=== PATIENT | female | born 1980 | race Hispanic/Latino ===

== ENCOUNTER 2019-01-23 08:36 | Emergency (ER) | payer OTHER ==
[2019-01-23 09:04] LABS: Absolute Lymphocytes (CBC) 1.2 K/uL (0.7-4.9); Basophils % 0.7 % (0-1.3); Hematocrit 31.3 % (36.0-45.0); Lymphocytes % 21.8 % (15.3-44.8); MPV 7.1 fL (7.6-11.3); RBC Red Blood Cell Count 4.02 M/uL (3.86-4.86)
[2019-01-23] MEDS ORDERED: NA CHLORIDE 0.9% 1,000 ML ONE (09:12)
[2019-01-23 09:24] LABS: Urine Blood 2+ (NEG); Urine Glucose NEGATIVE (NEG); Urine Protein TRACE (NEG); Urine pH 5.5 (5.0-7.0)
[2019-01-23 09:29] LABS: Albumin 3.5 g/dL (3.4-5.0); Bilirubin Direct 0.1 mg/dL (0-0.2); Bilirubin Total 0.3 mg/dL (0.2-1.0); Potassium 3.3 mmol/L (3.5-5.1); Protein, Total 8.1 g/dL (6.4-8.2)
[2019-01-23 09:40] LABS: Urine Bacteria >50 /HPF (<20); Urine RBC >50 /HPF (NONE SEEN)
[2019-01-23 09:41] LABS: Urine Culture Reflex Order NOT NEEDED; Urine Mucus LIGHT /HPF (NONE SEEN)
--- NOTE | 2019-01-23 10:05 | RAD REPORT ---
EXAM DESCRIPTION: CT - Stone Protocol - 01/23/2019 9:15 am CLINICAL HISTORY: Abdominal pain, back pain, dysuria COMPARISON: CT January 2013 TECHNIQUE: Axial 5 mm thick images were obtained without oral or IV contrast. The [id number] span s the entirety of the system partially obscuring uppermost abdomen and lung bases. All CT scans are performed using dose optimization technique as appropriate and may include automated exposure control or mA/KV adjustment according to patient size. FINDINGS: No hydronephrosis is present and no obstructing ureteral calculi. No suspicious renal mass es. Isodense masses and pyelonephritis are not excluded on a stone protocol CT scan. No urinary bladd er suspicious finding. No significant adrenal finding. Multiple phleboliths are present in the pelvis . Contracted state of the bladder limits assessment. Uterus and ovaries show no suspicious findings. Imaged portions of the liver, spleen and pancreas show no suspicious findings on non-contrast imaging . Gallbladder is absent. No biliary tree dilatation. No suspicious bowel findings. Appendix is not clearly defined. No indirect evidence for appendicitis. No hernia, mass or bulky lymphadenopathy noted. No free air, free fluid or inflammatory stranding. No significant bony abnormality. IMPRESSION: Negative CT stone protocol study. Isodense masses, pyelonephritis and cystitis cannot be fully excluded on a noncontrast CT study.
[2019-01-23] MEDS ORDERED: POTASSIUM CL SA 10 MEQ TAB PO ONE (10:17)
[2019-01-23] MEDS ORDERED: SMZ./TMP. 800/160 MG TABLET ONE (10:17)
--- NOTE | 2019-01-23 10:22 | ER ---
Nurse's Notes [facility] Name: Jory Wood Age: 38 yrs Sex: Female : 1980 Arrival Date: 01/23/2019 Time: 08:38 Bed 17 Private MD: Diagnosis: Urinary tract infection, site not specified Presentation: 01/23 08:46 Presenting complaint: Mid back pain that radiates to upper abdomen since 0400 today. hb Also reports foul smelling urine and urinary frequency x 2 days. Transition of care: patient was not received from another setting of care. Onset of symptoms was January 22, 2019. Risk Assessment: Do you want to hurt yourself or someone else? Patient reports no desire to harm self or others. Initial Sepsis Screen: Does the patient meet any 2 criteria? No. Patient's initial sepsis screen is negative. Does the patient have a suspected source of infection? No. Patient's initial sepsis screen is negative. Care prior to arrival: None. 08:46 Method Of Arrival: Ambulatory 08:46 Acuity: ARUN 3 hb Triage Assessment: 08:49 General: Appears in no apparent distress. uncomfortable, Behavior is calm, cooperative. hb Pain: Pain currently is 8 out of 10 on a pain scale. EENT: No signs and/or symptoms were reported regarding the EENT system. Neuro: Level of Consciousness is awake, alert, obeys commands, Oriented to person, place, time, situation. Cardiovascular: Capillary refill < 3 seconds Patient's skin is warm and dry. Respiratory: Airway is patent Respiratory effort is even, unlabored, Respiratory pattern is regular, symmetrical, Breath sounds are clear bilaterally. GI: Abdomen is non-distended, Bowel sounds present X 4 quads. Abd is soft X 4 quads Abdomen is tender to palpation right upper and right lower quadrant Reports upper abdominal pain. : Reports urinary frequency, foul smelling urine. Derm: Skin is pink, warm \T\ dry. Musculoskeletal: Range of motion: Reports mid back pain that radiates to upper abdomen. 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 - Social history:: Smoking status: Patient/guardian denies using tobacco. - Ebola Screening: : No symptoms or risks identified at this time. Screenin:51 Abuse screen: Denies threats or abuse. Denies injuries from another. Nutritional hb screening: No deficits noted. Tuberculosis screening: No symptoms or risk factors identified. Fall Risk None identified. Assessment: 08:51 General: see triage assessment. hb 09:40 Reassessment: Patient appears in no apparent distress at this time. Patient and/or hb family updated on plan of care and expected duration. Pain level reassessed. Patient is alert, oriented x 3, equal unlabored respirations, skin warm/dry/pink. Vital Signs: 08:48 BP 124 / 94; Pulse 76; Resp 16; Temp 97.1; Pulse Ox 100% ; Weight 83.01 kg; Height 5 hb ft. (152.40 cm); Pain 8/10; 10:00 BP 122 / 88; Pulse 74; Resp 14; Pulse Ox 100% on R/A; hb 08:48 Body Mass Index 35.74 (83.01 kg, 152.40 cm) hb ED Course: 08:38 Patient arrived in ED. as 08:41 Dan[facility]C [facility] kb 08:41 Shane Donaldson MD is Attending Physician. kb 08:46 Jamia Corbett, ANA is Primary Nurse. hb 08:47 Triage completed. hb 08:48 Arm band placed on. hb 08:51 Patient has correct armband on for positive identification. Bed in low position. Call light in reach. Side rails up X 1. 08:57 Initial lab(s) drawn, by me, sent to lab. Inserted saline lock: 22 gauge in right jb1 antecubital area, using aseptic technique. Blood collected. 09:17 CT Stone Protocol In Process Unspecified. EDMS 10:31 No provider procedures requiring assistance completed. IV discontinued, intact, hb bleeding controlled, No redness/swelling at site. Pressure dressing applied. Administered Medications: 09:00 Drug: NS 0.9% 1000 ml Route: IV; Rate: 1000 ml; Site: right antecubital; hb 10:00 Follow up: Response: No adverse reaction; IV Status: Completed infusion; IV Intake: hb 1000ml 10:20 Drug: Potassium Chloride 20 mEq Route: PO; hb 10:33 Follow up: Response: Medication administered at discharge. hb 10:20 Drug: Bactrim (160 mg-800 mg (DS) 1 tablet Route: PO; hb 10:33 Follow up: Response: Medication administered at discharge. hb Intake: 10:00 IV: 1000ml; Total: 1000ml. hb Outcome: 10:21 Discharge ordered by . bouchra 10:31 Discharged to home ambulatory. hb 10:31 Condition: stable 10:31 Discharge instructions given to patient, Instructed on discharge instructions, follow up and referral plans. medication usage, Demonstrated understanding of instructions, follow-up care, medications, Prescriptions given X 1. 10:32 Patient left the ED. hb 10:34 Patient left the ED. hb Addendum: 01/26/2019 07:22 Addendum: Culture Results: Positive urine culture. Bacteria is resistant to, has s s intermediate sensitivity, or is not tested against prescribed antibiotics. Report given to KENDRICK for further evaluation and then to flask pusher for follow up with patient. 18:40 Addendum: Culture Results: Phone call Attempt #1 pt still having urinary s/s, called in i w Macrobid 100 mg BID to YO SULLIVAN. Signatures: Dispatcher [employer] José Luis Garcia [email or web address] Danay Vargas, SOAP TENDER-Kar DAVEY-Pamella Jenkins Irene, RN ANA Cha Pathak RN RN ss Baxter, Heather, RN RN
--- NOTE | 2019-01-23 10:22 | EDPHYS ---
Physician Documentation [facility] Name: Jory Wood Age: 38 yrs Sex: Female : 1980 Arrival Date: 01/23/2019 Time: 08:38 Bed 17 Private MD: ED Physician Shane Donaldson HPI: 01/23 08:58 This 38 yrs old Female presents to ER via Ambulatory with complaints of Back kb Pain, Abdominal Pain. 09:02 The patient presents with abdominal pain in the right upper quadrant, right lower kb quadrant. Onset: The symptoms/episode began/occurred this morning, at 04:00. The symptoms do not radiate. Associated signs and symptoms: Pertinent positives: flank pain, foul smelling urine, urgency. The symptoms are described as constant. Modifying factors: The symptoms are alleviated by nothing, the symptoms are aggravated by nothing. Severity of pain: At its worst the pain was moderate in the emergency department the pain is unchanged. The patient has not experienced similar symptoms in the past. The patient has not recently seen a physician. Pt reports right back and abd pain that started at 0400 this morning. States she noticed urinary urgency yesterday. Today had foul smelling urine. 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 - Social history:: Smoking status: Patient/guardian denies using tobacco. - Ebola Screening: : No symptoms or risks identified at this time. ROS: 08:59 Constitutional: Negative for fever, chills, and weight loss, ENT: Negative for injury, kb pain, and discharge, Neck: Negative for injury, pain, and swelling, Cardiovascular: Negative for chest pain, palpitations, and edema, Respiratory: Negative for shortness of breath, cough, wheezing, and pleuritic chest pain, Back: Negative for injury and pain, MS/Extremity: Negative for injury and deformity, Skin: Negative for injury, rash, and discoloration, Neuro: Negative for headache, weakness, numbness, tingling, and seizure. 08:59 Abdomen/GI: Positive for abdominal pain. 08:59 : Positive for flank pain, foul smelling urine, urgency. Exam: 09:00 Constitutional: This is a well developed, well nourished patient who is awake, alert, kb and in no acute distress. Head/Face: Normocephalic, atraumatic. Neck: Trachea midline, no thyromegaly or masses palpated, and no cervical lymphadenopathy. Supple, full range of motion without nuchal rigidity, or vertebral point tenderness. No Meningismus. Chest/axilla: Normal chest wall appearance and motion. Nontender with no deformity. No lesions are appreciated. Cardiovascular: Regular rate and rhythm with a normal S1 and S2. No gallops, murmurs, or rubs. Normal PMI, no JVD. No pulse deficits. Respiratory: Lungs have equal breath sounds bilaterally, clear to auscultation and percussion. No rales, rhonchi or wheezes noted. No increased work of breathing, no retractions or nasal flaring. Skin: Warm, dry with normal turgor. Normal color with no rashes, no lesions, and no evidence of cellulitis. MS/ Extremity: Pulses equal, no cyanosis. Neurovascular intact. Full, normal range of motion. Neuro: Awake and alert, GCS 15, oriented to person, place, time, and situation. Cranial nerves II-XII grossly intact. Motor strength 5/5 in all extremities. Sensory grossly intact. Cerebellar exam normal. Normal gait. 09:00 Abdomen/GI: Inspection: abdomen appears normal, Bowel sounds: normal, in all quadrants, Palpation: soft, in all quadrants, mild abdominal tenderness, in the right upper quadrant and right lower quadrant. 09:00 Back: CVA tenderness, that is mild, is noted on the right. Vital Signs: 08:48 BP 124 / 94; Pulse 76; Resp 16; Temp 97.1; Pulse Ox 100% ; Weight 83.01 kg; Height 5 hb ft. (152.40 cm); Pain 8/10; 10:00 BP 122 / 88; Pulse 74; Resp 14; Pulse Ox 100% on R/A; hb 08:48 Body Mass Index 35.74 (83.01 kg, 152.40 cm) hb MDM: 08:41 Patient medically screened. kb 08:58 Data reviewed: vital signs, nurses notes. Data interpreted: Pulse oximetry: on room air kb is 100 %. Interpretation: normal. 10:12 Counseling: I had a detailed discussion with the patient and/or guardian regarding: the kb historical points, exam findings, and any diagnostic results supporting the discharge/admit diagnosis, lab results, radiology results, the need for outpatient follow up, a family practitioner, to return to the emergency department if symptoms worsen or persist or if there are any questions or concerns that arise at home. 01/23 08:45 Order name: Basic Metabolic Panel; Complete Time: 09:29 kb 01/23 08:45 Order name: CBC with Diff; Complete Time: 09:09 kb 01/23 08:45 Order name: Hepatic Function; Complete Time: : kb 01/23 08:45 Order name: Lipase; Complete Time: : kb 01/23 09:00 Order name: Urine Microscopic Only; Complete Time: 09:51 eb 01/23 09:00 Order name: Urine Culture eb 01/23 08:45 Order name: IV Saline Lock; Complete Time: 08:57 kb 01/23 08:45 Order name: Labs collected and sent; Complete Time: 08:57 kb 01/23 09:00 Order name: CT Stone Protocol; Complete Time: 10:11 eb 01/23 09:02 Order name: Urine Dipstick--Ancillary (enter results); Complete Time: 09:29 eb 01/23 09:02 Order name: Urine --Ancillary (enter results); Complete Time: 09:29 eb 01/23 08:45 Order name: Urine Dipstick-Ancillary (obtain specimen); Complete Time: 08:52 kb Administered Medications: 09:00 Drug: NS 0.9% 1000 ml Route: IV; Rate: 1000 ml; Site: right antecubital; hb 10:00 Follow up: Response: No adverse reaction; IV Status: Completed infusion; IV Intake: hb 1000ml 10:20 Drug: Potassium Chloride 20 mEq Route: PO; hb 10:33 Follow up: Response: Medication administered at discharge. hb 10:20 Drug: Bactrim (160 mg-800 mg (DS) 1 tablet Route: PO; hb 10:33 Follow up: Response: Medication administered at discharge. hb Disposition: 12:45 Co-signature as Attending Physician, Shane Donaldson MD I agree with the assessment and kdr plan of care. Disposition: 01/23/19 10:21 Discharged to Home. Impression: Urinary tract infection, site not specified. - Condition is Stable. - Discharge Instructions: Urinary Tract Infection, Adult, [id number]. - Prescriptions for Bactrim DS 800- 160 mg Oral Tablet - take 1 tablet by ORAL route every 12 hours for 7 days; 14 tablet. - Medication Reconciliation Form, Thank You Letter, Antibiotic Education, Prescription Opioid Use, Work release form form. - Follow up: Emergency Department; When: As needed; Reason: Worsening of condition. Follow up: Private Physician; When: 2 - 3 days; Reason: Recheck today's complaints, Continuance of care, Re-evaluation by your physician. Signatures: Dispatcher [employer] EDMS Danay Vargas, CUSTOMER SUCCESS REPRESENTATIVE-C CUSTOMER SUCCESS REPRESENTATIVE-Shane Epps MD MD kdr Jamia Corbett RN RN hb Corrections: (The following items were deleted from the chart) 10:32 10:21 01/23/2019 10:21 Discharged to Home. Impression: Urinary tract infection, site hb not specified. Condition is Stable. Forms are Medication Reconciliation Form, Thank You Letter, Antibiotic Education, Prescription Opioid Use. Follow up: Emergency Department; When: As needed; Reason: Worsening of condition. Follow up: Private Physician; When: 2 - 3 days; Reason: Recheck today's complaints, Continuance of care, Re-evaluation by your physician. kb 10:34 10:32 01/23/2019 10:21 Discharged to Home. Impression: Urinary tract infection, site hb not specified. Condition is Stable. Discharge Instructions: Urinary Tract Infection, Adult, [id number]. Prescriptions for Bactrim DS 800-160 mg Oral Tablet - take 1 tablet by ORAL route every 12 hours for 7 days; 14 tablet. and Forms are Medication Reconciliation Form, Thank You Letter, Antibiotic Education, Prescription Opioid Use, Work release form. Follow up: Emergency Department; When: As needed; Reason: Worsening of condition. Follow up: Private Physician; When: 2 - 3 days; Reason: Recheck today's complaints, Continuance of care, Re-evaluation by your physician. hb
[2019-01-23 10:45] VITALS: BP 124/94; TEMP 97.1; O2SAT 100
== END 2019-01-23 10:34 | disposition home or self-care (01) ==
LOC: ER 08:36
DX: N39.0 Urinary tract infection, site not specified (principal); Z88.5 Allergy status to narcotic agent
CPT/HCPCS: 87088; 85025; 87086; 80048; 36415; 81025; 80076; 87077; 87186; 83690; 76377; 74176; 96360; 99284; J7030; 81003; 81015

== ENCOUNTER 2019-10-23 15:06 | Emergency (ER) | payer SELFPAY, OTHER ==
--- NOTE | 2019-10-23 17:54 | RAD REPORT ---
EXAM DESCRIPTION: Marylou Single View10/23/2019 5:11 pm CLINICAL HISTORY: cough COMPARISON: 2012 FINDINGS: The lungs appear clear of acute infiltrate. The heart is normal size IMPRESSION: No acute abnormalities displayed
--- NOTE | 2019-10-23 18:07 | ER ---
Nurse's Notes [facility] Name: Jory Wood Age: 39 yrs Sex: Female : 1980 Arrival Date: 10/23/2019 Time: 15:14 Bed 14 Private MD: Diagnosis: Shortness of breath;Coronavirus infection, unspecified Presentation: 10/22 15:20 Chief complaint: Patient states: was covid pos. 10/13/19, symptoms have been getting em worse, reports cough when taking deep breath, feels tightness around throat and sinus pressure, denies N/V/D or fever. Coronavirus screen: Patient reports a cough. Patient reports shortness of breath or difficulty breathing. Patient denies measured and/or subjective temperature greater than 100.4F prior to today's visit. Patient denies travel on a cruise ship or to a country the [facility] currently lists as an affected area. Patient denies contact with known and/or suspected case of COVID-19. Ebola Screen: Patient negative for fever greater than or equal to 101.5 degrees Fahrenheit, and additional compatible Ebola Virus Disease symptoms Patient denies exposure to infectious person. Patient denies travel to an Ebola-affected area in the 21 days before illness onset. No symptoms or risks identified at this time. Initial Sepsis Screen: Does the patient meet any 2 criteria? HR > 90 bpm. No. Patient's initial sepsis screen is negative. Does the patient have a suspected source of infection? No. Patient's initial sepsis screen is negative. Risk Assessment: Do you want to hurt yourself or someone else? Patient reports no desire to harm self or others. Onset of symptoms was October 13, 2019. 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 - Social history:: Smoking status: Patient denies any tobacco usage or history of. Screenin:30 Abuse screen: Denies threats or abuse. Nutritional screening: No deficits noted. vc Tuberculosis screening: No symptoms or risk factors identified. Fall Risk None identified. Assessment: 15:45 General: Appears in no apparent distress. Behavior is calm, cooperative, appropriate ah for age. Pain: Denies pain. Neuro: Level of Consciousness is awake, alert, obeys commands, Oriented to person, place, time, situation, Appropriate for age. Cardiovascular: Heart tones S1 S2 present Capillary refill < 3 seconds Patient's skin is warm and dry. Respiratory: Reports shortness of breath on exertion pain with cough Airway is patent Respiratory effort is even, unlabored, Respiratory pattern is regular, symmetrical, the patient has mild shortness of breath. GI:. Derm: Skin is intact, is healthy with good turgor, Skin is dry. Vital Signs: 15:20 BP 117 / 93; Pulse 95; Resp 20; Temp 98.9(O); Pulse Ox 100% on R/A; Weight 73.94 kg; em Height 5 ft. 0 in. (152.40 cm); 16:30 BP 99 / 75; Pulse 74; Resp 18; Pulse Ox 100% ; ah 17:15 BP 108 / 87; Pulse 75; Resp 17; Pulse Ox 100% ; ah 18:00 BP 112 / 83; Pulse 81; Resp 17; Pulse Ox 100% ; ah 15:20 Body Mass Index 31.83 (73.94 kg, 152.40 cm) em ED Course: 15:14 Patient arrived in ED. [facility] 15:22 Triage completed. em 15:22 Arm band placed on. em 15:24 Patient notified of wait time. em 15:32 Shane Donaldson MD is Attending Physician. kdr 16:13 Monserrat Shelton, RN is Primary Nurse. ah 16:15 Patient has correct armband on for positive identification. Placed in gown. Bed in low vc position. Call light in reach. Side rails up X 1. monitoring and evaluation advisor on. Pulse ox on. NIBP on. 17:11 CXR XRAY In Process Unspecified. EDMS 18:34 No provider procedures requiring assistance completed. IV discontinued, intact, vc bleeding controlled, No redness/swelling at site. Pressure dressing applied. Administered Medications: No medications were administered Outcome: 18:06 Discharge ordered by . kdr 18:35 Discharged to home ambulatory. vc 18:35 Condition: good 18:35 Discharge instructions given to patient, Instructed on discharge instructions, follow up and referral plans. Demonstrated understanding of instructions, follow-up care. 18:35 Patient left the ED. vc Signatures: Dispatcher [employer] Shane Stephens MD MD kdr Munoz, Edgar, RN RN Char Márquez RN RN Carlos Schulz [id number] Monserrat Shelton RN RN
--- NOTE | 2019-10-23 18:07 | EDPHYS ---
Physician Documentation [facility] Name: Jory Wood Age: 39 yrs Sex: Female : 1980 Arrival Date: 10/23/2019 Time: 15:14 Bed 14 Private MD: ED Physician Shane Donaldson HPI: 10/22 16:06 This 39 yrs old Female presents to ER via Ambulatory with complaints of kdr COVID+, SYMPTOMS ARE WORSENING. 16:06 The patient or guardian reports cough, that is intermittent, described as mild, with no kdr sputum. Onset: The symptoms/episode began/occurred gradually, 2 week(s) ago. Modifying factors: The symptoms are alleviated by nothing. the symptoms are aggravated by activity. Associated signs and symptoms: The patient has no apparent associated signs or symptoms, Pertinent negatives: chest pain, diarrhea, ear ache, fever, nausea, rhinorrhea, sore throat, vomiting. Severity of symptoms: At their worst the symptoms were mild Just not getting better. The patient has not experienced similar symptoms in the past. The patient has been recently seen by a physician:. The patient was tested positive on the th of this month and has since had several recent repeat swabs, She feels she still has some cough and congestion and that it has not improved. She denies fever or SOB at rest. She does not appear acutely ill or toxic in any fashion. 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 - Social history:: Smoking status: Patient denies any tobacco usage or history of. ROS: 16:06 Constitutional: Negative for fever, chills, and weight loss, Eyes: Negative for injury, kdr pain, redness, and discharge, Neck: Negative for injury, pain, and swelling, Cardiovascular: Negative for chest pain, palpitations, and edema, Abdomen/GI: Negative for abdominal pain, nausea, vomiting, diarrhea, and constipation, Back: Negative for injury and pain, : Negative for injury, bleeding, discharge, and swelling, MS/Extremity: Negative for injury and deformity, Skin: Negative for injury, rash, and discoloration, Neuro: Negative for headache, weakness, numbness, tingling, and seizure activity. Psych: Negative for depression, anxiety, suicide ideation, homicidal ideation, and hallucinations, Allergy/Immunology: Negative for hives, rash, and allergies, Endocrine: Negative for neck swelling, polydipsia, polyuria, polyphagia, and marked weight changes. 16:06 Respiratory: Positive for cough, dyspnea on exertion, shortness of breath, on exertion. Negative for hemoptysis, orthopnea, pleurisy, sputum production, wheezing. Exam: 16:06 Constitutional: This is a well developed, well nourished patient who is awake, alert, kdr and in no acute distress. Head/Face: Normocephalic, atraumatic. Eyes: Pupils equal round and reactive to light, extra-ocular motions intact. Lids and lashes normal. Conjunctiva and sclera are non-icteric and not injected. Cornea within normal limits. Periorbital areas with no swelling, redness, or edema. Neck: Trachea midline, no thyromegaly or masses palpated, and no cervical lymphadenopathy. Supple, full range of motion without nuchal rigidity, or vertebral point tenderness. No Meningismus. Chest/axilla: Normal chest wall appearance and motion. Nontender with no deformity. No lesions are appreciated. Cardiovascular: Regular rate and rhythm with a normal S1 and S2. No gallops, murmurs, or rubs. Normal PMI, no JVD. No pulse deficits. Respiratory: Lungs have equal breath sounds bilaterally, clear to auscultation and percussion. No rales, rhonchi or wheezes noted. No increased work of breathing, no retractions or nasal flaring. Abdomen/GI: Soft, non-tender, with normal bowel sounds. No distension or tympany. No guarding or rebound. No evidence of tenderness throughout. Back: No spinal tenderness. No costovertebral tenderness. Full range of motion. Skin: Warm, dry with normal turgor. Normal color with no rashes, no lesions, and no evidence of cellulitis. MS/ Extremity: Pulses equal, no cyanosis. Neurovascular intact. Full, normal range of motion. Neuro: Awake and alert, GCS 15, oriented to person, place, time, and situation. Cranial nerves II-XII grossly intact. Motor strength 5/5 in all extremities. Sensory grossly intact. Cerebellar exam normal. Normal gait. Psych: Awake, alert, with orientation to person, place and time. Behavior, mood, and affect are within normal limits. Vital Signs: 15:20 BP 117 / 93; Pulse 95; Resp 20; Temp 98.9(O); Pulse Ox 100% on R/A; Weight 73.94 kg; em Height 5 ft. 0 in. (152.40 cm); 16:30 BP 99 / 75; Pulse 74; Resp 18; Pulse Ox 100% ; ah 17:15 BP 108 / 87; Pulse 75; Resp 17; Pulse Ox 100% ; ah 18:00 BP 112 / 83; Pulse 81; Resp 17; Pulse Ox 100% ; ah 15:20 Body Mass Index 31.83 (73.94 kg, 152.40 cm) em MDM: 16:06 Data reviewed: vital signs, nurses notes, lab test result(s), radiologic studies. kdr Counseling: I had a detailed discussion with the patient and/or guardian regarding: the historical points, exam findings, and any diagnostic results supporting the discharge/admit diagnosis, lab results, radiology results, the need for outpatient follow up. 17:55 ED course: Failure of radiology read of CXR current delaying finial disposition. kdr 18:06 Patient medically screened. kdr 18:07 ED course: The patient saturation remained acceptable with exertion. [facility] 10/22 16:05 Order name: CXR XRAY; Complete Time: 18:04 kdr 10/22 16:05 Order name: Pulse Ox Sat: During and post exertion; Complete Time: 16:29 kdr Administered Medications: No medications were administered Disposition: 10/23/19 18:06 Discharged to Home. Impression: Shortness of breath, Coronavirus infection, unspecified. - Condition is Stable. - Discharge Instructions: Shortness of Breath, Upper Respiratory Infection, Adult, COVID-19. - Medication Reconciliation Form, Thank You Letter form. - Follow up: Private Physician; When: 2 - 3 days; Reason: If symptoms return, Further diagnostic work-up, Recheck today's complaints, Continuance of care, Re-evaluation by your physician. - Problem is new. - Symptoms are unchanged. Signatures: Dispatcher [employer] EDOH Shane Donaldson MD MD kdr Amandeep Belle RN RN em Char Navarro RN RN vc Corrections: (The following items were deleted from the chart) 18:35 18:06 10/23/2019 18:06 Discharged to Home. Impression: Shortness of breath; Coronavirus vc infection, unspecified. Condition is Stable. Forms are Medication Reconciliation Form, Thank You Letter, Antibiotic Education, Prescription Opioid Use. Follow up: Private Physician; When: 2 - 3 days; Reason: If symptoms return, Further diagnostic work-up, Recheck today's complaints, Continuance of care, Re-evaluation by your physician. Problem is new. Symptoms are unchanged. kdr
[2019-10-23 18:54] VITALS: BP 117/93; TEMP 98.9; O2SAT 100
== END 2019-10-23 18:35 | disposition home or self-care (01) ==
LOC: ER 15:06
DX: U07.1 COVID-19 (principal); R06.02 Shortness of breath; Z88.5 Allergy status to narcotic agent
CPT/HCPCS: 71045; 99284

== ENCOUNTER 2020-05-25 12:35 | Inpatient (IN) | payer OTHER, SELFPAY ==
[2020-05-25 14:05] LABS: Absolute Lymphocytes (CBC) 1.2 K/uL (0.7-4.9); Basophils % 0.6 % (0-1.3); Hematocrit 17.3 % (36.0-45.0); MPV 6.9 fL (7.6-11.3); RBC Red Blood Cell Count 3.04 M/uL (3.86-4.86)
[2020-05-25 14:19] LABS: Urine Blood 2+ (NEG); Urine Glucose NEGATIVE (NEG); Urine Protein NEGATIVE (NEG); Urine Specific Gravity 1.025 (1.005-1.030)
[2020-05-25 14:28] LABS: ALT/SGPT 24 U/L (12-78); AST/SGOT 15 U/L (15-37); Albumin 3.4 g/dL (3.4-5.0); Alkaline Phosphatase 75 U/L (45-117); BUN Blood Urea Nitrogen 13 mg/dL (7-18); Bicarbonate 27 mmol/L (21-32); Bilirubin Direct 0.1 mg/dL (0-0.2); Bilirubin Total 0.4 mg/dL (0.2-1.0); Glucose Level 83 mg/dL (74-106); Lipase 96 U/L (73-393); Potassium 3.7 mmol/L (3.5-5.1); Protein, Total 7.1 g/dL (6.4-8.2); Sodium Level 139 mmol/L (136-145)
[2020-05-25 14:43] LABS: Urine Bacteria LOADED /HPF (<20)
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
[2020-05-25 14:49] LABS: Platelet Estimate INCR; White Blood Cell Scan OK (OK)
[2020-05-25 14:50] LABS: Hypochromasia 3+
[2020-05-25 14:55] LABS: Blood Morphology Comment NOTED (NOT SEEN)
[2020-05-25] MEDS ORDERED: ONDANSETRON 4 MG/2 ML VIAL IV PRN (15:29)
[2020-05-25] MEDS ORDERED: ACETAMINOPHEN 500 MG TAB PO PRN (15:29)
--- NOTE | 2020-05-25 15:39 | P.HP ---
Certification for Inpatient Patient admitted to: Inpatient With expected LOS: >2 Midnights Practitioner: I am a practitioner with admitting privileges, knowledge of patient current condition, hospital course, and medical plan of care. Services: Services provided to patient in accordance with Admission requirements found in Title 42 Section 412.3 of the Code of Federal Regulations Patient History Date of Service: 05/25/20 Reason for admission: Symptomatic anemia History of Present Illness: 39-year-old woman with a history of hemorrhoid was referred to the emergency department by her PCP due to low hemoglobin of 5.7 noted in her doctor's office. Patient reports easy fatigue, lightheadedness and generalized weakness. She presented to her PCPs office we will noted she is pale and therefore did CBC. CBC reported hemoglobin of 5. Patient reports recent intermittent history bloody stools. She denies melena or hematemesis. She denies any abdominal pain. Patient denies any palpitation. Hemoglobin checked here is 5.0. Other blood work is unremarkable. Patient is admitted for further management of symptomatic anemia. Allergies hydrocodone [Hydrocodone] Adverse Reaction (Intermediate, Verified 07/30/12 16:54) Itching [place] Allergy (Uncoded 11/24/16 15:42) Unknown Hydrocodone-Ac Allergy (Uncoded 11/01/16 21:02) Unknown - Past Medical/Surgical History -: Hemorrhoid -: Cholecystectomy - Family History Father -: Hypertension - Social History Smoking Status: Never smoker Alcohol use: No Place of Residence: Home Review of Systems Other: Except as documented, all other systems reviewed and negative. Physical Examination - Physical Exam General: Alert, In no apparent distress, Oriented x3 HEENT: Atraumatic, PERRLA, Mucous membr. moist/pink, EOMI, Sclerae nonicteric Neck: Supple, JVD not distended, No Thyromegaly Respiratory: Clear to auscultation bilaterally, Normal air movement Cardiovascular: No edema, Regular rate/rhythm, Normal S1 S2, No murmurs Gastrointestinal: Normal bowel sounds, Soft and benign, Non-distended, No tenderness Musculoskeletal: No swelling, No tenderness Integumentary: No rashes, No erythema Neurological: Normal speech, Normal strength at 5/5 x4 extr, Cranial nerves 3-12 intact - Studies Laboratory Data (last 24 hrs) 05/25/20 13:45: WBC 4.90, Hgb 5.0 L*, Hct 17.3 L*, Plt Count 460 H 05/25/20 13:45: Sodium 139, Potassium 3.7, BUN 13, Creatinine 0.53 L, Glucose 83, Total Bilirubin 0.4, AST 15, ALT 24, Alkaline Phosphatase 75, Lipase 96 Assessment and Plan - Problems (Diagnosis) (1) Acute blood loss anemia Current Visit: Yes Status: Acute (2) Symptomatic anemia Current Visit: Yes Status: Acute (3) GI bleed Current Visit: Yes Status: Acute - Plan Admit patient to the medical floor. Transfuse 2 units of PRBC. Monitor hemoglobin and transfuse p.r.n. for hemoglobin less than 7. Consult GI. Check iron profile. Clear liquid diet for now. - Advance Directives Does patient have a Living Will: No Does patient have a Durable POA for Healthcare: No
[2020-05-25] MEDS ORDERED: CEFTRIAXONE/SWI 1gm 1 GM/10 ML SYR ONE (15:46)
[2020-05-25] MEDS: NA CHLORIDE 0.9% 1,000 ML IV SCH (16:00)
[2020-05-25] MEDS ORDERED: NA CHLORIDE 0.9% 250 ML IV SCH (16:00)
[2020-05-25 17:56] LABS: Transferrin 345 mg/dL (200-360)
[2020-05-25 18:02] LABS: Iron < 5.0 ug/dL (50-170)
[2020-05-25] MEDS ORDERED: NA CHLORIDE 0.9% 250 ML ONE (22:02)
[2020-05-26 03:57] VITALS: BMI 31.8
[2020-05-26 08:42] LABS: Absolute Lymphocytes (CBC) 1.1 K/uL (0.7-4.9); Basophils % 0.7 % (0-1.3); Hematocrit 22.3 % (36.0-45.0); Lymphocytes % 23.5 % (15.3-44.8); MPV 6.9 fL (7.6-11.3); RBC Red Blood Cell Count 3.47 M/uL (3.86-4.86)
[2020-05-26 08:55] LABS: BUN Blood Urea Nitrogen 10 mg/dL (7-18); Bicarbonate 27 mmol/L (21-32); Glucose Level 78 mg/dL (74-106); Phosphorus 2.9 mg/dL (2.5-4.9); Potassium 3.6 mmol/L (3.5-5.1); Sodium Level 140 mmol/L (136-145)
[2020-05-26] MEDS: NA CHLORIDE 0.9% 1,000 ML IV SCH ×2 (08:59→18:40)
[2020-05-26 09:42] LABS: Anisocytosis 3+; Blood Morphology Comment NOTED (NOT SEEN); Hypochromasia 1+; Platelet Estimate ADEQ; White Blood Cell Scan OK (OK)
[2020-05-26] MEDS ORDERED: NA CHLORIDE 0.9% 250 ML IV SCH (10:00)
[2020-05-26] MEDS ORDERED: INFLUENZA VACCINE (for 3y+) 0.5 ML DOSE IMVAC ONE (10:00)
[2020-05-26] MEDS ORDERED: NA CHLORIDE 0.9% 250 ML ONE (10:26)
[2020-05-26] MEDS ORDERED: Ringers Lactate 1,000 ML IV ONE (12:13)
[2020-05-26] MEDS ORDERED: LIDOCAINE 1% MPF 30 ML VIAL ONE (13:03)
[2020-05-26] MEDS ORDERED: propofoL 200 MG/20 ML VIAL IV ONE (13:03)
--- NOTE | 2020-05-26 13:31 | ENDO RPT ---
[address], [address] EGD PROCEDURE REPORT EXAM DATE: 05/26/2020 PATIENT NAME: Jory Wood MR#: [id number] BIRTHDATE: 1980 ATTENDING: Can Young Dr STATUS: inpatient - 7 AEROTRIANGULATION SPECIALIST: Desi PANG and Janet Molina CST INDICATIONS: The patient is a 39 yr old Female here for an EGD due to anemia PROCEDURE PERFORMED: EGD with biopsy MEDICATIONS: Per Anesthesia. TOPICAL ANESTHETIC: none CONSENT: The patient understands the risks and benefits of the procedure and understands that these risks include, but are not limited to: sedation, allergic reaction, infection, perforation and/or bleeding. Alternative means of evaluation and treatment include, among others: physical exam, x-rays, and/or surgical intervention. The patient elects to proceed with this endoscopic procedure. DESCRIPTION OF PROCEDURE: During intra-op preparation period all mechanical medical equipment was checked for proper function. Hand hygiene and appropriate measures for infection prevention was taken. Procedure, possible complications, and alternatives including but not limited to the possibility of bleeding, perforation, tear, infection, sepsis, need for surgery, need for blood transfusion, and anesthesia related complications were explained to the patient. After the risks, benefits and alternatives of the procedure were thoroughly explained, Informed consent was verified, confirmed and timeout was successfully executed by the treatment team. The patient was placed in the left lateral position. The patient was anesthetized with topical anesthesia. Through the anesthetized oropharyngeal area, the scope was passed without any difficulty. The EG-[id number] ([id number]) endoscope was introduced through the mouth and advanced to the second portion of the duodenum. Retroflexed views revealed a moderate sized hiatal hernia. The gastroscope was then slowly withdrawn and removed. LA Class A esophagitis was found in the lower esophagus. A Schatzki's ring was found in the lower esophagus (no history of dysphagia). A moderate sized hiatal hernia was found. Multiple (3) erosions with surrounding edema were found in the antrum. Multiple biopsies were obtained and sent to pathology. ADVERSE EVENTS: There were no complications. IMPRESSIONS: 1. LA class A esophagitis in the lower esophagus 2. Schatzki's ring in the lower esophagus (no history of dysphagia) 3. Moderate sized hiatal hernia 4. Multiple (3) erosions with surrounding edema in the antrum, s/p biopsies RECOMMENDATIONS: 1. await biopsy results 2. acid suppression therapy 3. colonoscopy REPEAT EXAM: Can Young Dr eSigned: Can Young Dr 05/26/2020 1:31 PM cc: CPT CODES: ICD9 CODES: PATIENT NAME: [place] Jory AshaTran MR#: [id number]
[2020-05-26 14:32] LABS: Hematocrit 27.3 % (36.0-45.0)
--- NOTE | 2020-05-26 14:56 | P.PN ---
Subjective Date of Service: 05/26/20 Chief Complaint: Symptomatic anemia Subjective: No new changes ( no acute changes Denies any bleeding Denies any chest pain or shortness of breath), Improving Review of Systems 10-point ROS is otherwise unremarkable Physical Examination - Vital Signs Temperature: 98.1 F Blood Pressure: 102/62 Pulse: 86 Respirations: 18 Pulse Ox (%): 100 - Physical Exam General: Alert, In no apparent distress, Oriented x3 HEENT: Atraumatic, Normocephalic Neck: Supple Respiratory: Clear to auscultation bilaterally, Normal air movement Cardiovascular: Regular rate/rhythm, Normal S1 S2 Capillary refill: <2 Seconds Gastrointestinal: Soft and benign, W/out hepatosplenomegaly Musculoskeletal: No clubbing, No swelling Integumentary: No rashes, No breakdown Neurological: Normal speech, Normal strength at 5/5 x4 extr Lymphatics: No axilla or inguinal lymphadenopathy Assessment & Plan - Problems (Diagnosis) (1) Acute blood loss anemia Current Visit: Yes Status: Acute (2) GI bleed Current Visit: Yes Status: Acute (3) Symptomatic anemia Current Visit: Yes Status: Acute Physician Review Additional Text: Acute blood-loss anemia Possible GI bleed History of chronic anemia History of Fibroid uterus History hemorrhoids Plan Monitor closely No acute bleeding noted by the patient CBC monitored Hemoglobin improved from 5 But still low less than 7 Will transfuse 1 unit PRBC Appreciate help from GI Start on PPI GI recommended doing an EGD The patient apparently has a history of fibroid Will get a transvaginal ultrasound will also get a abdominal ultrasound Patient has been on iron pills but noncompliant Awaiting further workup and monitoring possible Dc in a.m. if cleared by GI and hemoglobin is stable Time Spent Managing Pts Care (In Minutes): 39
[2020-05-26] MEDS: PANTOPRAZOLE 40MG TABLET PO SCH (16:10)
[2020-05-27] MEDS: NA CHLORIDE 0.9% 1,000 ML IV SCH ×2 (03:04→17:00)
[2020-05-27 04:39] LABS: BUN Blood Urea Nitrogen 9 mg/dL (7-18); Bicarbonate 26 mmol/L (21-32); Glucose Level 76 mg/dL (74-106); Potassium 3.3 mmol/L (3.5-5.1); Sodium Level 139 mmol/L (136-145)
[2020-05-27] MEDS: KCL 20 MEQ/100 mL IVPB 20 MEQ/100 ML BAG IV SCH ×2 (05:40→11:30)
[2020-05-27] MEDS: PANTOPRAZOLE 40MG TABLET PO SCH ×2 (07:30→17:00)
[2020-05-27] MEDS ORDERED: CEFTRIAXONE 1 GM/NS 50 ML 1 GM/50 ML BAG IV SCH (09:00)
--- NOTE | 2020-05-27 10:48 | RAD REPORT ---
EXAM DESCRIPTION: US - Abdomen Exam Complete - 05/27/2020 10:24 am CLINICAL HISTORY: Anemia COMPARISON: Stone Protocol dated 01/23/2019 FINDINGS: Gallbladder is absent. Common bile duct is 10 mm, normal range for post cholecystectomy pa tient, with no common duct stone identified. The liver and spleen show no suspicious findings. No liver capsule nodularity or focal liver lesion. Doppler evaluation shows no portal vein abnormality. The spleen is 10 cm. The pancreas is grossly normal but partially obscured by bowel gas. No hydronephrosis or suspicious mass in either kidney. Aorta and IVC show no significant finding. No ascites or bulky lymphadenopathy. IMPRESSION: Status post cholecystectomy with no biliary tree abnormality. Spleen is 10 cm with no focal splenic abnormality. There is no bulky lymphadenopathy identifiable. Pancreas is too obscured by bowel gas for full assessment.
--- NOTE | 2020-05-27 11:21 | RAD REPORT ---
EXAM DESCRIPTION: US - Transvaginal Study Probe - 05/27/2020 10:42 am CLINICAL HISTORY: ANEMIA AND PELVIC PAIN COMPARISON: Pelvis Complete dated 05/27/2020 TECHNIQUE: Endovaginal sonography was performed. FINDINGS: Transabdominal and endovaginal sonography studies were performed with findings combined in to this single endovaginal report. Right ovary contains a 2.5 centimeter oval cystic mass. There is a septation in the middle which coul d be a true septation or it could represent tube closely abutting smaller cysts. No right adnexal mas s identified. Two small cysts of the left ovary are present. These are anechoic with the largest 1.5 cm in diameter . Smaller cyst is sub centimeter in size. No solid mass. No left adnexal abnormality. The uterus is 9.9 x 4.7 x 5.9 cm. Nabothian cysts are present. No myometrial mass. Endometrial stripe is 12 mm in thickness. In the fundal portion there is heterogeneous mixed hyperechoic and hypoechoic tissue. This may be hemorrhagic material in the fundus if the patient is not postmenopausal. No inva kaylen of the myometrium. An endometrial mass or polyp cannot be excluded. IMPRESSION: Approximately 2 x 1.2 centimeter area of heterogeneous tissue in the fundal portion of t he endometrial cavity. No extension into the myometrium seen. The endometrial finding may simply be heterogeneous hemorrhagic material that may clear with time. Co mplex polyp or endometrial mass cannot be excluded. Patient could be re-evaluated after 2-3 menstrual cycles to see if the finding persists. Alternativel y, tissue sampling could be performed. Bilateral ovarian cysts are present. The 2.5 centimeter right ovarian cyst may be a single septated c yst or 2 closely abutting smaller cysts.
[2020-05-27] MEDS: CEFTRIAXONE/SWI 1gm 1 GM/10 ML SYR IV SCH (11:30)
--- NOTE | 2020-05-27 13:04 | RAD REPORT ---
EXAM DESCRIPTION: US - Pelvis Complete - 05/27/2020 10:24 am CLINICAL HISTORY: Anemia COMPARISON: Transvaginal Study Probe dated 11/01/2016 TECHNIQUE: Transabdominal pelvic sonography was performed. FINDINGS: Transabdominal sonography was performed along with endovaginal sonography. All findings ar e incorporated into the endovaginal report. IMPRESSION: Please see separate endovaginal ultrasound report.
[2020-05-27] MEDS: METOCLOPRAMIDE 10 MG/2mL INJ IV SCH (17:42)
--- NOTE | 2020-05-27 17:48 | P.PN ---
Subjective Date of Service: 05/27/20 Chief Complaint: Symptomatic anemia Patient currently has no complain. She denies any abdominal pain. Physical Examination - Vital Signs Temperature: 98.2 F Blood Pressure: 104/72 Pulse: 81 Respirations: 16 Pulse Ox (%): 100 - Physical Exam General: Alert, In no apparent distress, Oriented x3 HEENT: Mucous membr. moist/pink, Sclerae nonicteric Respiratory: Clear to auscultation bilaterally, Normal air movement Cardiovascular: No edema, Regular rate/rhythm, Normal S1 S2 Gastrointestinal: Soft and benign, Non-distended, No tenderness Musculoskeletal: No swelling Integumentary: No rashes Neurological: Other (No focal motor deficit.) Assessment And Plan - Current Problems (Diagnosis) (1) Acute blood loss anemia Current Visit: Yes Status: Acute (2) Symptomatic anemia Current Visit: Yes Status: Acute (3) GI bleed Current Visit: Yes Status: Acute - Plan Status post 2 units of PRBC. Posttransfusion hemoglobin is up to 8.6. Pelvic ultrasound results reviewed and reporting bilateral ovarian cyst and area of her treatments tissue in the fundal portion of the endometrium GI input appreciated. Upper GI endoscopy: Report esophagitis, areas of erosions with surrounding edema in the gastric antrum and Schatzki ring. Iron level is very low. Start IV iron therapy. GI plans for colonoscopy tomorrow. Colonoscopy prep tonight. Physician Review Additional Text: Plan Monitor closely No acute bleeding noted by the patient CBC monitored Hemoglobin improved from 5 But still low less than 7 Will transfuse 1 unit PRBC Appreciate help from GI Start on PPI GI recommended doing an EGD The patient apparently has a history of fibroid Will get a transvaginal ultrasound will also get a abdominal ultrasound Patient has been on iron pills but noncompliant Awaiting further workup and monitoring possible Dc in a.m. if cleared by GI and hemoglobin is stable
[2020-05-27] MEDS ORDERED: MAGNESIUM CITRATE 300 ML BOT PO SCH (18:00)
[2020-05-27] MEDS ORDERED: GOLYTELY 4000 ML PO SCH (18:00)
[2020-05-28] MEDS: METOCLOPRAMIDE 10 MG/2mL INJ IV SCH (00:23)
[2020-05-28 04:39] LABS: Absolute Lymphocytes (CBC) 1.3 K/uL (0.7-4.9); Basophils % 0.9 % (0-1.3); Lymphocytes % 26.8 % (15.3-44.8); MPV 8.6 fL (7.6-11.3); RBC Red Blood Cell Count 3.75 M/uL (3.86-4.86)
[2020-05-28 04:53] LABS: BUN Blood Urea Nitrogen 13 mg/dL (7-18); Bicarbonate 24 mmol/L (21-32); Glucose Level 94 mg/dL (74-106); Potassium 3.6 mmol/L (3.5-5.1); Sodium Level 141 mmol/L (136-145)
[2020-05-28] MEDS ORDERED: POTASSIUM CL SA 10 MEQ TAB PO ONE (06:17)
[2020-05-28] MEDS ORDERED: SOD FERRIC GLUC COMPLX/SUCROSE 250 MG in NA CHLORIDE 0.9% 250 ML IV SCH (09:00)
[2020-05-28] MEDS: PANTOPRAZOLE 40MG TABLET PO SCH (09:18)
[2020-05-28] MEDS: CEFTRIAXONE/SWI 1gm 1 GM/10 ML SYR IV SCH (09:18)
[2020-05-28] MEDS: NA CHLORIDE 0.9% 1,000 ML IV SCH (10:40)
[2020-05-28 12:00] VITALS: BP 104/74; TEMP 97.2
[2020-05-28 12:14] VITALS: O2SAT 100
--- NOTE | 2020-05-28 14:23 | P.DS ---
Admission Date: 05/25/20 Discharge Date: 05/28/20 Disposition: ROUTINE DISCHARGE Discharge Condition: FAIR Reason for Admission: Symptomatic anemia - Problems (1) Acute blood loss anemia Status: Acute (2) Symptomatic anemia Status: Acute (3) GI bleed Status: Acute Brief History of Present Illness: 39-year-old woman with a history of hemorrhoid was referred to the emergency department by her PCP due to low hemoglobin of 5.7 noted in her doctor's office. Patient reports easy fatigue, lightheadedness and generalized weakness. She presented to her PCPs office we will noted she is pale and therefore did CBC. CBC reported hemoglobin of 5. Patient reports recent intermittent history bloody stools. She denies melena or hematemesis. She denies any abdominal pain. Patient denies any palpitation. Hemoglobin checked here is 5.0. Other blood work is unremarkable. Patient was admitted for further management of symptomatic anemia. Hospital Course: Patient admitted to the medical floor and started on IV Protonix. She was transfused 3 units PRBC which brought her hemoglobin up to 8. Patient was seen in consultation by gastroenterology Dr. Young who performed EGD. EGD reported erosions with surrounding edema in the gastric antrum which were biopsied. Ewa ent also noted to have esophagitis and Schatzki rings. Patient was planned for colonoscopy but she refused the colonoscopy prep. Her hemoglobin has been stable around 8. Iron profile suggested very low iron level. She was given IV iron infusion. Patient requests to go home. She is discharged per her request with oral iron supplementation. She is informed to follow with dr. Young regarding the biopsy result. I also impressed upon her the need for colonoscopy to be done. Vital Signs/Physical Exam: Temp Pulse Resp BP Pulse Ox 97.2 F 80 16 104/74 100 05/28/20 11:59 05/28/20 11:59 05/28/20 11:59 05/28/20 11:59 05/28/20 11:59 General: Alert, In no apparent distress, Oriented x3 HEENT: Mucous membr. moist/pink, Sclerae nonicteric Respiratory: Clear to auscultation bilaterally, Normal air movement Cardiovascular: No edema, Regular rate/rhythm, Normal S1 S2 Gastrointestinal: Normal bowel sounds, Soft and benign, No tenderness Musculoskeletal: No swelling Integumentary: No rashes Neurological: Normal strength at 5/5 x4 extr, Cranial nerves 3-12 intact Laboratory Data at Discharge: WBC 4.90 K/uL (4.3-10.9) 05/28/20 04:20 Hgb 8.0 g/dL (12.0-15.0) L 05/28/20 04:20 Hct 25.0 % (36.0-45.0) L 05/28/20 04:20 Plt Count 363 K/uL (152-406) 05/28/20 04:20 Sodium 141 mmol/L (136-145) 05/28/20 04:20 Potassium 3.6 mmol/L (3.5-5.1) 05/28/20 12:03 BUN 13 mg/dL (7-18) 05/28/20 04:20 Creatinine 0.51 mg/dL (0.55-1.3) L 05/28/20 04:20 Glucose 94 mg/dL (74-106) 05/28/20 04:20 Phosphorus 2.9 mg/dL (2.5-4.9) 05/26/20 08:29 Magnesium 2.0 mg/dL (1.8-2.4) 05/26/20 08:29 Total Bilirubin 0.4 mg/dL (0.2-1.0) 05/25/20 13:45 AST 15 U/L (15-37) 05/25/20 13:45 ALT 24 U/L (12-78) 05/25/20 13:45 Alkaline Phosphatase 75 U/L (45-117) 05/25/20 13:45 Lipase 96 U/L (73-393) 05/25/20 13:45 Home Medications: Ascorbic Acid 500 mg PO BID #60 tablet 05/28/20 Iron Polysaccharide Complex [Ferric X-150] 150 mg PO DAILY #30 capsule 05/28/20 Pantoprazole [Protonix Tab*] 40 mg PO BIDAC #60 tab 05/28/20 New Medications: Ascorbic Acid 500 mg PO BID #60 tablet Iron Polysaccharide Complex [Ferric X-150] 150 mg PO DAILY #30 capsule Pantoprazole [Protonix Tab*] 40 mg PO BIDAC #60 tab Diet: Regular Activity: Ad rosendo Followup: Carlos Frey MD [Primary Care Provider] - 1-2 Weeks (call to schedule appointment) Can Young MD [ASSOCIATE-ACTIVE - CAN ADMIT] - 1-2 Weeks (call to schedule appointment) Time spent managing pt's care (in minutes): 36
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
== END 2020-05-28 15:00 | disposition home or self-care (01) | DRG 368 ==
LOC: ER 12:35 → ERHOLD 15:22 → 4TH 05-26 02:18
PROVIDERS: ADMIT Internal Medicine; ATTEND Internal Medicine
PROC: 30233N1 Transfusion of Nonautologous Red Blood Cells into Peripheral Vein, Percutaneous Approach (ICD-10-PCS; 2020-05-25)
PROC: 0DB78ZX Excision of Stomach, Pylorus, Via Natural or Artificial Opening Endoscopic, Diagnostic (ICD-10-PCS; principal; 2020-05-26 13:00)
DX: K20.91 Esophagitis, unspecified with bleeding (principal); K25.4 Chronic or unspecified gastric ulcer with hemorrhage; D62 Acute posthemorrhagic anemia; K22.2 Esophageal obstruction; K44.9 Diaphragmatic hernia without obstruction or gangrene; D50.9 Iron deficiency anemia, unspecified; Z88.5 Allergy status to narcotic agent; Z79.899 Other long term (current) drug therapy; Z90.49 Acquired absence of other specified parts of digestive tract; Z20.822 Contact with and (suspected) exposure to COVID-19
CPT/HCPCS: 36415; 36430; 76700; 76830; 76856; 80048; 80076; 81003; 81015; 81025; 83540; 83690; 83735; 84100; 84132; 84466; 85014; 85018; 85025; 86850; 86900; 86901; 88305; 88312; 96365; 96366; 99285; J0696; J2704; J2765; J2916; J3480; J7030; J7050; J7120; P9016; U0003

== ENCOUNTER 2020-05-30 13:41 | Observation (INO) | payer OTHER ==
[2020-05-30] MEDS ORDERED: CODEINE 30MG/APAP 300MG TAB ONE (16:31)
[2020-05-30] MEDS ORDERED: IBUPROFEN 400 MG TAB ONE (16:31)
--- NOTE | 2020-05-30 17:49 | RAD REPORT ---
EXAM DESCRIPTION: USExtremity Venous Uni Ltd05/30/2020 5:30 pm CLINICAL HISTORY: Right arm pain COMPARISON: None FINDINGS: The right internal jugular, right subclavian,, right axillary, right brachial, right bas ilic, right ulnar and right radial veins are generally compressible and demonstrate augmentation. Dop pler demonstrates good flow. Echogenic material consistent with acute thrombus is present within distal right cephalic vein. The v ein is noncompressible. IMPRESSION: Acute thrombus within the distal right cephalic vein
[2020-05-30 18:37] LABS: Absolute Lymphocytes (CBC) 1.7 K/uL (0.7-4.9); Basophils % 0.6 % (0-1.3); Hematocrit 29.2 % (36.0-45.0); Lymphocytes % 23.7 % (15.3-44.8); MPV 8.7 fL (7.6-11.3); RBC Red Blood Cell Count 4.27 M/uL (3.86-4.86)
[2020-05-30] MEDS ORDERED: ONDANSETRON 4 MG/2 ML VIAL IV PRN (19:10)
[2020-05-30] MEDS ORDERED: Oxycodone HCl/Acetaminophen 1 TAB TAB PO PRN (19:10)
[2020-05-30] MEDS ORDERED: HYDRALAZINE HCL 20 MG/ML VIAL IV PRN (19:10)
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
--- NOTE | 2020-05-30 19:25 | P.HP ---
Certification for Inpatient Patient admitted to: Observation With expected LOS: <2 Midnights Patient will require the following post-hospital care: None Practitioner: I am a practitioner with admitting privileges, knowledge of patient current condition, hospital course, and medical plan of care. Services: Services provided to patient in accordance with Admission requirements found in Title 42 Section 412.3 of the Code of Federal Regulations Patient History Date of Service: 05/30/20 Reason for admission: Right arm swelling History of Present Illness: 39-year-old female with past medical history of recent upper GI bled with anemia with hemoglobin down to 5.0 requiring multiple PRBC, EGD showing sever eosphagitis , biopsy obtained 1 week ago and started on PPI b.i.d. presented today because of worsening swelling of the right forearm - IV site during hospitalization last week. She also complain of pain as erythema over the area. On arrival in the ED she had an ultrasound of showing acute thrombosis of the right distal cephalic vein. Her hemoglobin has improved to 9.2. She has been admitted for anticoagulation in setting of recent GI bleed Allergies hydrocodone [Hydrocodone] Adverse Reaction (Intermediate, Verified 07/30/12 16:54) Itching [place] Allergy (Uncoded 11/24/16 15:42) Unknown Hydrocodone-Ac Allergy (Uncoded 11/01/16 21:02) Unknown Home Medications: Ascorbic Acid 500 mg PO BID #60 tablet 05/28/20 Iron Polysaccharide Complex [Ferric X-150] 150 mg PO DAILY #30 capsule 05/28/20 Pantoprazole [Protonix Tab*] 40 mg PO BIDAC #60 tab 05/28/20 - Past Medical/Surgical History Diabetic: No -: Hemorrhoid -: Cholecystectomy - Family History Father -: Hypertension, Stroke Notes: dad from stroke in 2009 Mother Notes: No history provided - Social History Alcohol use: Yes CD- Drugs: No Caffeine use: Yes Review of Systems 10-point ROS is otherwise unremarkable Physical Examination - Physical Exam General: Alert, In no apparent distress, Oriented x3 HEENT: Atraumatic, Normocephalic, PERRLA Neck: Supple, 2+ carotid pulse no bruit, JVD not distended Respiratory: Clear to auscultation bilaterally, Normal air movement Cardiovascular: No edema, Normal pulses, Regular rate/rhythm, Normal S1 S2 Capillary refill: <2 Seconds Gastrointestinal: Normal bowel sounds, Hypoactive, Non-distended Musculoskeletal: No clubbing, No swelling, Swelling (over right forearm area) Neurological: Normal speech, Normal strength at 5/5 x4 extr, Sensation intact - Studies Laboratory Data (last 24 hrs) 05/30/20 18:02: WBC 7.00 D, Hgb 9.1 L, Hct 29.2 L D, Plt Count 383 Assessment and Plan - Problems (Diagnosis) (1) Acute cephalic vein thrombosis Current Visit: Yes Status: Acute (2) GI bleed Current Visit: No Status: Acute - Advance Directives Does patient have a Living Will: No Does patient have a Durable POA for Healthcare: No Physician Review: Patient Assessed, Agree with Above Assessment and Plan Physician Review Additional Text: # Right cephalic DVT-due to recent IV sites use during hospitalization -we start anticoagulation with Eliquis -monitor H and H to rule out worsening of GI bleed since recent symptomatic anemia - will need anticoagulation for at least 3 months # Anemia-improving H and H to 9.1 Follow recent GI biopsies -follow iron level , if still low , will do IV loading # DVT prop - on Eliquis Time Spent Managing Pts Care (In Minutes): 65
[2020-05-30 20:42] LABS: Anisocytosis 3+; Blood Morphology Comment NOTED (NOT SEEN); Hypochromasia 1+; Poikilocytosis 1+
[2020-05-30 20:43] LABS: Ovalocytes SLIGHT; Platelet Estimate ADEQ; Teardrop Cell FEW; White Blood Cell Scan OK (OK)
[2020-05-30] MEDS ORDERED: APIXABAN 5 MG TABLET PO SCH (21:00)
[2020-05-30 21:43] LABS: Ferritin 63.2 ng/mL (8-388)
[2020-05-30 21:45] VITALS: BMI 31.8
[2020-05-30 22:04] VITALS: O2SAT 100
[2020-05-30] MEDS: ASCORBIC ACID 500 MG TABLET PO SCH (22:11)
[2020-05-30 22:15] LABS: Protime INR 1.11
[2020-05-30] MEDS: AMOX/K CLAV 875 MG TAB PO SCH (23:05)
[2020-05-30] MEDS ORDERED: SOD FERRIC GLUC COMPLX/SUCROSE 125 MG in NA CHLORIDE 0.9% 100 ML IV SCH (23:08)
[2020-05-31 05:17] LABS: Absolute Lymphocytes (CBC) 1.4 K/uL (0.7-4.9); Basophils % 0.8 % (0-1.3); Hematocrit 27.4 % (36.0-45.0); Lymphocytes % 20.6 % (15.3-44.8); MPV 8.8 fL (7.6-11.3); RBC Red Blood Cell Count 4.01 M/uL (3.86-4.86)
[2020-05-31 05:47] LABS: ALT/SGPT 14 U/L (12-78); AST/SGOT 9 U/L (15-37); Albumin 3.1 g/dL (3.4-5.0); Alkaline Phosphatase 74 U/L (45-117); BUN Blood Urea Nitrogen 15 mg/dL (7-18); Bicarbonate 27 mmol/L (21-32); Bilirubin Total 0.4 mg/dL (0.2-1.0); Glucose Level 92 mg/dL (74-106); Potassium 3.5 mmol/L (3.5-5.1); Protein, Total 6.6 g/dL (6.4-8.2); Sodium Level 139 mmol/L (136-145)
[2020-05-31] MEDS ORDERED: SOD FERRIC GLUC COMPLX/SUCROSE 125 MG in NA CHLORIDE 0.9% 100 ML IV SCH (08:00)
[2020-05-31] MEDS: AMOX/K CLAV 875 MG TAB PO SCH (08:55)
[2020-05-31] MEDS: ASCORBIC ACID 500 MG TABLET PO SCH (08:55)
[2020-05-31] MEDS: PANTOPRAZOLE 40MG TABLET PO SCH ×2 (08:57→16:13)
[2020-05-31] MEDS ORDERED: IRON POLYSACCHARIDE COMPLEX 150 MG PO SCH (09:00)
[2020-05-31] MEDS ORDERED: APIXABAN 5 MG TABLET PO SCH (09:00)
[2020-05-31 12:36] LABS: Hematocrit 28.5 % (36.0-45.0); MPV 8.6 fL (7.6-11.3); RBC Red Blood Cell Count 4.17 M/uL (3.86-4.86)
--- NOTE | 2020-05-31 13:33 | P.DS ---
Admission Date: 05/30/20 Discharge Date: 05/31/20 Disposition: ROUTINE DISCHARGE Discharge Condition: GOOD Reason for Admission: Right arm swelling Procedures: Venous U/S (05/30): Acute thrombus within the distal right cephalic vein. The right internal jugular, right subclavian,, right axillary, right brachial, right basilic, right ulnar and right radial veins are generally compressible and demonstrate augmentation. Doppler demonstrates good flow. Problem List: Acute cephalic vein thrombosis / phlebitis h/o recent GI bleed Brief History of Present Illness: 39yo F, PMH: recent upper GI bled with anemia with hemoglobin down to 5.0 requiring multiple PRBC, EGD showing sever esophagitis , biopsy obtained 1 week ago and started on PPI b.i.d. presented today because of worsening swelling of the right forearm - IV site during hospitalization last week. She also complain of pain and erythema over the area. On arrival in the ED she had an ultrasound of showing acute thrombosis of the right distal cephalic vein. Her hemoglobin has improved to 9.2. She has been admitted for anticoagulation in setting of recent GI bleed Hospital Course: Patient was admitted for observation after initiation of anticoagulation for her acute cephalic vein thrombosis. After further review of location of venous thrombosis (superficial vein) and due to recently having a G.I. bleed, anticoagulation was discontinued. Review of literature revealed that ongoing recommendation at this time is to NOT treat superficial vein thrombosis as if it were a DVT. On further review of the imaging and discussion with the patient, it was decided to discontinue anticoagulation, Venous thrombosis was found in the superficial, distal cephalic vein. There is no DVT. She is discharged home to continue warm compress, elevation alarm, and prescribed Augmentin for possible cellulitis Patient was advised to follow up with her PCP in the next few days, if pain persists / worsening, would recommend repeat ultrasound and consideration for a low dose anticoagulation at that point. She was found to be anemic, however improved compared to recent hospitalization. Iron levels were checked and noted to be low, she did receive IV iron infusion Vital Signs/Physical Exam: Physical Exam General: Alert, In no apparent distress, Oriented x3 HEENT: Atraumatic, Normocephalic, PERRLA Neck: Supple, 2+ carotid pulse no bruit, JVD not distended Respiratory: Clear to auscultation bilaterally, Normal air movement Cardiovascular: No edema, Normal pulses, Regular rate/rhythm, Normal S1 S2 Capillary refill: <2 Seconds Gastrointestinal: Normal bowel sounds, soft, nontender Musculoskeletal: mild swelling with minimal erythema in/around antecubital fossa, no added warmth on palpation Neurological: Normal speech, Normal strength at 5/5 x4 extr, Sensation intact Temp Pulse Resp BP Pulse Ox 97.5 F 74 18 106/69 100 05/31/20 11:37 05/31/20 11:37 05/31/20 11:37 05/31/20 11:37 05/31/20 11:37 Laboratory Data at Discharge: WBC 6.20 K/uL (4.3-10.9) 05/31/20 12:09 Hgb 8.8 g/dL (12.0-15.0) L 05/31/20 12:09 Hct 28.5 % (36.0-45.0) L 05/31/20 12:09 Plt Count 346 K/uL (152-406) 05/31/20 12:09 PT 12.8 SECONDS (9.5-12.5) H 05/30/20 21:04 INR 1.11 05/30/20 21:04 APTT 21.8 SECONDS (24.3-36.9) L 05/30/20 21:04 Sodium 139 mmol/L (136-145) 05/31/20 04:57 Potassium 3.5 mmol/L (3.5-5.1) 05/31/20 04:57 BUN 15 mg/dL (7-18) 05/31/20 04:57 Creatinine 0.58 mg/dL (0.55-1.3) 05/31/20 04:57 Glucose 92 mg/dL (74-106) 05/31/20 04:57 Total Bilirubin 0.4 mg/dL (0.2-1.0) 05/31/20 04:57 AST 9 U/L (15-37) L 05/31/20 04:57 ALT 14 U/L (12-78) 05/31/20 04:57 Alkaline Phosphatase 74 U/L (45-117) 05/31/20 04:57 Home Medications: RX: Ascorbic Acid 500 mg PO BID #60 tablet 05/28/20 RX: Iron Polysaccharide Complex [Ferric X-150] 150 mg PO DAILY #30 capsule 05/28/20 RX: Pantoprazole [Protonix Tab*] 40 mg PO BIDAC #60 tab 05/28/20 RX: Amox/Clavulanate [Augmentin 875-125 Tab*] 875 mg PO BID 7 Days #14 tab 05/31/20 New Medications: RX: Amox/Clavulanate [Augmentin 875-125 Tab*] 875 mg PO BID 7 Days #14 tab Physician Discharge Instructions: You were found to have a blood clot in your superficial vein - Cephalic vein in your right arm. You do not require blood thinners at this time, especially with your recent history of ulcers/bleeding in your stomach. Please follow up with your PCP. Continue to do warm compress on the area, tylenol for pain. If the pain persists, would consider repeat ultrasound to re- evaluate the blood clot and possibly low dose anticoagulation (blood thinner) with caution due to your recent GI bleed. You are discharged with augmentin - antibiotic for possible infection of the area. Diet: Regular Activity: Ad rosendo Followup: Carlos Frey MD [Primary Care Provider] - 1 Week (PCP- call to schedule an appointment) Time spent managing pt's care (in minutes): 40
[2020-05-31 15:59] VITALS: BP 97/66; TEMP 98.2
== END 2020-05-31 17:00 | disposition home or self-care (01) ==
LOC: ER 13:41 → ERHOLD 19:12 → 4TH 21:10
PROVIDERS: ADMIT Internal Medicine; ATTEND Hospitalist
DX: I82.611 Acute embolism and thrombosis of superficial veins of right upper extremity (principal); D64.9 Anemia, unspecified; Z20.822 Contact with and (suspected) exposure to COVID-19
CPT/HCPCS: 36415; 80053; 82728; 83540; 84466; 85025; 85027; 85610; 85730; 93971; 99285; G0378; J2916; U0003

== ENCOUNTER 2021-04-13 13:26 | Emergency (ER) | payer OTHER ==
[2021-04-13 15:02] LABS: Absolute Lymphocytes (CBC) 1.6 K/uL (0.7-4.9); Lymphocytes % 33.3 % (15.3-44.8); MPV 6.3 fL (7.6-11.3); RBC Red Blood Cell Count 3.38 M/uL (3.86-4.86)
[2021-04-13 15:16] LABS: Hematocrit 19.6 % (36.0-45.0)
[2021-04-13] MEDS ORDERED: NA CHLORIDE 0.9% 1,000 ML ONE ×2 (15:16→18:33)
[2021-04-13 15:19] LABS: BUN Blood Urea Nitrogen 10 mg/dL (7-18); Bicarbonate 28 mmol/L (21-32); Glucose Level 93 mg/dL (74-106); Potassium 3.4 mmol/L (3.5-5.1); Sodium Level 139 mmol/L (136-145)
[2021-04-13] MEDS ORDERED: DIPHENHYDRAMINE 50 MG/ML VIAL ONE (15:27)
[2021-04-13] MEDS ORDERED: ACETAMINOPHEN 325 MG TABLET ONE (15:27)
[2021-04-13 16:24] LABS: Blood Morphology Comment NOTED (NOT SEEN); Hypochromasia 3+; Platelet Estimate INCR
--- NOTE | 2021-04-13 20:31 | EDPHYS ---
Physician Documentation [facility] Name: Jory Wood Age: 40 yrs Sex: Female : 1980 Arrival Date: 04/13/2021 Time: 13:31 Bed 12 Private MD: ED Physician Ye Arroyo HPI: 04/13 15:40 This 40 yrs old Female presents to ER via Ambulatory with complaints of jr8 Abnormal Lab Results - needs blood transfusion. 15:40 This is a 40-year-old female with a history of anemia that presented to the emergency jr8 room after having blood drawn 2 days ago. Patient stated that her hemoglobin was in the fives. Patient stated that she has had increased shortness of breath with exertion, dizziness, fatigue. Has had transfusions in the past secondary to iron deficiency anemia. Was referred to the emergency room after she got her labs back today for another transfusion. Denies any other complaints at this time.. 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 - Social history:: Smoking status: Patient denies any tobacco usage or history of. ROS: 15:40 Eyes: Negative for injury, pain, redness, and discharge, ENT: Negative for injury, jr8 pain, and discharge, Neck: Negative for injury, pain, and swelling, Cardiovascular: Negative for chest pain, palpitations, and edema, Abdomen/GI: Negative for abdominal pain, nausea, vomiting, diarrhea, and constipation, Back: Negative for injury and pain, MS/Extremity: Negative for injury and deformity, Skin: Negative for injury, rash, and discoloration. 15:40 Constitutional: Positive for fatigue. 15:40 Respiratory: Positive for dyspnea on exertion. 15:40 Neuro: Positive for dizziness. Exam: 15:40 Cardiovascular: Regular rate and rhythm with a normal S1 and S2. No gallops, murmurs, jr8 or rubs. Normal PMI, no JVD. No pulse deficits. Respiratory: Lungs have equal breath sounds bilaterally, clear to auscultation and percussion. No rales, rhonchi or wheezes noted. No increased work of breathing, no retractions or nasal flaring. Abdomen/GI: Soft, non-tender, with normal bowel sounds. No distension or tympany. No guarding or rebound. No evidence of tenderness throughout. MS/ Extremity: Pulses equal, no cyanosis. Neurovascular intact. Full, normal range of motion. Neuro: Awake and alert, GCS 15, oriented to person, place, time, and situation. Cranial nerves II-XII grossly intact. Motor strength 5/5 in all extremities. Sensory grossly intact. Cerebellar exam normal. Normal gait. 15:40 ENT: Nares patent. No nasal discharge, no septal abnormalities noted. Tympanic membranes are normal and external auditory canals are clear. Oropharynx with no redness, swelling, or masses, exudates, or evidence of obstruction, uvula midline. Mucous membranes moist. Neck: Trachea midline, no thyromegaly or masses palpated, and no cervical lymphadenopathy. Supple, full range of motion without nuchal rigidity, or vertebral point tenderness. No Meningismus. 15:40 Eyes: Conjunctiva: pale. 15:40 Skin: Appearance: Color: pale. Vital Signs: 13:53 BP 116 / 76; Pulse 84; Resp 17; Temp 97.8; Pulse Ox 100% on R/A; Weight 79.38 kg; jl7 Height 5 ft. 0 in. (152.40 cm); Pain 0/10; 14:56 BP 124 / 81; Pulse 79; Resp 18; Pulse Ox 100% on R/A; ld1 16:23 BP 119 / 72; Pulse 76; Resp 18; Temp 97.6(TE); Pulse Ox 100% on R/A; ld1 17:32 BP 119 / 72; Pulse 72; Resp 14; Temp 98.4(TE); Pulse Ox 100% on R/A; ld1 18:52 BP 109 / 72; Pulse 79; Resp 19; Temp 98.4(TE); Pulse Ox 100% on R/A; Pain 0/10; ld1 20:39 BP 112 / 72; Pulse 79; Resp 19; Temp 98.4; Pulse Ox 100% on R/A; Pain 0/10; ld1 13:53 Body Mass Index 34.18 (79.38 kg, 152.40 cm) jl7 MDM: 14:31 Patient medically screened. jr8 15:40 Data reviewed: vital signs, nurses notes, lab test result(s). Data interpreted: Pulse jr8 oximetry: on room air is 100 %. Interpretation: normal. Counseling: I had a detailed discussion with the patient and/or guardian regarding: the historical points, exam findings, and any diagnostic results supporting the discharge/admit diagnosis, lab results. 17:32 Counseling: I had a detailed discussion with the patient and/or guardian regarding: the jr8 need for outpatient follow up, a family practitioner, to return to the emergency department if symptoms worsen or persist or if there are any questions or concerns that arise at home. Response to treatment: the patient's symptoms have markedly improved after treatment. 04/13 14:32 Order name: CBC with Diff; Complete Time: 16:56 rust 04/13 14:32 Order name: Basic Metabolic Panel; Complete Time: 15:35 8 04/13 14:32 Order name: TS rust 04/13 15:21 Order name: Bb Add On bd 04/13 15:23 Order name: Packed RBC Leukored [facility] 04/13 16:24 Order name: CBC Smear Scan; Complete Time: 16:56 [facility] 04/13 14:32 Order name: IV; Complete Time: 14:56 jr Administered Medications: 15:40 Drug: Tylenol 650 mg Route: PO; ld1 15:40 Follow up: Response: No adverse reaction ld1 15:40 Not Given (Patient Refused): Benadryl (diphenhydrAMINE) 12.5 mg IVP once ld1 Disposition Summary: 04/13/21 20:30 Discharge Ordered Location: Home kb Problem: new kb Symptoms: have improved kb Condition: Stable kb Diagnosis - Anemia, unspecified kb Followup: jr8 - With: Private Physician - When: 2 - 3 days - Reason: Recheck today's complaints, Continuance of care, Re-evaluation by your physician Discharge Instructions: - Discharge Summary Sheet jr8 - Anemia jr8 - Blood Transfusion, Adult jr8 Forms: - Medication Reconciliation Form kb - Thank You Letter kb - Antibiotic Education kb - Prescription Opioid Use kb Addendum: 04/19/2021 21:10 Co-signature as Attending Physician, Ye Arroyo MD I agree with the assessment and r n plan of care. Attestation: The patient's history, exam findings, diagnostics, and a summary of any interventions or procedures was reviewed in detail with Danay RUDD. Signatures: Dispatcher [employer] Danay Gallardo, Ye Mitchell MD MD rn Roszak, Josh, PA PA jr8 Olga Otoole RN RN jl7 Mere Carrillo RN RN ld1
--- NOTE | 2021-04-13 20:31 | ER ---
Nurse's Notes [facility] Name: Jory Wood Age: 40 yrs Sex: Female : 1980 Arrival Date: 04/13/2021 Time: 13:31 Bed 12 Private MD: Diagnosis: Anemia, unspecified Presentation: 04/13 13:53 Chief complaint: Patient states: Dr. Herring sent me for a blood transfusion, my Hgb is jl7 5.5, had a transfusion here last year and have not found the cause. Denies black tarry stools, reports intermittent heavy menstrual cycles. Reports feeling fatigued with activity. Coronavirus screen: At this time, the client does not indicate any symptoms associated with coronavirus-19. Ebola Screen: No symptoms or risks identified at this time. Initial Sepsis Screen: Does the patient meet any 2 criteria? No. Patient's initial sepsis screen is negative. Does the patient have a suspected source of infection? No. Patient's initial sepsis screen is negative. Risk Assessment: Do you want to hurt yourself or someone else? Patient reports no desire to harm self or others. Onset of symptoms is unknown. Care prior to arrival: None. 13:53 Method Of Ar[facility]: [facility] 13:53 Acuity: ARUN 3 jl7 Triage Assessment: 13:56 General: Appears in no apparent distress. uncomfortable, Behavior is calm, cooperative, jl7 appropriate for age. Pain: Denies pain. Neuro: Level of Consciousness is awake, alert, obeys commands, Oriented to person, place, time, situation. Cardiovascular: Patient's skin is warm and dry. Respiratory: Airway is patent Respiratory effort is even, unlabored, Respiratory pattern is regular, symmetrical. Derm: Skin is dry, Skin is pale, Skin temperature is warm. 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 - Social history:: Smoking status: Patient denies any tobacco usage or history of. Screenin:56 Abuse screen: Denies threats or abuse. Denies injuries from another. Nutritional ld1 screening: No deficits noted. Tuberculosis screening: No symptoms or risk factors identified. Fall Risk None identified. Assessment: 14:56 General: Appears in no apparent distress. comfortable, Behavior is calm, cooperative, ld1 appropriate for age. Pain: Denies pain. Neuro: Level of Consciousness is awake, alert, obeys commands, Oriented to person, place, time, situation. Cardiovascular: Capillary refill < 3 seconds Patient's skin is warm and dry. Respiratory: Airway is patent Respiratory effort is even, unlabored. GI: Abdomen is flat, non-distended. : No signs and/or symptoms were reported regarding the genitourinary system. EENT: No signs and/or symptoms were reported regarding the EENT system. Derm: No signs and/or symptoms reported regarding the dermatologic system. Musculoskeletal: No signs and/or symptoms reported regarding the musculoskeletal system. 17:32 Reassessment: Patient appears in no apparent distress at this time. Patient and/or ld1 family updated on plan of care and expected duration. Pain level reassessed. Patient is alert, oriented x 3, equal unlabored respirations, skin warm/dry/pink. Pt receiving blood, denies pain at this time. Patient denies pain at this time. 18:52 Reassessment: Pt receiving second unit of red blood cells. Denies any concerns at this ld1 time. SpO2 100% RA. Vital Signs: 13:53 BP 116 / 76; Pulse 84; Resp 17; Temp 97.8; Pulse Ox 100% on R/A; Weight 79.38 kg; jl7 Height 5 ft. 0 in. (152.40 cm); Pain 0/10; 14:56 BP 124 / 81; Pulse 79; Resp 18; Pulse Ox 100% on R/A; ld1 16:23 BP 119 / 72; Pulse 76; Resp 18; Temp 97.6(TE); Pulse Ox 100% on R/A; ld1 17:32 BP 119 / 72; Pulse 72; Resp 14; Temp 98.4(TE); Pulse Ox 100% on R/A; ld1 18:52 BP 109 / 72; Pulse 79; Resp 19; Temp 98.4(TE); Pulse Ox 100% on R/A; Pain 0/10; ld1 20:39 BP 112 / 72; Pulse 79; Resp 19; Temp 98.4; Pulse Ox 100% on R/A; Pain 0/10; ld1 13:53 Body Mass Index 34.18 (79.38 kg, 152.40 cm) jl7 ED Course: 13:31 Patient arrived in ED. as 13:55 Triage completed. jl7 13:56 Arm band placed on right wrist. jl7 14:31 Alan Veloz PA is PHCP. jr8 14:31 Ye Arroyo MD is Attending Physician. jr8 14:56 Mere Carrillo, RN is Primary Nurse. ld1 14:56 Patient has correct armband on for positive identification. Bed in low position. Call ld1 light in reach. Side rails up X2. Pulse ox on. NIBP on. traffic rate analyst on. Door closed. Noise minimized. 14:56 No provider procedures requiring assistance completed. Inserted saline lock: 20 gauge ld1 in right antecubital area, using aseptic technique. Blood collected. 19:20 PHCP role handed off by Alan Veloz PA kb 19:20 Danay Vargas FNP-C is PHCP. kb 20:40 IV discontinued, intact, bleeding controlled, No redness/swelling at site. ld1 Administered Medications: 15:40 Drug: Tylenol 650 mg Route: PO; ld1 15:40 Follow up: Response: No adverse reaction ld1 15:40 Not Given (Patient Refused): Benadryl (diphenhydrAMINE) 12.5 mg IVP once ld1 Outcome: 20:30 Discharge ordered by . kb 20:40 Discharged to home ambulatory. ld1 20:40 Condition: improved 20:40 Discharge instructions given to patient, Instructed on discharge instructions, follow up and referral plans. Demonstrated understanding of instructions, follow-up care. 20:41 Patient left the ED. ld1 Signatures: Danay Vargas FNP-C FNP-Pamella Jenkins as Alan Veloz PA PA jr8 Olga Otoole RN RN jl7 Mere Carrillo, ANA RN ld1
[2021-04-13 21:30] VITALS: O2SAT 100
[2021-04-13 21:35] VITALS: TEMP 98.4
[2021-04-13 21:38] VITALS: BP 112/72
== END 2021-04-13 20:41 | disposition home or self-care (01) ==
LOC: ER 13:26
PROC: 30233N1 Transfusion of Nonautologous Red Blood Cells into Peripheral Vein, Percutaneous Approach (ICD-10-PCS; principal; 2021-04-13)
DX: D64.9 Anemia, unspecified (principal); Z88.5 Allergy status to narcotic agent
CPT/HCPCS: 85025; 80048; 36415; 86900; 86850; 86901; 99284; 36430; J1200; P9016 ×2; J7030 ×2

== ENCOUNTER 2022-06-08 10:08 | Emergency (ER) | payer OTHER ==
[2022-06-08 11:44] LABS: Absolute Lymphocytes (CBC) 0.9 K/uL (0.7-4.9); Hematocrit 18.5 % (36.0-45.0); Lymphocytes % 11.2 % (15.3-44.8); MPV 8.1 fL (7.6-11.3); RBC Red Blood Cell Count 3.13 M/uL (3.86-4.86)
[2022-06-08] MEDS ORDERED: NA CHLORIDE 0.9% 250 ML ONE ×2 (12:38→16:31)
[2022-06-08 13:04] LABS: Anisocytosis 3+; Blood Morphology Comment NOTED (NOT SEEN); Hypochromasia 2+; Ovalocytes 2+; Platelet Estimate INCR; Poikilocytosis 2+; Teardrop Cell 1+; White Blood Cell Scan OK (OK)
[2022-06-08 19:19] VITALS: O2SAT 100
[2022-06-08 19:23] VITALS: BP 124/74; TEMP 98
--- NOTE | 2022-06-23 15:34 | EDPHYS ---
Physician Documentation [facility] Name: Jory Wood Age: 41 yrs Sex: Female : 1980 Arrival Date: 06/08/2022 Time: 10:22 Bed 13 Private MD: Carlos Frey ED Physician Ye Arroyo HPI: 06/08 10:53 This 41 yrs old Female presents to ER via Ambulatory with complaints of needs pm1 a blood transfusion. 10:53 Patient sent to the ER for blood transfusion by PCP. She saw her PCP yesterday and had pm1 labs. Reports her Hgb was 5.2. Patient reports that her possible baseline line Hgb is between 6 - 8. Severity of symptoms: in the emergency department the symptoms are unchanged. The patient has experienced similar episodes in the past, chronically. The patient has been recently seen by a physician: the patient's primary care provider, Dr. Real. 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 - Social history:: Smoking status: Patient denies any tobacco usage or history of. ROS: 10:53 Constitutional: Negative for fever, chills, and weight loss, Cardiovascular: Negative pm1 for chest pain, palpitations, and edema, Respiratory: Negative for shortness of breath, cough, wheezing, and pleuritic chest pain, Abdomen/GI: Negative for abdominal pain, nausea, vomiting, diarrhea, and constipation, Back: Negative for injury and pain, MS/Extremity: Negative for injury and deformity, Skin: Negative for injury, rash, and discoloration, Neuro: Negative for headache, weakness, numbness, tingling, and seizure. 10:53 All other systems are negative. Exam: 10:53 Constitutional: This is a well developed, well nourished patient who is awake, alert, pm1 and in no acute distress. Head/Face: Normocephalic, atraumatic. 10:53 Eyes: Conjunctiva: pale, bilaterally. 10:53 Cardiovascular: Exam negative for acute changes, Rate: normal, Rhythm: regular, Pulses: no pulse deficits are appreciated. 10:53 Respiratory: Exam negative for acute changes, respiratory distress, shortness of breath. 10:53 Abdomen/GI: Exam negative for acute changes, Inspection: obese Palpation: abdomen is soft and non-tender, in all quadrants. 10:53 Skin: Appearance: normal except for affected area, Color: pale. 10:53 Neuro: Exam negative for acute changes, Orientation: is normal, Mentation: is normal, Motor: is normal, moves all fours, Gait: is steady, at a normal pace, without difficulty. Vital Signs: 10:33 BP 135 / 84; Pulse 109; Resp 18; Temp 97.4(TE); Pulse Ox 100% on R/A; Weight 83.46 kg; hb Height 5 ft. 0 in. ; Pain 8/10; 11:10 BP 127 / 84; Pulse 98; Resp 16; Pulse Ox 100% on R/A; nj1 12:26 BP 109 / 74; Pulse 92; Resp 16; Pulse Ox 99% on R/A; nj1 13:38 BP 108 / 67; Pulse 93; Resp 15; Pulse Ox 100% on R/A; nj1 14:20 BP 107 / 65; Pulse 96; Resp 17; Temp 98.4; Pulse Ox 100% on R/A; nj1 15:20 BP 122 / 75; Pulse 88; Resp 12; Temp 98.5(O); Pulse Ox 100% ; nj1 16:34 BP 124 / 74; Pulse 92; Resp 16; Temp 98(O); Pulse Ox 100% on R/A; nj1 17:35 BP 107 / 64; Pulse 96; Resp 18; Temp 98.5(O); Pulse Ox 100% on R/A; nj1 18:30 BP 120 / 83; Pulse 102; Resp 22; Temp 98.7; Pulse Ox 100% on R/A; nj1 10:33 Body Mass Index 35.93 (83.46 kg, 152.4 cm) hb 10:33 Pain Scale: Adult hb MDM: 10:42 Patient medically screened. pm1 10:43 Differential Diagnosis Microcytic anemia, macrocytic anemia. pm1 12:30 Data reviewed: vital signs. pm1 12:30 Care significantly affected by the following chronic conditions: Anemia due to iron pm1 deficiency. Patient requires iron infusions but has not gotten them for about 2-3 years due to insurance issues. She has been taking oral Fe supplementation instead. 13:13 ED course: Left message with Dr Real: plan to transfuse two units PRBCs and discharge pm1 to follow up with PCP or Hematology. 13:23 Management of patient was discussed with the following: Primary Care Provider: Dr gerhard Real. Informed him will update the patient with 2 units PRBCs and discharge to follow up with Hematology, Dr. Soto. Patient is asymptomatic of her anemia. He agrees with the plan of care. 17:56 Counseling: I had a detailed discussion with the patient and/or guardian regarding: the pm1 historical points, exam findings, and any diagnostic results supporting the discharge/admit diagnosis, lab results, the need for outpatient follow up, a family practitioner, Hematology/oncology, to return to the emergency department if symptoms worsen or persist or if there are any questions or concerns that arise at home. 06/08 10:40 Order name: CBC with Diff; Complete Time: 13:11 pm1 06/08 10:40 Order name: BMP; Complete Time: 12:23 pm1 06/08 10:40 Order name: Type And Screen pm1 06/08 12:31 Order name: Bb Add On eb 06/08 12:38 Order name: Packed RBC Leukored EDCT 06/08 13:05 Order name: CBC Smear Scan; Complete Time: 13:11 EDMS 06/08 13:54 Order name: Diet Regular: NOW please; Complete Time: 13:55 ss 06/08 10:40 Order name: IV Saline Lock; Complete Time: 11:42 pm1 06/08 10:43 Order name: Transfuse; Complete Time: 18:47 pm1 Administered Medications: No medications were administered Disposition: 06/09 07:01 Co-signature as Attending Physician, Ye Arroyo MD. rn Disposition Summary: 06/08/22 17:57 Discharge Ordered Location: Home pm1 Problem: new pm1 Symptoms: have improved pm1 Condition: Stable pm1 Diagnosis - Anemia, unspecified pm1 Followup: pm1 - With: Emergency Department - When: As needed - Reason: Worsening of condition Followup: pm1 - With: - When: 2 - 3 days - Reason: Recheck today's complaints, Continuance of care, Re-evaluation by your physician Followup: pm1 - With: - When: 2 - 3 days - Reason: Recheck today's complaints, Continuance of care, Re-evaluation by your physician Discharge Instructions: - Discharge Summary Sheet pm1 - Anemia pm1 - Blood Transfusion, Adult pm1 Forms: - Medication Reconciliation Form pm1 - Thank You Letter pm1 - Antibiotic Education pm1 - Prescription Opioid Use pm1 Signatures: Dispatcher [employer] EDMS Ye Arroyo MD MD rn Thomas Núñez, [employer] APPRENTICE pm1 Jamia Corbett RN RN hb
--- NOTE | 2022-06-23 15:34 | ER ---
Nurse's Notes [facility] Name: Jory Wood Age: 41 yrs Sex: Female : 1980 Arrival Date: 06/08/2022 Time: 10:22 Bed 13 Private MD: Carlos Frey Diagnosis: Anemia, unspecified Presentation: 06/08 10:32 Chief complaint: Sent by Dr. Julian for blood transfusion. Coronavirus screen: At this hb time, the client does not indicate any symptoms associated with coronavirus-19. Ebola Screen: No symptoms or risks identified at this time. Initial Sepsis Screen: Does the patient meet any 2 criteria? No. Patient's initial sepsis screen is negative. Does the patient have a suspected source of infection? No. Patient's initial sepsis screen is negative. Risk Assessment: Do you want to hurt yourself or someone else? Patient reports no desire to harm self or others. Onset of symptoms was June 08, 2022. 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 - Social history:: Smoking status: Patient denies any tobacco usage or history of. Screenin:36 [facility] ED Fall Risk Assessment (Adult) History of falling in the last 3 months, nj1 including since admission No falls in past 3 months (0 pts) Confusion or Disorientation No (0 pts) Intoxicated or Sedated No (0 pts) Impaired Gait No (0 pts) Mobility Assist Device Used No (0 pt) Altered Elimination No (0 pt) Score/Fall Risk Level 0 - 2 = Low Risk Oriented to surroundings, Maintained a safe environment, Educated pt \T\ family on fall prevention, incl call for assistance when getting out of bed, Assessed \T\ reinforced patient's understanding of fall precautions. Abuse screen: Denies threats or abuse. Denies injuries from another. Nutritional screening: No deficits noted. Tuberculosis screening: No symptoms or risk factors identified. Assessment: 11:36 General: Appears in no apparent distress. comfortable, Behavior is calm, cooperative, nj1 appropriate for age, Denies feeling ill. Pain: Denies pain. Neuro: No deficits noted. Level of Consciousness is awake, alert, obeys commands, Oriented to person, place, time, situation. Cardiovascular: No deficits noted. Cardiovascular: Patient's skin is warm and dry. Respiratory: No deficits noted. Respiratory: Airway is patent Respiratory effort is even, unlabored. GI: Patient currently denies nausea. Derm: Skin is pale. Musculoskeletal: Circulation, motion, and sensation intact. Denies. 12:30 Reassessment: Patient appears in no apparent distress at this time. No changes from nj1 previously documented assessment. Patient and/or family updated on plan of care and expected duration. Pain level reassessed. Patient is alert, oriented x 3, equal unlabored respirations, skin warm/dry/pink. 13:00 Reassessment: Truong RN along with preceptor Thais PEREZ in room setting up blood [facility] transfusion line. Refer to Transfusion Record paperwork for vital signs as well as additional information. First unit of PRBC's initiated at 1320. 13:30 Reassessment: Patient appears in no apparent distress at this time. No changes from nj1 previously documented assessment. Patient and/or family updated on plan of care and expected duration. Pain level reassessed. Patient is alert, oriented x 3, equal unlabored respirations, skin warm/dry/pink. 14:20 Reassessment: Patient appears in no apparent distress at this time. No changes from nj1 previously documented assessment. Patient and/or family updated on plan of care and expected duration. Pain level reassessed. Patient is alert, oriented x 3, equal unlabored respirations, skin warm/dry/pink. Blood transfusion monitoring continues, see Transfusion Record. 15:42 Reassessment: Patient appears in no apparent distress at this time. No changes from nj1 previously documented assessment. Patient and/or family updated on plan of care and expected duration. Pain level reassessed. Patient is alert, oriented x 3, equal unlabored respirations, skin warm/dry/pink. First unit of PRBC's completed at this time. See Transfusion Record paperwork. 16:34 Reassessment: Patient appears in no apparent distress at this time. No changes from nj1 previously documented assessment. Patient and/or family updated on plan of care and expected duration. Pain level reassessed. Patient is alert, oriented x 3, equal unlabored respirations, skin warm/dry/pink. Second unit of PRBC's initiated at 1635. Blood transfusion set up checked with Thais PEREZ. See Transfusion Record paperwork. 18:00 Reassessment: Pt up for d/c, currently waiting for transfusion of second unit to be vg1 completed. 18:30 Reassessment: Patient appears in no apparent distress at this time. No changes from nj1 previously documented assessment. Patient and/or family updated on plan of care and expected duration. Pain level reassessed. Patient is alert, oriented x 3, equal unlabored respirations, skin warm/dry/pink. Second unit of PRBC's completed at this time. See Transfusion Record paperwork. Patient states feeling better. Vital Signs: 10:33 BP 135 / 84; Pulse 109; Resp 18; Temp 97.4(TE); Pulse Ox 100% on R/A; Weight 83.46 kg; hb Height 5 ft. 0 in. ; Pain 8/10; 11:10 BP 127 / 84; Pulse 98; Resp 16; Pulse Ox 100% on R/A; nj1 12:26 BP 109 / 74; Pulse 92; Resp 16; Pulse Ox 99% on R/A; nj1 13:38 BP 108 / 67; Pulse 93; Resp 15; Pulse Ox 100% on R/A; nj1 14:20 BP 107 / 65; Pulse 96; Resp 17; Temp 98.4; Pulse Ox 100% on R/A; nj1 15:20 BP 122 / 75; Pulse 88; Resp 12; Temp 98.5(O); Pulse Ox 100% ; nj1 16:34 BP 124 / 74; Pulse 92; Resp 16; Temp 98(O); Pulse Ox 100% on R/A; nj1 17:35 BP 107 / 64; Pulse 96; Resp 18; Temp 98.5(O); Pulse Ox 100% on R/A; nj1 18:30 BP 120 / 83; Pulse 102; Resp 22; Temp 98.7; Pulse Ox 100% on R/A; nj1 10:33 Body Mass Index 35.93 (83.46 kg, 152.4 cm) hb 10:33 Pain Scale: Adult hb ED Course: 10:22 Patient arrived in ED. am2 10:23 Carlos Frey MD is Private Physician. am2 10:23 Thomas Núñez NP is PHCP. pm1 10:23 Ye Arroyo MD is Attending Physician. pm1 10:32 Triage completed. hb 10:32 Arm band placed on. hb 11:04 Thais Claudio RN is Primary Nurse. vg1 11:36 Patient has correct armband on for positive identification. Placed in gown. Bed in low nj1 position. Call light in reach. Side rails up X 1. Client placed on continuous cardiac and pulse oximetry monitoring. NIBP monitoring applied. 11:36 Initial lab(s) drawn, by wy, sent to lab. Inserted saline lock: 20 gauge in right nj1 forearm, using aseptic technique. Blood collected. 11:58 Primary Nurse role handed off by Thais Claudio RN nj1 11:58 Carla Samaniego, ANA is Primary Nurse. nj1 17:57 Carlos Frey MD is Referral Physician. pm1 17:57 Anjelica Fuentes MD is Referral Physician. pm1 18:47 No provider procedures requiring assistance completed. IV discontinued, intact, ss bleeding controlled, No redness/swelling at site. Pressure dressing applied. Administered Medications: No medications were administered Medication: 11:36 VIS not applicable for this client. nj1 Outcome: 17:57 Discharge ordered by . pm1 18:47 Discharged to home ambulatory. ss 18:47 Condition: good 18:47 Discharge instructions given to patient, Instructed on discharge instructions, follow up and referral plans. medication usage, Demonstrated understanding of instructions, follow-up care, medications. 18:50 Patient left the ED. ss Signatures: Cha Pathak RN RN Thomas Núñez NP HEAD CASHIER pm1 Jamia Corbett RN RN Padma Alcantar am2 Thais Claudio, RN RN vg1 Carla Samaniego, ANA RN nj1 Corrections: (The following items were deleted from the chart) 12:58 12:57 Reassessment: Patient appears in no apparent distress at this time. No changes nj1 from previously documented assessment. Patient and/or family updated on plan of care and expected duration. Pain level reassessed. Patient is alert, oriented x 3, equal unlabored respirations, skin warm/dry/pink. nj1 15:06 13:30 BP 108 / 67; Pulse 93bpm; Resp 15bpm; Pulse Ox 100% RA; nj1 nj1
== END 2022-06-08 18:50 | disposition home or self-care (01) ==
LOC: ER 10:08
PROC: 30233N1 Transfusion of Nonautologous Red Blood Cells into Peripheral Vein, Percutaneous Approach (ICD-10-PCS; principal; 2022-06-08)
DX: D64.9 Anemia, unspecified (principal); Z88.5 Allergy status to narcotic agent
CPT/HCPCS: 85025; 80048; 36415; 86900; 86850; 86901; 99283; 36430; P9016 ×2; J7050 ×2

== ENCOUNTER 2022-08-17 12:37 | Emergency (ER) | payer OTHER ==
--- OUTSIDE RECORDS SUMMARY | 2022-08-17 12:41 | XMS REPORT | Continuity of Care Document ---
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 2022-03-01 19:48:29 Test Item Value Reference Range Interpretation Comme nts Cross Match Result (test code = Compatible 4409) ISBT Blood Type Code (test code = 646860) Unit Blood Type (test code = 4410) O Pos Unit Number (test code = 4411) [id number] Blood Expiration Date & Time (test code = 608816) Status Information (test code = Issued 4411) Product Identification (test code = Red Blood Cells 4413) Product Code (test code = 4414) [id number] Performed at [facility] Laboratory Services - [facility] Blood [address] [place] [address]Uawr Free: [phone] No. [id number] [facility] Conf[facility] (Lab Only)2022-03-01 19:31:50 Test Item Value Reference Range Interpretation Comments ABO & RH (test code O Positive Performe d at [facility] = 20) Laboratory [facility] [place], [place] [id number] Free: [phone] A No. [id number] [facility] Screen - ONCE [id number] 19:00:09 Test Item Value Reference Range Interpretation Comments ABO & RH (test code O Positive Performe d at [facility] = 20) Laboratory [facility] [place], [place] [address]Toll Free: [phone] A No. [id number] IAT (test code = Negative Performed a t [facility] 1185) Laboratory [facility] [place], [place] [address]Toll Free: [phone] A No. [id number] [facility] WITH [id number] 18:03:42 Test Item Value Reference Range Interpretation Comments WBC (test code = See_Comment [Automated 1390-2) message] The sy stem which generated this result transmitted reference range : 4.30 - 11.10 10*3/?L. The reference range was not used to interpret this result as normal/abnormal . RBC (test code = See_Comment L [Automated 629-8) message] The sy stem which generated this result transmitted reference range : 3.93 - 5.25 10*6/?L. The reference range was not used to interpret this result as normal/abnormal . HGB (test code = 6.0 g/dL 11.6-15.0 L 718-7) HCT (test code = 21.5 % 35.7-45.2 L 4544-3) MCV (test code = 69.4 fL 80.6-95.5 L 787-2) MCH (test code = 19.4 pg 25.9-32.8 L 785-6) MCHC (test code = 27.9 g/dL 31.6-35.1 L 786-4) RDW-SD (test code = 41.9 fL 39.0-49.9 76775-8) RDW-CV (test code = 16.9 % 12.0-15.5 H 788-0) PLT (test code = See_Comment H [Automated 777-3) message] The sy stem which generated this result transmitted reference range : 166 - 358 10*3/ ?L. The reference r tashi was not used to interpret this result as normal/abnormal . MPV (test code = 10.4 fL 9.5-12.9 75203-3) NRBC/100 WBC (test See_Comment [Automat ed code = 7820894890) message] The system which generated this result transmitted reference range : 0.0 - 10.0 /100 WBCs. The refer ence range was not u sed to interpret th is result as normal/abnormal . NRBC x10^3 (test code See_Comment [Auto mated = 6170129044) message] The s ystem which generated this result transmitted reference range : 10*3/?L. The reference range was not used to interpret this result as normal/abnormal . GRAN MAT (NEUT) % 65.9 % (test code = 770-8) IMM GRAN % (test code 0.60 % = 8329256106) LYMPH % (test code = 23.2 % 736-9) MONO % (test code = 8.4 % 5905-5) EOS % (test code = 1.3 % 713-8) BASO % (test code = 0.6 % 706-2) GRAN MAT x10^3(ANC) 3.55 10*3/uL 1.88-7.09 (test code = 1261784446) IMM GRAN x10^3 (test 0.03 10*3/uL 0.00-0.06 code = 8748827598) LYMPH x10^3 (test code 1.25 10*3/uL 1.32-3.29 L = 731-0) MONO x10^3 (test code 0.45 10*3/uL 0.33-0.92 = 742-7) EOS x10^3 (test code = 0.07 10*3/uL 0.03-0.39 711-2) BASO x10^3 (test code 0.03 10*3/uL 0.01-0.07 = 704-7) ELPIDIO CELLS (test code 2+ See_Comment A [Auto mated = 4690-9) message] The sy stem which generated this result transmitted reference range : (none). The reference range was not used to interpret this result as normal/abnormal . ELLIPTO/OVAL (test 2+ See_Comment A [Automat ed code = 08190-3) message] The system which generated this result transmitted reference range : (none). The reference range was not used to interpret this result as normal/abnormal . POLYCHROMASIA (test 2+ See_Comment [Automa luis code = 41287-1) message] The system which generated this result transmitted reference range : 2+. The referen ce range was not u sed to interpret th is result as normal/abnormal . GIANT PLATELETS (test Present See_Comment A [Auto mated code = 5908-9) message] The system which generated this result transmitted reference range : (none). The reference range was not used to interpret this result as normal/abnormal . Lab Interpretation Abnormal (test code = 33194-3) [facility] (16145)2022-03-01 17:34:25 Test Item Value Reference Range Interpretation Comments NA (test code = 138 mmol/L 135-145 0489329182) K (test code = 4.5 mmol/L 3.5-5.0 0750323128) CL (test code = 106 mmol/L 98-108 8451874618) CO2 TOTAL (test code = 26 mmol/L 23-31 2476098487) AGAP (test code = 2-16 3707265859) BUN (test code = 12 mg/dL 7-23 3495745317) GLUCOSE (test code = 95 mg/dL 70-110 4853227775) CREATININE (test code = 0.66 mg/dL 0.50-1.04 8167591392) TOTAL BILI (test code = 0.6 mg/dL 0.1-1.2 6352634391) CALCIUM (test code = 8.3 mg/dL 8.6-10.6 L 9532104355) T PROTEIN (test code = 7.3 g/dL 6.3-8.2 0001408000) ALBUMIN (test code = 4.3 g/dL 3.5-5.0 6223234368) ALK PHOS (test code = 74 U/L 34-122 1190907671) ALTv (test code = 11 U/L 5-35 1742-6) AST(SGOT) (test code = 37 U/L 13-40 1906662396) eGFR (test code = mL/min/1.73m2 5935435714) MOUNIKA (test code = MOUNIKA) Association of Glomerular Filtration Rate (GFR) and Staging of Kidney Disease* + --+ --+ ------+| GFR (mL/min/1.73 m2) ?| With Kidney Damage ?| ?Without Kidney Damage+ --------+ --------+ +| ?>90 ?| ?Stage one ?| ? Normal ?+ ---+ ---+ -------+| ?60-89 ?| ?Stage two ?| ? Decreased GFR ? + --+ --+ ------+| ?30-59 ?| ?Stage three ?| ? Stage three ? + --+ --+ ------+| ?15-29 ?| ?Stage four ? | ? Stage four ?+ ---+ ---+ -------+| ?<15 (or dialysis) ? ?| ?Stage five ? | ? Stage five ?+ ---+ ---+ -------+ *Each stage assumes the associated GFR level has been in effect for at least three months. ?Stages 1 to 5, with or without kidney disease, indicate chronic kidney disease. Notes: Determination of stages one and two (with eGFR >59mL/min/1.73 m2) requires estimation of kidney damage for at least three months as defined by structural or functional abnormalities of the kidney, manifested by either:Pathological abnormalities or Markers of kidney damage (including abnormalities in the composition of the blood or urine or abnormalities in imaging tests). Lab Interpretation Abnormal (test code = 93423-5) [facility], [id number] 17:31:48 Test Item Value Reference Range Interpretation Comments PREG SERUM (test code Negative = 8376263471) MOUNIKA (test code = MOUNIKA) Less than 10 IU/L. ?If low titer or ectopic is suspected, resubmit specimen in 48-72 hours. [facility]"
[2022-08-17 13:49] LABS: Hematocrit 23.1 % (36.0-45.0); Lymphocytes % 15.9 % (15.3-44.8); MCV 62.3 fL (80-100); MPV 8.2 fL (7.6-11.3)
[2022-08-17 13:52] LABS: Anisocytosis 1+; Blood Morphology Comment NOTED (NOT SEEN); Hypochromasia 2+; Platelet Estimate INCR; White Blood Cell Scan OK (OK)
[2022-08-17 14:07] LABS: Magnesium 2.1 mg/dL (1.6-2.4); Potassium 3.2 mEq/L (3.5-5.1)
--- NOTE | 2022-08-17 14:23 | RAD REPORT ---
[facility] DES[facility] 2:04 pm CLINICAL HISTORY: CHEST PAIN COMPARISON: Chest Single View dated 10/23/2019; CHEST SINGLE VIEW dated 07/30/2012 TECHNIQUE: Portable AP view of the chest. FINDINGS: The lungs are clear. No pneumothorax or effusion. The cardiomediastinal contours are unrem arkable. IMPRESSION: No acute cardiopulmonary process.
--- NOTE | 2022-08-17 14:58 | ER ---
Nurse's Notes [facility] Name: Jory Wood Age: 41 yrs Sex: Female : 1980 Arrival Date: 08/17/2022 Time: 12:37 Bed 4 Private MD: Diagnosis: Anemia, unspecified;Palpitations Presentation: 08/17 12:55 Chief complaint: Patient states: "heart flutters" x 3 days. Stated had blood work done vg1 last week and Hgb was 7.2. Pt stated had allergy testing today as well. Coronavirus screen: Vaccine status: Patient reports receiving the 2nd dose of the covid vaccine. Ebola Screen: Patient negative for fever greater than or equal to 101.5 degrees Fahrenheit, and additional compatible Ebola Virus Disease symptoms Patient denies exposure to infectious person. Patient denies travel to an Ebola-affected area in the 21 days before illness onset. Initial Sepsis Screen: Does the patient meet any 2 criteria? No. Patient's initial sepsis screen is negative. Does the patient have a suspected source of infection? No. Patient's initial sepsis screen is negative. Risk Assessment: Do you want to hurt yourself or someone else? Patient reports no desire to harm self or others. Onset of symptoms was August 17, 2022. 12:55 Method Of Arrival: Ambulatory vg1 12:55 Acuity: ARUN 3 vg1 Triage Assessment: 13:00 General: Appears in no apparent distress. uncomfortable, Behavior is calm, cooperative. vg1 Pain: Complains of pain in chest Pain currently is 2 out of 10 on a pain scale. Quality of pain is described as "tightness". Cardiovascular: Patient's skin is warm and dry. Respiratory: Airway is patent Respiratory effort is even, unlabored. 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 - Social history:: Smoking status: Patient reports the use of cigarette tobacco products, denies chronic smoking, but will smoke occasionally. Screenin:20 [facility] ED Fall Risk Assessment (Adult) History of falling in the last 3 months, bp including since admission No falls in past 3 months (0 pts). Abuse screen: Denies threats or abuse. Denies injuries from another. Nutritional screening: No deficits noted. Tuberculosis screening: No symptoms or risk factors identified. Assessment: 13:20 General: SEE TRIAGE NOTE. bp 14:57 Reassessment: Patient appears in no apparent distress at this time. Patient is alert, bp oriented x 3, equal unlabored respirations, skin warm/dry/pink. Vital Signs: 12:55 BP 116 / 97; Pulse 86; Resp 16; Temp 100.2; Pulse Ox 100% ; Weight 79.38 kg; Height 5 vg1 ft. 0 in. ; Pain 2/10; 14:57 BP 124 / 92; Pulse 67; Resp 15; Pulse Ox 100% ; bp 12:55 Body Mass Index 34.18 (79.38 kg, 152.4 cm) vg1 12:55 Pain Scale: Adult vg1 ED Course: 12:38 Patient arrived in ED. ts1 12:47 Danay Vargas FNP-C is [facility]. kb 12:47 Rio Jay MD is Attending Physician. kb 13:00 Triage completed. vg1 13:00 Arm band placed on. vg1 13:20 Patient has correct armband on for positive identification. Bed in low position. Call bp light in reach. Side rails up X2. 13:20 Initial lab(s) drawn, by me, sent to lab. Inserted saline lock: 22 gauge in right vg1 antecubital area, using aseptic technique. Blood collected. 13:30 Celestino Rivera, RN is Primary Nurse. bp 14:06 XRAY Chest (1 view) In Process Unspecified. EDMS Administered Medications: No medications were administered Outcome: 14:57 Discharge ordered by . kb 15:22 Patient left the ED. bp Signatures: Dispatcher [employer] EDMS Danay Vargas FNP-C FNP-Ckb Peltier, Brian, RN Thais Brown RN RN vg1 Aimee Scanlon PAS PAS ts1
--- NOTE | 2022-08-17 14:58 | EDPHYS ---
Physician Documentation [facility] Name: Jory Wood Age: 41 yrs Sex: Female : 1980 Arrival Date: 08/17/2022 Time: 12:37 Bed 4 Private MD: ED Physician Rio Jay HPI: 08/17 17:20 This 41 yrs old Female presents to ER via Ambulatory with complaints of Anemia.kb 17:20 The patient presents with a history of "fluttering". Context: The symptoms occur at kb rest. Onset: The symptoms/episode began/occurred 3 day(s) ago. Duration: The patient or guardian reports a single episode. Modifying factors: The symptoms are aggravated by nothing. The symptoms are alleviated by nothing. Associated signs and symptoms: The patient has no apparent associated signs or symptoms. Severity of symptoms: At their worst the symptoms were mild in the emergency department the symptoms are unchanged. The patient has experienced similar episodes in the past. The patient has been recently seen by a physician: the patient's primary care provider. Pt reports she has a history of anemia and last week her Hgb was 7.2. States she started having fluttering in her chest 3 days ago, spoke to PCP today and was told to come to the ER to make sure it wasn't her blood count causing the palpitations. Denies chest pain or shortness of breath. . VACATION GUIDE: 13:00 LMP 08/14/2022 vg1 Historical: - Allergies: 13:00 HYDROCODONE; vg1 - Home Meds: 13:00 pantoprazole oral [Active]; vg1 - PMHx: 13:00 Anemia; Acid Reflux; vg1 - PSHx: 13:00 Cholecystectomy; vg1 - Immunization history:: Client reports having NOT received the Covid vaccine. - Social history:: Smoking status: Patient reports the use of cigarette tobacco products, denies chronic smoking, but will smoke occasionally. ROS: 17:18 Constitutional: Negative for fever, chills, and weight loss. kb 17:18 Cardiovascular: Positive for palpitations. 17:18 All other systems are negative. Exam: 17:18 Constitutional: This is a well developed, well nourished patient who is awake, alert, kb and in no acute distress. Head/Face: Normocephalic, atraumatic. ENT: Moist Mucous membranes Cardiovascular: Regular rate and rhythm with a normal S1 and S2. No gallops, murmurs, or rubs. No pulse deficits. Respiratory: Respirations even and unlabored. No increased work of breathing. Talking in full sentences Abdomen/GI: Soft, non-tender. No distention Skin: Warm, dry with normal turgor. Normal color. MS/ Extremity: Pulses equal, no cyanosis. Neurovascular intact. Full, normal range of motion. Neuro: Awake and alert, GCS 15, oriented to person, place, time, and situation. Moves all extremities. Normal gait. Vital Signs: 12:55 BP 116 / 97; Pulse 86; Resp 16; Temp 100.2; Pulse Ox 100% ; Weight 79.38 kg; Height 5 vg1 ft. 0 in. ; Pain 2/10; 14:57 BP 124 / 92; Pulse 67; Resp 15; Pulse Ox 100% ; bp 12:55 Body Mass Index 34.18 (79.38 kg, 152.4 cm) vg1 12:55 Pain Scale: Adult vg1 MDM: 12:47 Patient medically screened. kb 17:20 Data reviewed: vital signs, nurses notes. kb 17:26 Differential diagnosis: arrythmia, dehydration, anemia. Management of patient was kb discussed with the following: dr Jay. Counseling: I had a detailed discussion with the patient and/or guardian regarding: the historical points, exam findings, and any diagnostic results supporting the discharge/admit diagnosis, lab results, radiology results, the need for outpatient follow up, a family practitioner, to return to the emergency department if symptoms worsen or persist or if there are any questions or concerns that arise at home. ED course: Using swnedl-qtaqkknm-qldsdk the pt and I decided not to do a blood transfusion at this time. Pt states 7.1 is actually good for her so she prefers not to have the transfusion at this time. VSS. Pt will return for shortness of breath or any other concerns. . 08/17 12:58 Order name: Basic Metabolic Panel; Complete Time: 14:09 kb 08/17 12:58 Order name: CBC with Diff; Complete Time: 14:09 kb 08/17 12:58 Order name: Magnesium; Complete Time: 14:09 kb 08/17 12:58 Order name: NT PRO-BNP; Complete Time: 14:09 kb 08/17 12:58 Order name: Troponin HS; Complete Time: 14:09 kb 08/17 13:23 Order name: Type And Screen; Complete Time: 14:39 kb 08/17 13:53 Order name: CBC Smear Scan; Complete Time: 14:09 EDMS 08/17 12:58 Order name: XRAY Chest (1 view); Complete Time: 14:27 kb 08/17 12:58 Order name: EKG; Complete Time: 12:59 kb 08/17 12:58 Order name: Cardiac monitoring; Complete Time: 13:32 kb 08/17 12:58 Order name: EKG - Nurse/Tech; Complete Time: 13:20 kb 08/17 12:58 Order name: IV Saline Lock; Complete Time: 13:20 kb 08/17 12:58 Order name: Labs collected and sent; Complete Time: 13:28 kb 08/17 12:58 Order name: O2 Per Protocol; Complete Time: 13:20 kb 08/17 12:58 Order name: O2 Sat Monitoring; Complete Time: 13:20 kb Administered Medications: No medications were administered Disposition: 18:08 Co-signature as Attending Physician, Rio Jay MD I reviewed the patient's care rt provided by the Advanced Practice Provider and agree with the diagnosis and treatment plan. Disposition Summary: 08/17/22 14:57 Discharge Ordered Location: Home kb Condition: Stable kb Diagnosis - Anemia, unspecified kb - Palpitations kb Followup: kb - With: Emergency Department - When: As needed - Reason: Worsening of condition Followup: kb - With: Private Physician - When: 2 - 3 days - Reason: Recheck today's complaints, Continuance of care, Re-evaluation by your physician Discharge Instructions: - Discharge Summary Sheet kb - Anemia kb - Palpitations, Fsja-yc-[id number] kb Forms: - Medication Reconciliation Form kb - Thank You Letter kb - Antibiotic Education kb - Prescription Opioid Use kb Signatures: Dispatcher [employer] Danay Gallardo, PETAR-Kar DAVEY-Thais Julien, RN RN vg1 Rio Jay MD MD rt
[2022-08-17] MEDS ORDERED: POTASSIUM CL SA 10 MEQ TAB PO ONE (15:07)
[2022-08-17 15:26] VITALS: TEMP 100.2; O2SAT 100
[2022-08-17 15:28] VITALS: BP 124/92
--- NOTE | 2022-08-18 13:27 | EKG ---
Test Date: 2022-08-17 Test Time: 13:26:49 Automobile Locator: NIMISHA MEASUREMENT RESULTS: Intervals: Rate: 83 NH: 128 QRSD: 88 QT: 352 QTc: 413 [place]: P: 61 NH: 128 QRS: 61 T: -5 INTERPRETIVE STATEMENTS: Normal sinus rhythm with sinus arrhythmia Cannot rule out Inferior infarct, age undetermined Abnormal ECG Compared to ECG 07/30/2012 16:46:01 Myocardial infarct finding now present Right-axis deviation no longer present Electronically Signed On 08-18-22 13:25:55 CDT by Guilherme Kahn
== END 2022-08-17 15:22 | disposition home or self-care (01) ==
LOC: ER 12:37
DX: D64.9 Anemia, unspecified (principal); F17.210 Nicotine dependence, cigarettes, uncomplicated; Z88.5 Allergy status to narcotic agent
CPT/HCPCS: 36415; 71045; 80048; 83735; 83880; 84484; 85025; 86850; 86900; 86901; 93005; 99283

== ENCOUNTER 2022-09-13 07:20 | Day surgery (SDC) | payer OTHER ==
[2022-09-13 07:39] VITALS: BMI 33.5
[2022-09-13] MEDS ORDERED: SOD FERRIC GLUC COMPLX/SUCROSE 125 MG in NA CHLORIDE 0.9% 100 ML IV ONE (08:00)
[2022-09-13 10:55] VITALS: BP 117/81; TEMP 98.4; O2SAT 100
== END 2022-09-13 09:35 | disposition home or self-care (01) ==
LOC: DS 07:20
PROVIDERS: ATTEND Internal Medicine Gastroenterology
DX: D64.9 Anemia, unspecified (principal)
CPT/HCPCS: J2916

== ENCOUNTER 2022-10-12 08:49 | Emergency (ER) | payer OTHER ==
--- OUTSIDE RECORDS SUMMARY | 2022-10-12 08:53 | XMS REPORT | Continuity of Care Document ---
:1980 Author Organization [facility] t Address [address] [facility] [address] [place] [id number] Care Team Providers Name Role Phone MEGHAN HENRIQUEZ Primary Care Physician Unavailable MEGHAN HENRIQUEZ Attending Clinician Unavailable SEBASTIAN MERCADO Attending Clinician Unavailable Meghan Henriquez MD Attending Clinician Doctor Unassigned, [place] Attending Clinician Unavailable SARAH MOORE Attending Clinician Unavailable Sarah Moore MD Attending Clinician ENZO Attending Clinician Unavailable Lida Ritter Attending Clinician LIDA LEMUS Attending Clinician Unavailable ENZO Admitting Clinician Unavailable Payers Payer Name Policy Type Policy Number Effective Date Expiration Date Roseline WADE [id number] 2021 00:00:00 Problems Condition Condition Condition Status [...] 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, 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, 00 Me dical sequela sequela Branch Seasonal Seasonal Disease Active Unive rs allergies allergies 9-20 ity of 00:00: [place] [facility] Weakness Weakness Disease Active Unive rs of left of left 9-20 ity of side of side of 00:00: [place] body body 00 Medical Branch 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 9-20 it y of 00:00: [place] [facility] Stress at Stress at Disease Active Uni vers home home 9-20 ity of 00:00: [place] [facility] Need for Need for Disease Active Unive rs hepatitis hepatitis 9-20 ity of C C 00:00: [place] screening screening 00 Medi anselmo test test Branch Anxiety Anxiety Disease Active Univers 7-11 ity of 00:00: [place] [facility] Hx of iron Hx of iron Disease Active U nivers deficiency deficiency 7-11 it y of anemia anemia 00:00: [place] [facility] Left upper Left upper Disease Active U nivers quadrant quadrant 7-11 ity of pain pain 00:00: [place] [address] Medical Branch BMI BMI Disease Active Univers 36.0-36.9, 36.0-36.9, 7-11 it y of adult adult 00:00: [place] [facility] Breast Breast Disease Active Univers cancer cancer 7-11 ity of screening screening 00:00: [place] by 00 Medical mammogram mammogram Bran ch Allergies, Adverse Reactions, Alerts Allergy Allergy Status Severity Reaction(s) Onset Inactive Treating Comm ents Source Name Type Date Date Clinician HYDROCOD DRUG Active ITCHING Univers ONE INGREDI 7-11 ity of 00:00: [place] [address] Medical Branch Hydrocod Propensi Active Itching Unive rs one ty to 7-11 ity of adverse 00:00: [place] reaction 00 Medical s Branch Social History Social Habit Start Date Stop Date Quantity Comments Source History of Cigarette Smoker Universi ty of tobacco use [place] [facility] History SDOH University o f Alcohol Frequency [place] [facility] ed[facility] History SDOH University o f Alcohol Std [place] [facility] Drinks Branch History SDNE University o f Alcohol Binge [place] [facility] al [facility] Alcohol intake 2022-04-03 2022-04-03 Current drinker Unive rsity of 00:00:00 00:00:00 of alcohol [place] [facility] (finding) Branch Exposure to 2022-03-21 2022-03-31 Not sure University of SARS-CoV-2 00:00:00 11:40:00 [facility] (event) Branch Tobacco use and 2021-10-10 2021-10-10 Smokeless tobacco Un iversity of exposure 00:00:00 00:00:00 non-user [facility] Alcohol Comment 2021-10-10 2021-10-10 Occasional Universit y of 00:00:00 00:00:00 [facility] Sex [birth year] At [birth year] Universit y of 00:00:00 00:00:00 [facility] Smoking Status Start Date Stop Date Source Smokes tobacco daily 2021-10-10 00:00:00 Univers ity of [facility] Medications Ordered Filled Start Stop Current Ordering Indication Dosage Frequency Signature Comments Components Source Medication Medication Date Date Medication? Clinician (SIG) Name Name pantoprazol Yes [id number] 40mg Take 1 Univers e 40 mg EC 1-19 tablet by ity of tablet 00:00: mouth in [place] 00 the morning. Branch iron 2021-04- No [id number] 200mg Univer s sucrose 2-30 - ity of (VENOFER) 21:30: 22:34 [place] 200 mg in 00 :04 Medical NaCl 0.9% Branch (NS) 100 mL infusion iron 2021-04- No [id number] 200mg Univer s sucrose 2-30 -02 ity of (VENOFER) 21:30: 22:34 [place] 200 mg in 00 :04 Medical NaCl 0.9% Branch (NS) 100 mL infusion cetirizine 2021-04 Yes 10mg Take 10 mg U nivers 10 mg 2-30 by mouth ity of tablet 14:53: in the [place] 23 morning. Medical Branch cetirizine 2021-04 Yes 10mg Take 10 mg U nivers 10 mg 2-30 by mouth ity of tablet 14:53: in the [place] [address] morning. Medical Branch cetirizine 2021-04 Yes 10mg Take 10 mg U nivers 10 mg 2-30 by mouth ity of tablet 14:53: in the [place] [address] morning. Medical Branch cetirizine 2021-04 Yes 10mg Take 10 mg U nivers 10 mg 2-30 by mouth ity of tablet 14:53: in the [place] [address] morning. Medical Branch cetirizine 2021-04 Yes 10mg Take 10 mg U nivers 10 mg 2-30 by mouth ity of tablet 14:53: in the [place] [address] morning. Medical Branch ferrous 2021-04 Yes [id number] 220mg Take 5 mL Univers sulfate 220 2-30 by mouth ity of mg (44 mg 00:00: in the [place] iron)/5 mL 00 morning Medica l solution and 5 mL Branch at noon and 5 mL in the evening. Take with meals. foLIC acid 2021-04 Yes [id number] 1mg Take 1 Univers 1 mg tablet 2-30 tablet by ity of 00:00: mouth in [place] 00 the Medical morning. Branch ascorbic 2021-04 Yes [id number] 500mg Take 1 U nivers acid, 2-30 tablet by ity of vitamin C, 00:00: mouth in [facility] [place] as (VITAMIN C) 00 the Medical 500 mg morning. Branch tablet docusate 2021-04 Yes [id number] 100mg Take 1 Un bibiana (COLACE) 2-30 capsule by ity o f 100 mg 00:00: mouth once [place] capsule 00 daily as Medical needed for Branch Constipati on. ferrous 2021-04 Yes [id number] 220mg Take 5 mL Univers sulfate 220 2-30 by mouth ity of mg (44 mg 00:00: in the [place] iron)/5 mL 00 morning Medica l solution and 5 mL Branch at noon and 5 mL in the evening. Take with meals. foLIC acid 2021-04 Yes [id number] 1mg Take 1 Univers 1 mg tablet 2-30 tablet by ity of 00:00: mouth in [place] 00 the Medical morning. Branch ascorbic 2021-04 Yes [id number] 500mg Take 1 U nivers acid, 2-30 tablet by ity of vitamin C, 00:00: mouth in [facility] [place] as (VITAMIN C) 00 the Medical 500 mg morning. Branch tablet docusate 2021-04 Yes [id number] 100mg Take 1 Un bibiana (COLACE) 2-30 capsule by ity o f 100 mg 00:00: mouth once [place] capsule 00 daily as Medical needed for Branch Constipati on. ferrous 2021-04 Yes [id number] 220mg Take 5 mL Univers sulfate 220 2-30 by mouth ity of mg (44 mg 00:00: in the [place] iron)/5 mL 00 morning Medica l solution and 5 mL Branch at noon and 5 mL in the evening. Take with meals. foLIC acid 2021-04 Yes [id number] 1mg Take 1 Univers 1 mg tablet 2-30 tablet by ity of 00:00: mouth in [place] 00 the Medical morning. Branch ascorbic 2021-04 Yes [id number] 500mg Take 1 U nivers acid, 2-30 tablet by ity of vitamin C, 00:00: mouth in [facility] [place] as (VITAMIN C) 00 the Medical 500 mg morning. Branch tablet docusate 2021-04 Yes [id number] 100mg Take 1 Un bibiana (COLACE) 2-30 capsule by ity o f 100 mg 00:00: mouth once [place] capsule 00 daily as Medical needed for Branch Constipati on. ferrous 2021-04 Yes [id number] 220mg Take 5 mL Univers sulfate 220 2-30 by mouth ity of mg (44 mg 00:00: in the [place] iron)/5 mL 00 morning Medica l solution and 5 mL Branch at noon and 5 mL in the evening. Take with meals. foLIC acid 2021-04 Yes [id number] 1mg Take 1 Univers 1 mg tablet 2-30 tablet by ity of 00:00: mouth in [place] 00 the Medical morning. Branch ascorbic 2021-04 Yes [id number] 500mg Take 1 U nivers acid, 2-30 tablet by ity of vitamin C, 00:00: mouth in [facility] [place] as (VITAMIN C) 00 the Medical 500 mg morning. Branch tablet docusate 2021-04 Yes [id number] 100mg Take 1 Un bibiana (COLACE) 2-30 capsule by ity o f 100 mg 00:00: mouth once [place] capsule 00 daily as Medical needed for Branch Constipati on. ferrous 2021-04 Yes [id number] 220mg Take 5 mL Univers sulfate 220 2-30 by mouth ity of mg (44 mg 00:00: in the [place] iron)/5 mL 00 morning Medica l solution and 5 mL Branch at noon and 5 mL in the evening. Take with meals. foLIC acid 2021-04 Yes [id number] 1mg Take 1 Univers 1 mg tablet 2-30 tablet by ity of 00:00: mouth in [place] 00 the Medical morning. Branch ascorbic 2021-04 Yes [id number] 500mg Take 1 U nivers acid, 2-30 tablet by ity of vitamin C, 00:00: mouth in [facility] [place] as (VITAMIN C) 00 the Medical 500 mg morning. Branch tablet docusate 2021-04 Yes [id number] 100mg Take 1 Un bibiana (COLACE) 2-30 capsule by ity o f 100 mg 00:00: mouth once [place] capsule 00 daily as Medical needed for Branch Constipati on. ferrous 2021-04- No [id number] 325mg Take 1 U nivers sulfate 1-30 03-01 tablet by ity of (IRON) 325 00:00: 05:59 mouth in [place] mg (65 mg 00 :00 the Medical iron) morning Branch tablet and 1 tablet at noon and 1 tablet in the evening. Take with meals. Do all this for 90 days. ferrous 2021-04- No [id number] 325mg Take 1 U nivers sulfate 1-30 12-30 tablet by ity of (IRON) 325 00:00: 00:00 mouth in [place] mg (65 mg 00 :00 the Medical iron) morning Branch tablet and 1 tablet at noon and 1 tablet in the evening. Take with meals. Do all this for 90 days. ferrous 2021-04- No [id number] 325mg Take 1 U nivers sulfate 1-30 12-30 tablet by ity of (IRON) 325 00:00: 00:00 mouth in [place] mg (65 mg 00 :00 the Medical iron) morning Branch tablet and 1 tablet at noon and 1 tablet in the evening. Take with meals. Do all this for 90 days. orlistat Yes [id number] 120mg Take 1 U nivers 120 mg 9-20 capsule by ity of capsule 00:00: mouth in [place] 00 the Medical morning Branch and 1 capsule at noon and 1 capsule in the evening. Take with meals. pantoprazol 2021-0 Yes [id number] 40mg Take 1 Univers e 40 mg EC 9-20 tablet by ity of tablet 00:00: mouth in [place] the Medical morning. Branch escitalopra 0 Yes [id number] 10mg Take 1 Univers m oxalate 9-20 tablet by ity o f (LEXAPRO) 00:00: [place] 10 mg 00 the Medical tablet morning. Branch orlistat 2021-0 Yes [id number] 120mg Take 1 U nivers 120 mg 9-20 capsule by ity of capsule 00:00: mouth in [place] the Medical morning Branch and 1 capsule at noon and 1 capsule in the evening. Take with meals. pantoprazol 2021-0 Yes [id number] 40mg Take 1 Univers e 40 mg EC 9-20 tablet by ity of tablet 00:00: mouth in [place] the Medical morning. Branch escitalopra 0 Yes [id number] 10mg Take 1 Univers m oxalate 9-20 tablet by ity o f (LEXAPRO) 00:00: mouth in [place] 10 mg 00 the Medical tablet morning. Branch orlistat 0 Yes [id number] 120mg Take 1 U nivers 120 mg 9-20 capsule by ity of capsule 00:00: mouth in [place] the Medical morning Branch and 1 capsule at noon and 1 capsule in the evening. Take with meals. pantoprazol 2021-0 Yes [id number] 40mg Take 1 Univers e 40 mg EC 9-20 tablet by ity of tablet 00:00: mouth in [place] the Medical morning. Branch escitalopra 0 Yes [id number] 10mg Take 1 Univers m oxalate 9-20 tablet by ity o f (LEXAPRO) 00:00: mouth [place] 10 mg 00 the Medical tablet morning. Branch orlistat 2021-0 Yes [id number] 120mg Take 1 U nivers 120 mg 9-20 capsule by ity of capsule 00:00: mouth in [place] the Medical morning Branch and 1 capsule at noon and 1 capsule in the evening. Take with meals. pantoprazol 2021-0 Yes [id number] 40mg Take 1 Univers e 40 mg EC 9-20 tablet by ity of tablet 00:00: mouth in [place] the Medical morning. Branch escitalopra 0 Yes [id number] 10mg Take 1 Univers m oxalate 9-20 tablet by ity o f (LEXAPRO) 00:00: mouth [place] 10 mg 00 the Medical tablet morning. Branch orlistat 2021-0 Yes [id number] 120mg Take 1 U nivers 120 mg 9-20 capsule by ity of capsule 00:00: mouth in [place] the Medical morning Branch and 1 capsule at noon and 1 capsule in the evening. Take with meals. pantoprazol 0 Yes [id number] 40mg Take 1 Univers e 40 mg EC 9-20 tablet by ity of tablet 00:00: mouth in [place] the Medical morning. Branch escitalopra 0 Yes [id number] 10mg Take 1 Univers m oxalate 9-20 tablet by ity o f (LEXAPRO) 00:00: mouth in [facility] 10 mg 00 the Medical tablet morning. Branch orlistat 0 Yes [id number] 120mg Take 1 U nivers 120 mg 9-20 capsule by ity of capsule 00:00: mouth in [place] the Medical morning Branch and 1 capsule at noon and 1 capsule in the evening. Take with meals. pantoprazol 2021-0 Yes [id number] 40mg Take 1 Univers e 40 mg EC 9-20 tablet by ity of tablet 00:00: mouth in [place] the Medical morning. Branch escitalopra 2021-0 Yes [id number] 10mg Take 1 Univers m oxalate 9-20 tablet by ity o f (LEXAPRO) 00:00: mouth in [facility] 10 mg 00 the Medical tablet morning. Branch orlistat 0 Yes [id number] 120mg Take 1 U nivers 120 mg 9-20 capsule by ity of capsule 00:00: mouth in [place] the Medical morning Branch and 1 capsule at noon and 1 capsule in the evening. Take with meals. pantoprazol 2021-0 Yes [id number] 40mg Take 1 Univers e 40 mg EC 9-20 tablet by ity of tablet 00:00: mouth in [place] the Medical morning. Branch escitalopra 2021-0 Yes [id number] 10mg Take 1 Univers m oxalate 9-20 tablet by ity o f (LEXAPRO) 00:00: mouth [place] 10 mg 00 the Medical tablet morning. Branch orlistat Yes [id number] 120mg Take 1 U nivers 120 mg 9-20 capsule by ity of capsule 00:00: mouth in [place] 00 the Medical morning Branch and 1 capsule at noon and 1 capsule in the evening. Take with meals. escitalopra Yes [id number] 10mg Take 1 Univers m oxalate 9-20 tablet by ity o f (LEXAPRO) 00:00: [place] in [facility] 10 [facility] 00 the Medical tablet morning. Branch pantoprazol 2022- No [id number] 40mg Take 1 Univers e 40 mg EC 9-20 -19 tablet by ity of tablet 00:00: 00:00 mouth in [place] 00 :00 the Medical morning. Branch escitalopra 2021- No [id number] 10mg Take 1 Univers m oxalate 9-20 09-20 tablet by ity of (LEXAPRO) 00:00: 00:00 mouth in [place] 10 mg 00 :00 the Medical tablet morning. Branch escitalopra 2021- No [id number] 10mg Take 1 Univers m oxalate 9-20 09-20 tablet by ity of (LEXAPRO) 00:00: 00:00 mouth in [place] 10 mg 00 :00 the Medical tablet morning. Branch cetirizine Yes 10mg Take 10 mg U nivers 10 mg 7-11 by mouth ity of tablet 09:26: in the [place] [address] morning. Medical Branch cetirizine Yes 10mg Take 10 mg U nivers 10 mg 7-11 by mouth ity of tablet 09:26: in the [place] [address] morning. Medical Branch cetirizine 0 Yes 10mg Take 10 mg U nivers 10 mg 7-11 by mouth ity of tablet 09:26: in the [place] [address] morning. Medical Branch cetirizine Yes 10mg Take 10 mg U nivers 10 mg 7-11 by mouth ity of tablet 09:26: in the [place] [address] morning. Medical Branch escitalopra Yes [id number] 10mg Take 1 Univers m oxalate 7-11 tablet by ity o f (LEXAPRO) 00:00: [place] 10 mg 00 the Medical tablet morning. Branch escitalopra 2021- No [id number] 10mg Take 1 Univers m oxalate 10-10 tablet by ity of (LEXAPRO) 00:00: 00:00 mouth in [place] 10 mg 00 :00 the Medical tablet morning. Branch escitalopra 2021- No [id number] 10mg Take 1 Univers m oxalate 10-10 tablet by ity of (LEXAPRO) 00:00: 00:00 mouth in [place] 10 mg 00 :00 the Medical tablet morning. Branch busPIRone 2021- No [id number] 10mg Take 1 U nivers 10 mg [...] mouth ity o f tablet 00:00: daily. [place] [facility] meclizine Yes TAKE ONE Univ ers 25 mg 5-10 (1) ity of tablet 00:00: TABLET(S) BY MOUTH Medical THREE Branch TIMES A DAY NEEDED. pantoprazol 2021- No 40mg Take 40 mg Univers e 40 mg EC 5-10 09-20 by mouth ity of tablet 00:00: 00:00 daily. [place] 00 : [facility] pantoprazol 2021- No 40mg Take 40 mg Univers e 40 mg EC 5-10 09-20 by mouth ity of tablet 00:00: 00:00 daily. [place] 00 :00 [facility] Immunizations Ordered Filled Immunization Date Status Comments [facility] e Immunization Name Name SARS-COV-2 COVID-19 2020-05-24 Completed Unive rsity of PFIZER VACCINE 00:00:00 [facility] SARS-COV-2 COVID-19 2020-05-24 Completed Unive rsity of PFIZER VACCINE 00:00:00 [facility] SARS-COV-2 COVID-19 2020-05-24 Completed Unive rsity of PFIZER VACCINE 00:00:00 [facility] SARS-COV-2 COVID-19 2020-05-24 Completed Unive rsity of PFIZER VACCINE 00:00:00 [facility] SARS-COV-2 COVID-19 2020-05-24 Completed Unive rsity of PFIZER VACCINE 00:00:00 [facility] SARS-COV-2 COVID-19 2020-05-24 Completed Unive rsity of PFIZER VACCINE 00:00:00 [facility] SARS-COV-2 COVID-19 2020-05-24 Completed Unive rsity of PFIZER VACCINE 00:00:00 [facility] SARS-COV-2 COVID-19 2020-05-24 Completed Unive rsity of PFIZER VACCINE 00:00:00 [facility] SARS-COV-2 COVID-19 2020-05-24 Completed Unive rsity of PFIZER VACCINE 00:00:00 [facility] Vital Signs Vital Name Observation Time Observation Value Comments Source Systolic blood 2022-03-31 20:52:00 118 mm[Hg] Univer sity of pressure [facility] Diastolic blood 2022-03-31 20:52:00 74 mm[Hg] Unive rsity of pressure [facility] Heart rate 2022-03-31 20:52:00 91 /min Universi ty of [facility] Body temperature 2022-03-31 20:52:00 36.83 Iman Univ ersity of [facility] Branch Respiratory rate 2022-03-31 20:52:00 18 /min Univ ersity of [facility] Body height 2022-03-31 20:52:00 152.4 cm Universi ty of [place] [facility] [place] Body weight 2022-03-31 20:52:00 87.272 kg Universi ty of [place] [facility] BMI 2022-03-31 20:52:00 37.58 kg/m2 Universi ty of [place] [facility] Oxygen saturation in 2022-03-31 20:52:00 100 /min University of Arterial blood by [facility] Pulse oximetry Branch Systolic blood 2022-03-01 22:18:00 136 mm[Hg] Univer sity of pressure [facility] Diastolic blood 2022-03-01 22:18:00 90 mm[Hg] Unive rsity of pressure [facility] Heart rate 2022-03-01 22:18:00 91 /min Universi ty of [place] [facility] Body temperature 2022-03-01 22:18:00 36.78 Iman Univ ersity of [facility] Branch Respiratory rate 2022-03-01 22:18:00 14 /min Univ ersity of [facility] Branch Oxygen saturation in 2022-03-01 22:18:00 99 /min University of Arterial blood by [facility] Pulse oximetry Branch Body height 2022-03-01 16:44:00 152.4 cm Universi ty of [place] [facility] [place] Body weight 2022-03-01 16:44:00 83.462 kg Universi ty of [place] [facility] BMI 2022-03-01 16:44:00 35.94 kg/m2 Universi ty [facility] Systolic blood 2021-12-20 14:56:00 106 mm[Hg] Univer sity of pressure [facility] Diastolic blood 2021-12-20 14:56:00 75 mm[facility]Hg[facility] 2021-12-20 14:56:00 66 /min [facility] Body temperature 2021-12-20 14:56:00 36.17 Iman [facility] rate 2021-12-20 14:56:00 18 /min [facility] Body height 2021-12-20 14:56:00 152.4 cm [facility] Body weight 2021-12-20 14:56:00 85.684 kg [facility] BMI 2021-12-20 14:56:00 36.89 kg/m2 [facility] Oxygen saturation in 2021-12-20 14:56:00 99 /min [facility] Arterial blood by [facility] Pulse oximetry Branch Procedures Procedure Date / Time Performing Clinician Source Performed INSURANCE CORRESPONDENCE 2022-04-04 06:01:00 [facility] [place] [facility] TRANSFUSE PACKED RBC 2022-03-01 20:05:00 Sarah Moore [facility] PREPARE PACKED RBC 2022-03-01 19:48:29 Sarah Moore [facility] ABORH CONFIRMATION (LAB 2022-03-01 19:14:00 Sarah Moore [facility] ONLY) [facility] HB ABO GROUPING 2022-03-01 17:15:00 Sarah Moore [facility] TEST, SERUM 2022-03-01 17:08:00 [facility] COMP. METABOLIC PANEL 2022-03-01 17:08:00 [facility] ([id number]) [facility] CBC WITH DIFF 2022-03-01 17:08:00 Sarah Moore [facility] CONSENT/REFUSAL FOR 2022-03-01 16:37:47 Doctor [place], [facility] DIAGNOSIS AND TREATMENT [place] [facility] Encounters Start End Encounter Admission Attending Care Care Encounter Source Date/Time Date/Time Type Type Clinicians Facility Department ID 2022-08-03 2022-08-03 Outpatient R MARTINEZ [facility] [id number] Univers 15:20:00 15:20:00 MEGHAN rodriguez [facility] 2022-06-20 2022-06-20 Outpatient R JESS [facility] [id number] Univers 08:30:00 08:30:00 SEBASTIAN michael [facility] 2022-04-20 2022-04-20 [facility] 1.2.840.114 [id number] Univers 00:00:00 00:00:00 Meghan ANN [id number] i ty [place] PROF[place] [id number] Nh dicsd NAL [address] [place] [address] 2022-04-18 2022-04-18 [facility] [id number] Univers 00:00:00 00:00:00 Secure Msg Meghan ANN [id number] ity [id number] [id number] Nh dicsd NAL [address] [place] [address] 2022-04-04 2022-04-04 Orders Doctor NELLIE [id number] Univers 00:00:00 00:00:00 Only Unassigned, AIDEE 350.1.13.10 ity of [place] [facility] 4.2.7.2.686 [place] [id number] [address] 2022-03-31 2022-03-31 Outpatient R EUGENIATAPAN [facility] [id number] Univers 15:00:00 15:44:12 MEGHAN rodriguez [facility] 2022-03-31 2022-03-31 [facility] [id number] Univers 15:00:00 15:44:12 Visit Meghan ANN 350.1.13.10 i [place] [id number] Nh dic[address] 2022-03-22 2022-03-22 [id number] Univers 15:20:00 15:20:00 MEGHAN rodriguez [facility] 2022-03-01 2022-03-01 Emergency X [facility] ERT [id number] Univers 10:47:00 16:46:00 SARAH michael [facility] 2022-03-01 2022-03-01 [facility] [id number] Univers 10:47:00 16:46:00 Sarah ANN 350.1.13.10 [facility]y [facility] 4[place] [id number] [address] 2021-12-20 2021-12-20 Outpatient [facility] [id number] Univers 10:00:00 10:54:02 MEGHAN michael [facility] 2021-12-20 2021-12-20 [facility] [id number] [id number] Univers 10:00:00 10:54:02 Visit Meghan ANN 350.1.13.10 i ty [facility] [place] [id number] [address] 2021-10-20 2021-10-20 Outpatient AMBREEN_FAR [facility] 945 [place] 05:23:00 05:23:00 HANA [id number] [facility] 2021-10-20 2021-10-20 Telephone Anita [facility] [id number] Univers 00:00:00 00:00:00 Lida ANN 350.1.13.10 i ty [facility] 4.2.[place] [id number] [address] 2021-10-20 2021-10-20 [facility] 1.2.840.114 [id number] Univers 00:00:00 00:00:00 Lida [facility] 350.1.13.10 it y of [place] 4.2.7.2.686 [place] JOCE?BLEA [id number] Nh martin [address] OFFICE BUILDING 2021-10-20 2021-10-20 [facility] [id number] Univers 00:00:00 00:00:00 Lida [facility] 350.1.13.10 it y of [place] [id number] [place] as JOCE?BLEA [id number] Nh martin [address] OFFICE [facility] 2021-10-19 2021-10-19 Telephone [facility] [id number] Univers 00:00:00 00:00:00 Lida [facility] 350.1.13.10 it y [facility] 4.2.7.2.686 [place] as JOCE?BLEA [id number] [address] [address] OFFICE [facility] 2021-10-10 2021-10-10 [facility] [id number] Univers 09:00:00 10:13:55 Visit Lida [facility] [id number] it y of [facility] [id number] Brandt as JOCE?BLEA [id number] [address] OFFICE [facility] 2021-10-10 2021-10-10 [facility] [id number] [facility] 09:00:00 10:13:55 LIDA rodriguez [facility] Results Test Description Test Time Test Comments Results Result Comments Source Prepare Packed RBC (in units), 1 Units 2022-03-01 19:48:29 Test Item Value Reference Range Interpretation Comme nts Cross Match Result (test code = Compatible 4409) ISBT Blood Type Code (test code = 882234) Unit Blood Type (test code = 4410) O Pos Unit Number (test code = 4411) [id number] Blood Expiration Date & Time (test code = 586250) Status Information (test code = Issued 4411) Product Identification (test code = Red Blood Cells 4413) Product Code (test code = 4414) [id number] Performed at [facility] Laboratory Services - [facility] Blood [address] [place] [address]Touw Free: [phone] 266CLIA No. [id number] [facility] Conf[facility] (Lab Only)2022-03-01 19:31:50 Test Item Value Reference Range Interpretation Comments ABO & RH (test code O Positive Performe d at [facility] = 20) Laboratory [facility] Blood [address] [place], [place] [id number] Free: [phone] A No. [id number] [facility] Screen - ONCE [id number] 19:00:09 Test Item Value Reference Range Interpretation Comments ABO & RH (test code O Positive Performe d at [facility] = 20) Laboratory [facility] [address] [place], [place] [address]Toll Free: [phone] A No. [id number] IAT (test code = Negative Performed a t [facility] 1185) Laboratory [facility] [address] [place], [place] [address]Toll Free: [phone] A No. [id number] [facility] Center[facility] WITH [id number] 18:03:42 Test Item Value Reference Range Interpretation Comments WBC (test code = See_Comment [Automated 4890-2) message] The sy stem which generated this result transmitted reference range : 4.30 - 11.10 10*3/?L. The reference range was not used to interpret this result as normal/abnormal . RBC (test code = See_Comment L [Automated 079-8) message] The sy stem which generated this [...] RDW-SD (test code = 41.9 fL 39.0-49.9 16552-8) RDW-CV (test code = 16.9 % 12.0-15.5 H 788-0) PLT (test code = See_Comment H [Automated 777-3) message] The sy stem which generated this result transmitted reference range : 166 - 358 10*3/ ?L. The reference r tashi was not used to interpret this result as normal/abnormal . MPV (test code = 10.4 fL 9.5-12.9 69812-1) NRBC/100 WBC (test See_Comment [Automat ed code = 3788906434) message] The system which generated this result transmitted reference range : 0.0 - 10.0 /100 WBCs. The refer ence range was not u sed to interpret th is result as normal/abnormal . NRBC x10^3 (test code See_Comment [Auto mated = 6795115636) message] The s ystem which generated this result transmitted reference range : 10*3/?L. The reference range was not used to interpret this result as normal/abnormal . GRAN MAT (NEUT) % 65.9 % (test code = 770-8) IMM GRAN % (test code 0.60 % = 3465451371) LYMPH % (test code = 23.2 % 736-9) MONO % (test code = 8.4 % 5905-5) EOS % (test code = 1.3 % 713-8) BASO % (test code = 0.6 % 706-2) GRAN MAT x10^3(ANC) 3.55 10*3/uL 1.88-7.09 (test code = 1876441259) IMM GRAN x10^3 (test 0.03 10*3/uL 0.00-0.06 code = 0148194584) LYMPH x10^3 (test code 1.25 10*3/uL 1.32-3.29 L = 731-0) MONO x10^3 (test code 0.45 10*3/uL 0.33-0.92 = 742-7) EOS x10^3 (test code = 0.07 10*3/uL 0.03-0.39 711-2) BASO x10^3 (test code 0.03 10*3/uL 0.01-0.07 = 704-7) ELPIDIO CELLS (test code 2+ See_Comment A [Auto mated = 8890-9) message] The sy stem which generated this result transmitted reference range : (none). The reference range was not used to interpret this result as normal/abnormal . ELLIPTO/OVAL (test 2+ See_Comment A [Automat ed code = 57469-9) message] The system which generated this result transmitted reference range : (none). The reference range was not used to interpret this result as normal/abnormal . POLYCHROMASIA (test 2+ See_Comment [Automa luis code = 85427-5) message] The system which generated this result [...] . Lab Interpretation Abnormal (test code = 71309-9) [facility] Center[facility]. METABOLIC PANEL ([id number])2022-03-01 17:34:25 Test Item Value Reference Range Interpretation Comments NA (test code = 138 mmol/L 135-145 7709434294) K (test code = 4.5 mmol/L 3.5-5.0 0994264108) CL (test code = 106 mmol/L 98-108 0381847613) CO2 TOTAL (test code = 26 mmol/L 23-31 5858805936) AGAP (test code = 2-16 3827456592) BUN (test code = 12 mg/dL 7-23 2079013092) GLUCOSE (test code = 95 mg/dL 70-110 6587917588) CREATININE (test code = 0.66 mg/dL 0.50-1.04 1192413680) TOTAL BILI (test code = 0.6 mg/dL 0.1-1.5 1638526359) CALCIUM (test code = 8.3 mg/dL 8.6-10.6 L 2445105020) T PROTEIN (test code = 7.3 g/dL 6.3-8.2 0493799132) ALBUMIN (test code = 4.3 g/dL 3.5-5.0 8128309088) ALK PHOS (test code = 74 U/L 34-122 9843221955) ALTv (test code = 11 U/L 5-35 1742-6) AST(SGOT) (test code = 37 U/L 13-40 5634532556) eGFR (test code = mL/min/1.73m2 7303729157) MOUNIKA (test code = MOUNIKA) Association of [...] tests). Lab Interpretation Abnormal (test code = 73864-7) [facility] BranchP[facility]NC[facility] TEST, [id number] 17:31:48 Test Item Value Reference Range Interpretation Comments PREG SERUM (test code Negative = 7912273062) MOUNIKA (test code = MOUNIKA) Less than 10 IU/L. ?If low titer or ectopic is suspected, resubmit specimen in 48-72 hours. [facility]"
[2022-10-12] MEDS ORDERED: NA CHLORIDE 0.9% 500 ML ONE (09:14)
[2022-10-12 09:23] LABS: Absolute Lymphocytes (CBC) 0.8 K/uL (0.7-4.9); Hematocrit 25.3 % (36.0-45.0); Lymphocytes % 17.3 % (15.3-44.8); MCV 58.8 fL (80-100); MPV 8.5 fL (7.6-11.3)
[2022-10-12 09:50] LABS: Albumin 3.5 g/dL (3.4-5.0); Bilirubin Total 0.3 mg/dL (0.2-1.0); Protein, Total 7.7 g/dL (6.4-8.2); Thyroid Stimulating Hormone 0.733 uIU/mL (0.358-3.740)
[2022-10-12 10:03] LABS: Blood Morphology Comment NOTED (NOT SEEN); Platelet Estimate INCR; White Blood Cell Scan OK (OK)
[2022-10-12 10:04] LABS: Anisocytosis 1+; Hypochromasia 3+
[2022-10-12 10:05] LABS: Ovalocytes 1+
[2022-10-12] MEDS ORDERED: POTASSIUM 25 MEQ EFFERV TAB ONE (10:37)
[2022-10-12 11:36] LABS: Specific Gravity 1.013 (1.005-1.030); Urine Bacteria >50 /HPF (<20); Urine Bilirubin NEGATIVE (Negative); Urine Blood 3+ (Negative); Urine Clarity Extremely Turbid (Clear); Urine Color Yellow (Yellow); Urine Glucose NEGATIVE (Negative); Urine Mucus 2+ /HPF (None Seen); Urine Protein TRACE (Negative); Urine Urobilinogen Normal (Normal); Urine pH 6.5 (5.0-7.0)
--- NOTE | 2022-10-12 11:47 | EDPHYS ---
Physician Documentation [facility] Name: Jory Wood Age: 42 yrs Sex: Female : 1980 Arrival Date: 10/12/2022 Time: 08:49 Bed 20 Private MD: Carlos Frey ED Physician Zee Granados HPI: 10/12 09:38 This 42 yrs old Female presents to ER via Ambulatory with complaints of Flu snw Symptoms, Dizziness, Flank Pain. 09:38 Pt exposed to Influenza, symptoms resolving but states increased dizziness and snw bilateral flank pain.. Onset: The symptoms/episode began/occurred acutely, 1 week(s) ago, and became persistent. Severity of symptoms: At their worst the symptoms were moderate in the emergency department the symptoms are unchanged. The patient has experienced similar episodes in the past. The patient has not recently seen a physician. endoscopy scheduled, pt with menorrhagia hx. Historical: - Allergies: 08:59 HYDROCODONE; ap3 - Home Meds: 08:59 pantoprazole oral [Active]; ap3 - PMHx: 08:59 acid reflux; Anemia; ap3 - PSHx: 08:59 Cholecystectomy; ap3 - Immunization history:: Client reports receiving the 2nd dose of the Covid vaccine. - Social history:: Smoking status: Patient denies any tobacco usage or history of. ROS: 09:36 Eyes: Negative for injury, pain, redness, and discharge, ENT: Negative for injury, snw pain, and discharge, Neck: Negative for injury, pain, and swelling, Cardiovascular: Negative for chest pain, palpitations, and edema, Respiratory: Negative for shortness of breath, cough, wheezing, and pleuritic chest pain, Abdomen/GI: Negative for abdominal pain, nausea, vomiting, diarrhea, and constipation. 09:36 : Negative for injury, bleeding, discharge, and swelling, MS/Extremity: Negative for injury and deformity, Skin: Negative for injury, rash, and discoloration. 09:36 Constitutional: Positive for body aches, malaise, poor PO intake. 09:36 Back: Positive for flank pain, bilaterally. 09:36 Neuro: Positive for dizziness. Exam: 09:34 Head/Face: Normocephalic, atraumatic. Eyes: Pupils equal round and reactive to light, snw extra-ocular motions intact. Lids and lashes normal. Conjunctiva and sclera are non-icteric and not injected. Cornea within normal limits. Periorbital areas with no swelling, redness, or edema. ENT: Nares patent. No nasal discharge, no septal abnormalities noted. Tympanic membranes are normal and external auditory canals are clear. Oropharynx with no redness, swelling, or masses, exudates, or evidence of obstruction, uvula midline. Mucous membranes moist. Neck: Trachea midline, no thyromegaly or masses palpated, and no cervical lymphadenopathy. Supple, full range of motion without nuchal rigidity, or vertebral point tenderness. No Meningismus. Chest/axilla: Normal chest wall appearance and motion. Nontender with no deformity. No lesions are appreciated. Cardiovascular: Regular rate and rhythm with a normal S1 and S2. No gallops, murmurs, or rubs. Normal PMI, no JVD. No pulse deficits. Respiratory: Lungs have equal breath sounds bilaterally, clear to auscultation and percussion. No rales, rhonchi or wheezes noted. No increased work of breathing, no retractions or nasal flaring. Abdomen/GI: Soft, non-tender, with normal bowel sounds. No distension or tympany. No guarding or rebound. No evidence of tenderness throughout. Back: No spinal tenderness. No costovertebral tenderness. Full range of motion. Skin: Warm, dry with normal turgor. Normal color with no rashes, no lesions, and no evidence of cellulitis. MS/ Extremity: Pulses equal, no cyanosis. Neurovascular intact. Full, normal range of motion. 09:34 Constitutional: The patient appears alert, anxious, pale, uncomfortable. 09:34 Neuro: Orientation: is normal, Sensation: is normal, seizure activity, is not displayed by the patient, Abnormal movements: there are no abnormal movements. Vital Signs: 08:57 BP 115 / 84; Pulse 95; Resp 17; Temp 98.4(O); Pulse Ox 100% ; Weight 73.94 kg; Height 5 ap3 ft. 0 in. ; Pain 5/10; 10:35 BP 103 / 76; Pulse 97; Pulse Ox 100% on R/A; ap3 11:56 BP 108 / 85; Pulse 96; Resp 18; Pulse Ox 100% on R/A; mb9 08:57 Body Mass Index 31.83 (73.94 kg, 152.4 cm) ap3 08:57 Pain Scale: Adult ap3 MDM: 09:33 Patient medically screened. snw 10:15 Differential Diagnosis sepsis, flu, anemia. Data reviewed: vital signs, nurses notes, snw lab test result(s). I considered the following discharge prescriptions or medication management in the emergency department Medications were administered in the Emergency Department. See MAR. Counseling: I had a detailed discussion with the patient and/or guardian regarding: the historical points, exam findings, and any diagnostic results supporting the discharge/admit diagnosis, lab results, the need for outpatient follow up, for definitive care, to return to the emergency department if symptoms worsen or persist or if there are any questions or concerns that arise at home. 11:29 Awaiting: urine. snw 11:46 Special discussion: Based on the history and exam findings, there is no indication for snw further emergent testing or inpatient evaluation. I discussed with the patient/guardian the need to see the primary care provider for further evaluation of the symptoms. 10/12 09:03 Order name: TS; Complete Time: 11:45 snw 10/12 09:03 Order name: TSH; Complete Time: 10:19 snw 10/12 09:03 Order name: Flu; Complete Time: 10:19 snw 10/12 09:03 Order name: COVID-19 SARS RT PCR; Complete Time: 10:19 snw 10/12 09:03 Order name: Urine W/Microscopic (UAM); Complete Time: 11:45 snw 10/12 09:03 Order name: CBC with Diff; Complete Time: 10:19 snw 10/12 09:03 Order name: CMP; Complete Time: 10:19 snw 10/12 09:56 Order name: CBC Smear Scan; Complete Time: 10:19 EDMS Administered Medications: 09:06 Drug: NS 0.9% IV 500 ml Volume: 500 ml; Route: IV; Rate: 1 bolus; Site: right ap3 antecubital; 11:27 Follow up: IV Status: Completed infusion ap3 10:34 Drug: Potassium PO Effervescent Tablet 50 mEq Route: PO; ap3 11:27 Follow up: Response: No adverse reaction ap3 11:55 Drug: Rocephin IV 1 grams Route: IV; Rate: calculated rate; Site: right antecubital; ap3 Disposition: 15:37 STAFF ATTESTATION STATEMENT: I was immediately available onsite in the emergency sd2 department for consultation in the care of this patient. I did not see or examine this patient. eZe Granados MD. Disposition Summary: 10/12/22 11:46 Discharge Ordered Location: Home snw Condition: Stable snw Diagnosis - Iron deficiency anemia secondary to blood loss (chronic) snw - Hypokalemia snw - UTI/ Urinary tract infection, site not specified snw Followup: snw - With: Emergency Department - When: As needed - Reason: Worsening of condition Followup: snw - With: Private Physician - When: 1 - 2 days - Reason: Recheck today's complaints, Continuance of care, Re-evaluation by your physician Discharge Instructions: - Discharge Summary Sheet snw - Iron Deficiency Anemia, Adult snw - Dizziness snw - Menorrhagia snw - Upper Respiratory Infection, Adult snw - Urinary Tract Infection, Pediatric snw - Hypokalemia snw Forms: - Medication Reconciliation Form snw - Thank You Letter snw - Antibiotic Education snw - Prescription Opioid Use snw - Patient Portal Instructions snw Prescriptions: - Augmentin 875-125 mg Oral Tablet - take 1 tablet by ORAL route every 12 hours for 10 days; 20 tablet; Refills: 0, snw Product Selection Permitted Signatures: Dispatcher [employer] Concha Guerrier FNP-C ST[employer] NECK LOADER-[place] Padma Ramírez RN RN ap3 Zee Granados MD MD wi2
--- NOTE | 2022-10-12 11:47 | ER ---
Nurse's Notes [facility] Name: Jory Wood Age: 42 yrs Sex: Female : 1980 Arrival Date: 10/12/2022 Time: 08:49 Bed 20 Private MD: Carlos Frey Diagnosis: Iron deficiency anemia secondary to blood loss (chronic);Hypokalemia;UTI/ Urinary tract infection, site not specified Presentation: 10/12 08:57 Chief complaint: Patient states: her tested positive for the flu, and she is ap3 having flu symptoms as well. patient also reports having bilateral "kidney pain" that she rates a 5/10 on the pain scale. Coronavirus screen: Client presents with at least one sign or symptom that may indicate coronavirus-19. Ebola Screen: No symptoms or risks identified at this time. Initial Sepsis Screen: Does the patient meet any 2 criteria? No. Patient's initial sepsis screen is negative. Does the patient have a suspected source of infection? No. Patient's initial sepsis screen is negative. Risk Assessment: Do you want to hurt yourself or someone else? Patient reports no desire to harm self or others. Onset of symptoms was October 11, 2022. 08:57 Method Of Arrival: Ambulatory ap3 08:57 Acuity: ARUN 3 ap3 Triage Assessment: 08:59 General: Appears in no apparent distress. Behavior is calm, cooperative, appropriate ap3 for age. Pain: Complains of pain in low back area Pain currently is 5 out of 10 on a pain scale. Quality of pain is described as crampy. Neuro: Level of Consciousness is awake, alert, obeys commands, Oriented to person, place, time, situation. Cardiovascular: Patient's skin is warm and dry. Respiratory: Airway is patent Respiratory effort is even, unlabored, Respiratory pattern is regular, symmetrical. : Reports pain in right in left flank(s). Historical: - Allergies: 08:59 HYDROCODONE; ap3 - Home Meds: 08:59 pantoprazole oral [Active]; ap3 - PMHx: 08:59 acid reflux; Anemia; ap3 - PSHx: 08:59 Cholecystectomy; ap3 - Immunization history:: Client reports receiving the 2nd dose of the Covid vaccine. - Social history:: Smoking status: Patient denies any tobacco usage or history of. Screenin:00 [facility] ED Fall Risk Assessment (Adult) History of falling in the last 3 months, ap3 including since admission No falls in past 3 months (0 pts). Abuse screen: Denies threats or abuse. Nutritional screening: No deficits noted. Tuberculosis screening: No symptoms or risk factors identified. Assessment: 11:56 Reassessment: No changes from previously documented assessment. Patient and/or family mb9 updated on plan of care and expected duration. Pain level reassessed. Patient is alert, oriented x 3, equal unlabored respirations, skin warm/dry/pink. Vital Signs: 08:57 BP 115 / 84; Pulse 95; Resp 17; Temp 98.4(O); Pulse Ox 100% ; Weight 73.94 kg; Height 5 ap3 ft. 0 in. ; Pain 5/10; 10:35 BP 103 / 76; Pulse 97; Pulse Ox 100% on R/A; ap3 11:56 BP 108 / 85; Pulse 96; Resp 18; Pulse Ox 100% on R/A; mb9 08:57 Body Mass Index 31.83 (73.94 kg, 152.4 cm) ap3 08:57 Pain Scale: Adult ap3 ED Course: 08:50 Patient arrived in ED. am2 08:50 Concha White FNP-C [facility] snw 08:50 Zee Granados MD is Attending Physician. snw 08:50 Carlos Frey MD is Private Physician. am2 08:57 Padma Ramírez, ANA is Primary Nurse. ap3 08:59 Triage completed. ap3 09:00 Arm band placed on right wrist. ap3 09:00 Patient has correct armband on for positive identification. Bed in low position. Call ap3 light in reach. Side rails up X 1. Pulse ox on. NIBP on. 09:07 Provided Education on: medication prior to administration . ap3 09:10 T\\T\\S collected, blood band applied to patient. Inserted saline lock: 22 gauge in right ds4 forearm, using aseptic technique. Blood collected. 09:25 CMP Sent. ds4 09:25 CBC with Diff Sent. ds4 09:25 TSH Sent. ds4 09:25 TS Sent. ds4 11:27 Urine W/Microscopic (UAM) Sent. ap3 11:57 No provider procedures requiring assistance completed. IV discontinued, intact, mb9 bleeding controlled, No redness/swelling at site. Pressure dressing applied. Administered Medications: 09:06 Drug: NS 0.9% IV 500 ml Volume: 500 ml; Route: IV; Rate: 1 bolus; Site: right ap3 antecubital; 11:27 Follow up: IV Status: Completed infusion ap3 10:34 Drug: Potassium PO Effervescent Tablet 50 mEq Route: PO; ap3 11:27 Follow up: Response: No adverse reaction ap3 11:55 Drug: Rocephin IV 1 grams Route: IV; Rate: calculated rate; Site: right antecubital; ap3 Medication: 09:11 VIS not applicable for this client. ap3 Outcome: 11:46 Discharge ordered by . damián 11:57 Discharged to home ambulatory. mb9 11:57 Condition: stable 11:57 Discharge instructions given to patient, Instructed on discharge instructions, follow up and referral plans. Demonstrated understanding of instructions, follow-up care, medications, Prescriptions given X 1. 12:01 Patient left the ED. mb9 Signatures: Concha White, BRASSIERE CUP MOLD CUTTER-C BRASSIERE [employer]UP MOLD CUTTER-[employer] Fernando Ventura ds4 Padma Alcantar am2 Padma Ramírez, RN RN ap3 Elvia Aburto RN RN mb9
[2022-10-12] MEDS ORDERED: CEFTRIAXONE 1000 MG/VIAL ONE (12:01)
[2022-10-12 12:08] VITALS: TEMP 98.4; O2SAT 100
[2022-10-12 12:12] VITALS: BP 108/85
== END 2022-10-12 12:01 | disposition home or self-care (01) ==
LOC: ER 08:49
DX: D50.0 Iron deficiency anemia secondary to blood loss (chronic) (principal); E87.6 Hypokalemia; N39.0 Urinary tract infection, site not specified; Z20.822 Contact with and (suspected) exposure to COVID-19; Z88.5 Allergy status to narcotic agent
CPT/HCPCS: 96361; 85025; 81001; 36415; 86900; 86850; 86901; 84443; 80053; 87635; 87804 ×2; 96374; 99284; J7040; J0696

== ENCOUNTER 2022-10-30 08:15 | Day surgery (SDC) | payer OTHER ==
[2022-10-30] MEDS ORDERED: SOD FERRIC GLUC COMPLX/SUCROSE 250 MG in NA CHLORIDE 0.9% 250 ML IV ONE (09:00)
[2022-10-30 09:08] VITALS: O2SAT 100; BMI 32.2
[2022-10-30 13:32] VITALS: BP 115/75; TEMP 97
== END 2022-10-30 11:05 | disposition home or self-care (01) ==
LOC: DS 08:15
PROVIDERS: ATTEND Internal Medicine
DX: D50.9 Iron deficiency anemia, unspecified (principal)
CPT/HCPCS: 96365; 96366; J2916; J7050

== ENCOUNTER 2023-01-29 15:50 | Observation (INO) | payer OTHER, SELFPAY ==
--- OUTSIDE RECORDS SUMMARY | 2023-01-29 15:54 | XMS REPORT | Continuity of Care Document ---
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 /min [facility] blood by [facility] Pulse oximetry Branch Procedures Procedure Date / Time Performing Clinician Source Performed INSURANCE CORRESPONDENCE 2022-04-04 06:01:00 [facility] [place]sie [facility] TRANSFUSE PACKED RBC 2022-03-01 20:05:00 Sarah Moore [facility] PREPARE PACKED RBC 2022-03-01 19:48:29 Sarah Moore [facility] ABORH CONFIRMATION (LAB 2022-03-01 19:14:00 Sarah Moore [facility] ONLY) [facility] HB ABO GROUPING 2022-03-01 17:15:00 Sarah Moore [facility] TEST, SERUM 2022-03-01 17:08:00 Sarah Moore [facility] COMP. METABOLIC PANEL 2022-03-01 17:08:00 Sarah Moore [facility] ([id number]) [facility] CBC WITH DIFF 2022-03-01 17:08:00 Sarah Moore [facility] CONSENT/REFUSAL FOR 2022-03-01 16:37:47 Doctor [place], [facility] DIAGNOSIS AND TREATMENT [facility] Encounters Start End Encounter Admission Attending Care Care Encounter Source Date/Time Date/Time Type Type Clinicians Facility Department ID 2022-08-03 2022-08-03 Outpatient R MARTINEZ [facility] [id number] Univers 15:20:00 15:20:00 MEGHAN rodriguez [facility] 2022-06-20 2022-06-20 Outpatient R JESS [facility] [id number] Univers 08:30:00 08:30:00 SEBASTIAN rodriguez [facility] 2022-04-26 2022-04-26 Patient Doctor [facility] 1.2.840.114 [id number] Univers 00:00:00 00:00:00 Secure Msg UnassignedSETH 350.1.13.10 ity [place] [id number] Ok dical NAL 843 [facility] 2022-04-20 2022-04-20 [facility] 1.2.840.114 [id number] Univers 00:00:00 00:00:00 Meghan ANN 350.1.13.10 [place] [id number] Ok dical NAL 044 [facility] 2022-04-18 2022-04-18 Patient Martinez [facility] 1.2.840.114 [id number] Univers 00:00:00 00:00:00 Secure Msg Meghan ANN 350.1.13.10 [place] [id number] Ok dical NAL 044 [facility] 2022-04-07 2022-04-07 Patient Doctor NELLIE 1.2.840.114 [id number] Univers 00:00:00 00:00:00 Secure Msg Unassaugustin AIDEE 350.1.13.10 ity of Elsie [facility] 4.2.7.2.686 [place] as [id number] [address] 2022-04-04 2022-04-04 Orders Doctor NELLIE 1.2.840.114 [id number] Univers 00:00:00 00:00:00 Only Unassigned, AIDEE 350.1.13.10 ity of Elsie [facility] 4.2.7.2.686 [place] as [id number] [facility] 009 [place] 2022-03-31 2022-03-31 Outpatient R MARTINEZ [facility] [id number] Univers 15:00:00 15:44:12 MEGHAN rodriguez [facility] 2022-03-31 2022-03-31 Office [facility] 1.2.840.114 [id number] Univers 15:00:00 15:44:12 Visit Meghan ANN 350.1.13.10 [place] [id number] Ok dical NAL 044 [facility] 2022-03-22 2022-03-22 [id number] Univers 15:20:00 15:20:00 MEGHAN roslyn [facility] 2022-03-01 2022-03-01 Emergency [facility] ERT [id number] Univers 10:47:00 16:46:00 SARAH [facility] 2022-03-01 2022-03-01 Emergency [facility] [id number] Univers 10:47:00 16:46:00 Sarah ANN 350.1.13.10 [place] [id number] [facility] 084 [place] 2022-03-01 2022-03-01 Patient Doctor NELLIE 1.2.840.114 [id number] Univers 00:00:00 00:00:00 Secure Msg Unassigned, AIDEE 350.1.13.10 ity of Elsie HOSPITAL 4.2.7.2.686 [place] as [id number] [facility] 019 [place] 2022-01-05 2022-01-05 Patient Doctor NELLIE 1.2.840.114 [id number] Univers 00:00:00 00:00:00 Secure Msg Unassigned, AIDEE 350.1.13.10 ity of Elsie HOSPITAL 4.2.7.2.686 [place] as [phone] [facility] 019 [place] 2021-12-202021-12-20 Outpatient R MARTINEZ [facility] [id number] Univers 10:00:00 10:54:02 MEGHAN rodriguez of [facility] 2021-12-20 2021-12-20 Office [facility]ann[facility] 1.2.840.114 [id number] Univers 10:00:00 10:54:02 Visit Meghan ANN 350.1.13.10 [place] [id number] [address] 2021-10-20 2021-10-[address] AMBREEN_FAR [facility] 945 [place] 05:23:00 05:23:00 CORI 0721 da [facility] 2021-10-20 2021-10-20 Telephone [facility] [id number] Univers 00:00:00 00:00:00 Lida ANN 350.1.13.10 i [place] [id number] [address] 2021-10-20 2021-10-20 Abstract [facility] 1.2.840.114 [id number] Univers 00:00:00 00:00:00 Lida HEALTH 350.1.13.10 it y of [place] 4.2.7.2.686 [place]t as JOCE?BLEA [id number] [address] 2021-10-20 2021-10-20 Telephone [facility] [id number] Univers 00:00:00 00:00:00 Lida HEALTH 350.1.13.10 it y of [place] 4.2.7.2.686 [place] as JOCE?BLEA [id number] [address] 2021-10-19 2021-10-19 Telephone [facility] [id number] Univers 00:00:00 00:00:00 Lida HEALTH 350.1.13.10 it y of [place] 4.2.7.2.686 [place]t as JOCE?BLEA [id number] [address] MEDICAL OFFICE BUILDING 2021-10-13 2021-10-13 Patient Doctor NELLIE 1.2.840.114 [id number] Univers 00:00:00 00:00:00 Secure Msg Unassigned, AIDEE 350.1.13.10 ity of Elsie [facility] 4.2.7.2.686 [place] as [id number] [address] 2021-10-10 2021-10-10 Office [facility] 1.2.840.114 [id number] Univers 09:00:00 10:13:55 Visit [facility] 350.1.13.10 it y of [place] 4.2.7.2.686 [place] as JOCE?BLEA [id number] [address] OFFICE [facility] 2021-10-10 2021-10-10 [facility] [id number] Univers 09:00:00 10:13:55 LIDA rodriguez of [facility] Results Test Description Test Time Test Comments Results Result Comments Source Prepare Packed RBC (in units), 1 Units 2022-03-01 19:48:29 Test Item Value Reference Range Interpretation Comme nts Cross Match Result (test code = Compatible 9) ISBT Blood Type Code (test code = 720686) Unit Blood Type (test code = 4410) O Pos Unit Number (test code = 4411) [id number] Blood Expiration Date & Time (test code = 886189) Status Information (test code = Issued 4411) Product Identification (test code = Red Blood Cells 4413) Product Code (test code = 4414) [id number] Performed at [facility] Laboratory Services - [facility] [address] [place], [place] [address]Ykog Free: [phone] 266CLIA No. [id number] [facility] Confirmation (Lab Only)2022-03-01 19:31:50 Test Item Value Reference Range Interpretation Comments ABO & RH (test code O Positive Performe d at [facility] = 20) Laboratory Serv [facility] - [facility] Blood Bank[address] [place], [place] [address]Igev Free: [phone] A No. [id number] [facility] HospitalType and Screen - ONCE [id number] 19:00:09 Test Item Value Reference Range Interpretation Comments ABO & RH (test code O Positive Performe d at [facility] = 20) Laboratory Serv [facility] Blood Bank[address] [place] [address]Ncll Free: [phone] A No. [id number] IAT (test code = Negative Performed a t [facility] 1185) Laboratory Serv [facility] Blood Bank[address] [place] [address]Sxft Free: [phone] A No. [id number] [facility] HospitalCBC WITH [id number] 18:03:42 Test Item Value Reference Range Interpretation Comments WBC (test code = See_Comment [Automated 6690-2) message] The sy stem which generated this result transmitted reference range : 4.30 - 11.10 10*3/?L. The reference range was not used to interpret this result as normal/abnormal . RBC (test code = See_Comment L [Automated 789-8) message] The sy stem which generated this [...] RDW-SD (test code = 41.9 fL 39.0-49.9 75880-6) RDW-CV (test code = 16.9 % 12.0-15.5 H 788-0) PLT (test code = See_Comment H [Automated 777-3) message] The sy stem which generated this result transmitted reference range : 166 - 358 10*3/ ?L. The reference r tashi was not used to interpret this result as normal/abnormal . MPV (test code = 10.4 fL 9.5-12.9 89380-3) NRBC/100 WBC (test See_Comment [Automat ed code = 1369500192) message] The system which generated this result transmitted reference range : 0.0 - 10.0 /100 WBCs. The refer ence range was not u sed to interpret th is result as normal/abnormal . NRBC x10^3 (test code See_Comment [Auto mated = 8766299100) message] The s ystem which generated this result transmitted reference range : 10*3/?L. The reference range was not used to interpret this result as normal/abnormal . GRAN MAT (NEUT) % 65.9 % (test code = 770-8) IMM GRAN % (test code 0.60 % = 9453640158) LYMPH % (test code = 23.2 % 736-9) MONO % (test code = 8.4 % 5905-5) EOS % (test code = 1.3 % 713-8) BASO % (test code = 0.6 % 706-2) GRAN MAT x10^3(ANC) 3.55 10*3/uL 1.88-7.09 (test code = 3278977587) IMM GRAN x10^3 (test 0.03 10*3/uL 0.00-0.06 code = 1968048348) LYMPH x10^3 (test code 1.25 10*3/uL 1.32-3.29 L = 731-0) MONO x10^3 (test code 0.45 10*3/uL 0.33-0.92 = 742-7) EOS x10^3 (test code = 0.07 10*3/uL 0.03-0.39 711-2) BASO x10^3 (test code 0.03 10*3/uL 0.01-0.07 = 704-7) ELPIDIO CELLS (test code 2+ See_Comment A [Auto mated = 6730-4) message] The sy stem which generated this result transmitted reference range : (none). The reference range was not used to interpret this result as normal/abnormal . ELLIPTO/OVAL (test 2+ See_Comment A [Automat ed code = 44895-0) message] The system which generated this result transmitted reference range : (none). The reference range was not used to interpret this result as normal/abnormal . POLYCHROMASIA (test 2+ See_Comment [Automa luis code = 80535-3) message] The system which generated this result [...] . Lab Interpretation Abnormal (test code = 07444-2) [facility]. METABOLIC PANEL (22243)2022-03-01 17:34:25 Test Item Value Reference Range Interpretation Comments NA (test code = 138 mmol/L 135-145 9898567949) K (test code = 4.5 mmol/L 3.5-5.0 7302177916) CL (test code = 106 mmol/L 98-108 6238543425) CO2 TOTAL (test code = 26 mmol/L 23-31 6110743324) AGAP (test code = 2-16 8670324731) BUN (test code = 12 mg/dL 7-23 5150930769) GLUCOSE (test code = 95 mg/dL 70-110 7727012869) CREATININE (test code = 0.66 mg/dL 0.50-1.04 4459986696) TOTAL BILI (test code = 0.6 mg/dL 0.1-1.7 9806249362) CALCIUM (test code = 8.3 mg/dL 8.6-10.6 L 5352825267) T PROTEIN (test code = 7.3 g/dL 6.3-8.2 6786832587) ALBUMIN (test code = 4.3 g/dL 3.5-5.0 1573737919) ALK PHOS (test code = 74 U/L 34-122 1565947587) ALTv (test code = 11 U/L 5-35 1742-6) AST(SGOT) (test code = 37 U/L 13-40 4046291981) eGFR (test code = mL/min/1.73m2 0530353347) MOUNIKA (test code = MOUNIKA) Association of [...] tests). Lab Interpretation Abnormal (test code = 99529-4) [facility] HospitalPREG[facility]NCY TEST, [id number] 17:31:48 Test Item Value Reference Range Interpretation Comments PREG SERUM (test code Negative = 9218953524) MOUNIKA (test code = MOUNIKA) Less than 10 IU/L. ?If low titer or ectopic is suspected, resubmit specimen in 48-72 hours. [facility]"
--- NOTE | 2023-01-29 16:25 | RAD REPORT ---
EXAM DESCRIPTION: RAD - Chest Single View - 01/29/2023 4:19 pm CLINICAL HISTORY: SOB Chest pain. COMPARISON: <Comparisons> FINDINGS: Portable technique limits examination quality. The lungs are grossly clear. The heart is normal in size. No displaced fractures. IMPRESSION: No acute intrathoracic process suspected.
[2023-01-29 16:55] LABS: Absolute Lymphocytes (CBC) 1.1 K/uL (0.7-4.9); Hematocrit 15.7 % (36.0-45.0); Lymphocytes % 23.4 % (15.3-44.8); MCV 64.6 fL (80-100); MPV 6.8 fL (7.6-11.3); Platelets 437 thou/uL (152-406); Protime INR 1.17; RBC Red Blood Cell Count 2.43 M/uL (3.86-4.86)
[2023-01-29 17:07] LABS: Specific Gravity > 1.030 (1.005-1.030); Urine Bacteria <20 /HPF (<20); Urine Bilirubin NEGATIVE (Negative); Urine Blood 2+ (Negative); Urine Clarity Extremely Turbid (Clear); Urine Color Yellow (Yellow); Urine Crystals Unidentified Few /HPF (None Seen); Urine Glucose TRACE (Negative); Urine Mucus 4+ /HPF (None Seen); Urine Protein 1+ (Negative); Urine Urobilinogen 1+ (Normal); Urine pH 5.5 (5.0-7.0)
[2023-01-29 17:15] LABS: ALT/SGPT 11 U/L (13-56); AST/SGOT 10 U/L (15-37); Albumin 3.2 g/dL (3.4-5.0); Alkaline Phosphatase 77 U/L (45-117); BUN Blood Urea Nitrogen 13 mg/dL (7-18); Bicarbonate 27 mEq/L (21-32); Bilirubin Direct < 0.1 mg/dL (0-0.2); Bilirubin Indirect, Calculated ND mg/dL (0.2-0.8); Bilirubin Total 0.2 mg/dL (0.2-1.0); Ferritin 2.2 ng/mL (8-388); Glomerular Filtration Rate 106 ml/min (=/>90); Glucose Level 103 mg/dL (74-106); Iron < 10.0 ug/dL (50-170); NT PRO-BNP 78 pg/mL (<125); Potassium 3.1 mEq/L (3.5-5.1); Protein, Total 6.8 g/dL (6.4-8.2); Sodium Level 137 mEq/L (136-145); Transferrin 334 mg/dL (200-360); Troponin High Sensitivity 4.9 pg/mL (<58.9)
--- NOTE | 2023-01-29 17:42 | EDPHYS ---
Physician Documentation [facility] Name: Jory Wood Age: 42 yrs Sex: Female : 1980 Arrival Date: 01/29/2023 Time: 15:50 Bed 15 Private MD: ED Physician Elias Arellano HPI: 01/29 16:22 This 42 yrs old Female presents to ER via Ambulatory with complaints of cp Weakness, Dizziness, Shortness Of Breath. 16:22 The patient has shortness of breath with light activity. cp 16:22 Onset: The symptoms/episode began/occurred last week. Duration: The symptoms are cp continuous, and are steadily getting worse. 16:22 The patient presents with dizziness, generalized weakness, lightheadedness. cp 16:22 Associated signs and symptoms: Pertinent positives: shortness of breath. Patient's cp baseline: Neuro: alert and fully oriented, Motor: no deficits, Ambulation: walks without assistance, Speech: normal. The patient has experienced similar episodes in the past, several times, today's symptoms are similar, to when the patient was apparently diagnosed with anemia. 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 - Social history:: Smoking status: Patient denies any tobacco usage or history of. ROS: 16:30 Constitutional: Negative for body aches, chills, fever, poor PO intake, cp 16:30 Cardiovascular: Negative for chest pain, edema, palpitations, cp 16:30 Respiratory: Positive for shortness of breath, on exertion. Negative for cough, wheezing, 16:30 Abdomen/GI: Negative for abdominal pain, vomiting, diarrhea, constipation, black/tarry stool, rectal bleeding, 16:30 Back: Negative for pain at rest, pain with movement, 16:30 : Negative for urinary symptoms, vaginal bleeding, vaginal discharge, 16:30 Skin: Negative for cellulitis, rash, 16:30 Neuro: Positive for dizziness, weakness, Negative for altered mental status, headache, numbness, syncope, near syncope, 16:30 All other systems are negative, Exam: 16:28 ECG was reviewed by the Attending Physician. cp 16:33 Constitutional: The patient appears in no acute distress, alert, awake, cp non-diaphoretic, non-toxic, well developed, well nourished, 16:33 Head/Face: Normocephalic, atraumatic. cp 16:33 Eyes: Periorbital structures: appear normal, Pupils: equal, round, and reactive to light and accomodation, Extraocular movements: intact throughout, Conjunctiva: normal, no exudate, no injection, Sclera: no appreciated abnormality, Lids and lashes: appear normal, bilaterally, 16:33 ENT: External ear(s): are unremarkable, Nose: is normal, Mouth: Lips: moist, Oral mucosa: pink and intact, moist, Posterior pharynx: is normal, airway is patent, no erythema, no exudate, 16:33 Neck: ROM/movement: is normal, is supple, without pain, no range of motions limitations, no meningismus, no nuchal rigidity, 16:33 Chest/axilla: Inspection: normal, Palpation: is normal, no crepitus, no tenderness, 16:33 Cardiovascular: Rate: normal, Rhythm: regular, Edema: is not appreciated, JVD: is not appreciated, 16:33 Respiratory: the patient does not display signs of respiratory distress, Respirations: normal, no use of accessory muscles, no retractions, labored breathing, is not present, Breath sounds: are clear throughout, no decreased breath sounds, no stridor, no wheezing, 16:33 Abdomen/GI: Inspection: abdomen appears normal, Bowel sounds: active, all quadrants, Palpation: abdomen is soft and non-tender, in all quadrants, 16:33 Back: pain, is absent, ROM is normal, 16:33 Skin: no rash present. 16:33 Neuro: Orientation: to person, place \T\ time. Mentation: is normal, Cerebellar function: is grossly normal, Motor: moves all fours, strength is normal, Sensation: is normal, Vital Signs: 16:02 BP 116 / 84; Pulse 86; Resp 16; Temp 97.9; Pulse Ox 100% ; Weight 75.75 kg; ap3 16:44 BP 103 / 72 Supine; Pulse Ox 100% ; sm8 16:44 BP 100 / 76 Sitting; Pulse Ox 100% ; sm8 16:44 BP 106 / 78; Pulse Ox 100% ; sm8 17:25 BP 120 / 79; Pulse 87; Resp 16; Pulse Ox 100% ; nj1 18:30 BP 110 / 87; Pulse 91; Resp 16; Pulse Ox 100% on R/A; Pain 0/10; nj1 19:50 BP 113 / 87; Pulse 94; Resp 15; Temp 98.5(O); Pulse Ox 100% on R/A; ha1 20:20 BP 115 / 80; Pulse 91; Resp 15 S; Temp 98.3(O); Pulse Ox 100% on R/A; ha1 21:20 BP 107 / 62; Pulse 90; Resp 16 S; Pulse Ox 100% on R/A; ha1 18:30 Pain Scale: Adult nj1 MDM: 16:08 Patient medically screened. cp 17:35 Data reviewed: vital signs, nurses notes, lab test result(s), EKG, radiologic studies, cp plain films, I have discussed the patient's presentation/case with the attending Emergency Department Physician; and as a result, I will admit patient. 17:35 Differential diagnosis: generalized weakness, GI bleed, hypovolemia, idiopathic cp dizziness, , sepsis. Care significantly affected by the following chronic conditions: anemia. Counseling: I had a detailed discussion with the patient and/or guardian regarding the historical points, exam findings, and any diagnostic results supporting the discharge/admit diagnosis, lab results, radiology results, the need for further work-up and treatment in the hospital. 01/29 16:09 Order name: Basic Metabolic Panel; Complete Time: 17:20 cp 01/29 17:20 Interpretation: Normal except: K 3.1; CA 8.2. cp 01/29 16:09 Order name: CBC with Diff; Complete Time: 08:42 cp 01/29 17:13 Interpretation: Normal except: RBC 2.43; HGB 4.9; HCT 15.7; MCV 64.6; MCH 20.1; MCHC cp 31.2; PLT 437; RDW 21.1; MPV 6.8. 01/29 16:09 Order name: LFT's; Complete Time: 17:20 cp 01/29 17:21 Interpretation: Normal except: AST 10; ALT 11; ALB 3.2; GLOB 3.6; A/G 0.9. cp 01/29 16:09 Order name: Magnesium; Complete Time: 17:20 cp 01/29 16:09 Order name: NT PRO-BNP; Complete Time: 17:20 cp 01/29 16:09 Order name: PT-INR; Complete Time: 17:00 cp 01/29 16:09 Order name: Troponin HS; Complete Time: 17:20 cp 01/29 16:09 Order name: Urinalysis W/Microscopic; Complete Time: 17:12 cp 01/29 17:34 Interpretation: Normal except: UCLA Extremely Turbid; Urine SG > 1.030; UGLUC TRACE; cp UKET TRACE; UBLD 2+; UPROT 1+; UUROB 1+; UESTR 250; UWBC 20-50; URBC 11-20; SQEPI 20-50; MUCUS 4+. 01/29 16:09 Order name: PREGU cp 01/29 16:10 Order name: TIBC; Complete Time: 17:20 cp 01/29 16:10 Order name: Ferritin; Complete Time: 17:20 cp 01/29 17:21 Interpretation: Abnormal: BC 2.2. cp 01/29 16:13 Order name: D-Dimer; Complete Time: 17:20 cp 01/29 17:21 Interpretation: Reviewed. cp 01/29 17:20 Order name: Type And Screen cp 01/29 17:21 Order name: Bb Add On bd 01/29 18:38 Order name: Packed RBCs (Additional Unit) EDMS 01/29 19:52 Order name: Basic Metabolic Panel EDMS 01/29 19:52 Order name: Basic Metabolic Panel EDMS 01/29 19:52 Order name: CBC with Automated Diff EDMS 01/29 19:52 Order name: CBC with Automated Diff EDMS 01/29 19:52 Order name: Protime (+INR) EDMS 01/29 19:52 Order name: Protime (+INR) EDMS 01/29 19:52 Order name: PTT, Activated Partial Thromb EDMS 01/29 19:52 Order name: PTT, Activated Partial Thromb EDMS 01/29 21:00 Order name: CBC Smear Scan; Complete Time: 08:42 EDMS 01/29 16:09 Order name: XRAY Chest (1 view); Complete Time: 17:00 cp 01/29 17:01 Interpretation: Report review. cp 01/29 16:09 Order name: EKG; Complete Time: 16:10 cp 01/29 19:52 Order name: EKG Electrocardiogram EDMS 01/29 19:52 Order name: EKG Electrocardiogram EDMS 01/29 19:52 Order name: EKG Electrocardiogram EDMS 01/29 19:52 Order name: EKG Electrocardiogram EDMS 01/29 19:52 Order name: EKG Electrocardiogram EDMS 01/29 19:52 Order name: EKG Electrocardiogram EDMS 01/29 19:52 Order name: EKG Electrocardiogram EDMS 01/29 19:52 Order name: EKG Electrocardiogram EDMS 01/29 19:52 Order name: EKG Electrocardiogram EDMS 01/29 19:52 Order name: EKG Electrocardiogram EDMS 01/29 19:52 Order name: EKG Electrocardiogram EDMS 01/29 16:09 Order name: Orthostatics; Complete Time: 16:46 cp 01/29 16:09 Order name: Cardiac monitoring; Complete Time: 16:46 cp 01/29 16:09 Order name: EKG - Nurse/Tech; Complete Time: 16:46 cp 01/29 16:09 Order name: IV Saline Lock; Complete Time: 16:46 cp 01/29 16:09 Order name: Labs collected and sent; Complete Time: 16:46 cp 01/29 16:09 Order name: O2 Per Protocol; Complete Time: 16:46 cp 01/29 16:09 Order name: O2 Sat Monitoring; Complete Time: 16:46 cp 01/29 18:44 Order name: Transfuse: 1 unit; Complete Time: 20:14 cp EC:28 Rate is 77 beats/min. Rhythm is regular. NC interval is normal. QRS interval is normal. cp QT interval is prolonged at 428 msec. T waves are Inverted in lead aVR. Interpreted by me. Reviewed by me. Administered Medications: 20:15 Drug: Pantoprazole IVP 40 mg IVP once Route: IVP; Site: right antecubital; ha1 21:29 Follow up: Response: No adverse reaction ha1 Disposition Summary: 01/29/23 17:41 Hospitalization Ordered Notes: Hospitalization Status: Observation cp Provider: Calvin Bowen cp Location: Telemetry/MedSurg (observation) cp Condition: Stable cp Problem: chronic cp Symptoms: have improved cp Bed/Room Type: Standard cp Room Assignment: 407(01/29/23 21:08) rv1 Diagnosis - Iron deficiency anemia, unspecified cp Forms: - Medication Reconciliation Form cp - SBAR form cp - Leadership Thank You Letter cp Addendum: 01/31/2023 10:37 I was immediately available for consultation during this patient's visit. I did not e c2 personally see the patient or guide the patient's care.. Signatures: Dispatcher [employer] Ye Astorga MD MD rn Percy Perez PA PA cp Prokisch, Amanda, RN RN ap3 Rach Griffin RN RN ha1 Magdalene Cox rv1 Elias Arellano MD MD ec2 Corrections: (The following items were deleted from the chart) 01/29 21:08 17:41 cp rv1
--- NOTE | 2023-01-29 17:42 | ER ---
Nurse's Notes [facility] Name: Jory Wood Age: 42 yrs Sex: Female : 1980 Arrival Date: 01/29/2023 Time: 15:50 Bed 15 Private MD: Diagnosis: Iron deficiency anemia, unspecified Presentation: 01/29 16:02 Chief complaint: Patient states: she has been feeling weak, and gets short of breath ap3 when walking short distances. patient states that she has required multiple blood transfusions in the past, and she feels like she might be needing one. Coronavirus screen: At this time, the client does not indicate any symptoms associated with coronavirus-19. Ebola Screen: No symptoms or risks identified at this time. Initial Sepsis Screen: Does the patient meet any 2 criteria? No. Patient's initial sepsis screen is negative. Does the patient have a suspected source of infection? No. Patient's initial sepsis screen is negative. Risk Assessment: Do you want to hurt yourself or someone else? Patient reports no desire to harm self or others. Onset of symptoms was January 27, 2023. 16:02 Method Of Arrival: Ambulatory ap3 16:02 Acuity: ARUN 3 ap3 Triage Assessment: 16:04 General: Appears in no apparent distress. Behavior is calm, cooperative, appropriate ap3 for age, Reports fatigue for. Pain: Denies pain. Neuro: Level of Consciousness is awake, alert, obeys commands, Oriented to person, place, time, situation. Neuro: Reports weakness. Cardiovascular: Patient's skin is warm and dry. Respiratory: Reports shortness of breath on exertion Airway is patent Respiratory effort is even, unlabored, Respiratory pattern is regular, symmetrical. 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 - Social history:: Smoking status: Patient denies any tobacco usage or history of. Screenin:[address] [facility] ED Fall Risk Assessment (Adult) History of falling in the last 3 months, ap3 including since admission No falls in past 3 months (0 pts). Abuse screen: Denies threats or abuse. Nutritional screening: No deficits noted. Tuberculosis screening: No symptoms or risk factors identified. Assessment: 16:30 Reassessment: See triage assessment. nj1 18:30 Reassessment: Patient appears in no apparent distress at this time. Patient and/or nj1 family updated on plan of care and expected duration. Pain level reassessed. Patient is alert, oriented x 3, equal unlabored respirations, skin warm/dry/pink. 19:45 General: Appears comfortable, Behavior is calm, cooperative. Pain: Denies pain. Neuro: ha1 Level of Consciousness is awake, alert, obeys commands, Oriented to person, place, time, situation, Reports dizziness, weakness. Cardiovascular: Heart tones S1 S2 present Capillary refill < 3 seconds Patient's skin is warm and dry. Respiratory: Airway is patent Respiratory effort is even, unlabored, Respiratory pattern is regular, symmetrical. GI: Abdomen is flat, non-distended, Bowel sounds present X 4 quads. : Reports heavy periods. Derm: Skin is pink, warm \T\ dry. Musculoskeletal: Circulation, motion, and sensation intact. Range of motion: intact in all extremities. 20:45 Reassessment: Patient and/or family updated on plan of care and expected duration. Pain ha1 level reassessed. Patient is alert, oriented x 3, equal unlabored respirations, skin warm/dry/pink. 21:29 Reassessment: Patient and/or family updated on plan of care and expected duration. Pain ha1 level reassessed. Patient is alert, oriented x 3, equal unlabored respirations, skin warm/dry/pink. Vital Signs: 16:02 BP 116 / 84; Pulse 86; Resp 16; Temp 97.9; Pulse Ox 100% ; Weight 75.75 kg; ap3 16:44 BP 103 / 72 Supine; Pulse Ox 100% ; sm8 16:44 BP 100 / 76 Sitting; Pulse Ox 100% ; sm8 16:44 BP 106 / 78; Pulse Ox 100% ; sm8 17:25 BP 120 / 79; Pulse 87; Resp 16; Pulse Ox 100% ; nj1 18:30 BP 110 / 87; Pulse 91; Resp 16; Pulse Ox 100% on R/A; Pain 0/10; nj1 19:50 BP 113 / 87; Pulse 94; Resp 15; Temp 98.5(O); Pulse Ox 100% on R/A; ha1 20:20 BP 115 / 80; Pulse 91; Resp 15 S; Temp 98.3(O); Pulse Ox 100% on R/A; ha1 21:20 BP 107 / 62; Pulse 90; Resp 16 S; Pulse Ox 100% on R/A; ha1 18:30 Pain Scale: Adult [facility] ED Course: 15:52 Patient arrived in ED. rg4 15:58 Percy Perez PA is PHCP. cp 15:59 Elias Arellano MD is Attending Physician. cp 16:04 Triage completed. ap3 16:05 Arm band placed on right wrist. ap3 16:20 XRAY Chest (1 view) In Process Unspecified. EDMS 16:30 Patient has correct armband on for positive identification. Bed in low position. Call nj1 light in reach. 16:30 Provided Education on: call light, fall precautions. nj1 16:43 Inserted saline lock: 22 gauge in right antecubital area, using aseptic technique. sm8 Blood collected. 17:05 Carla Samaniego, ANA is Primary Nurse. nj1 17:41 Calvin Bwoen MD is Hospitalizing Provider. cp 17:59 Bb Add On Sent. nj1 21:27 Inserted saline lock: 22 gauge in right forearm, using aseptic technique. ha1 21:28 No provider procedures requiring assistance completed. Patient admitted, IV remains in ha1 place. Administered Medications: 20:15 Drug: Pantoprazole IVP 40 mg IVP once Route: IVP; Site: right antecubital; ha1 21:29 Follow up: Response: No adverse reaction ha1 Medication: 21:29 VIS not applicable for this client. ha1 Outcome: 17:41 Decision to Hospitalize by Provider. cp 21:28 Admitted to Tele accompanied by nurse, via wheelchair, room 407, with chart, Report ha1 called to ANA Carrillo 21:29 Condition: stable ha1 21:29 Discharge instructions given to patient, Instructed on the need for admit, Demonstrated understanding of instructions, 21:40 Patient left the ED. ha1 Signatures: Dispatcher [employer] [facility] Percy Perez PA PA cp Garcia, Rubi rg4 Padma Ramírez RN RN ap3 Rach Griffin, RN RN ha1 Carla Samaniego RN RN nj1 Katie Herbert 8 Corrections: (The following items were deleted from the chart) 17:59 17:25 BP 120 / 79; Pulse 87bpm; Pulse Ox 100%; nj1 nj1 22:09 22:08 Patient left the ED. ha1 1
[2023-01-29] MEDS ORDERED: NA CHLORIDE 0.9% 250 ML ONE (19:26)
[2023-01-29] MEDS ORDERED: ONDANSETRON 4 MG/2 ML VIAL IV PRN (19:47)
[2023-01-29] MEDS ORDERED: MORPHINE 2 MG/ML SYR IV PRN (19:47)
[2023-01-29] MEDS ORDERED: ACETAMINOPHEN 500 MG TAB PO PRN (19:47)
--- NOTE | 2023-01-29 19:56 | P.HP ---
Certification for Inpatient Patient admitted to: Observation With expected LOS: <2 Midnights Patient will require the following post-hospital care: None Practitioner: I am a practitioner with admitting privileges, knowledge of patient current condition, hospital course, and medical plan of care. Services: Services provided to patient in accordance with Admission requirements found in Title 42 Section 412.3 of the Code of Federal Regulations Patient History Date of Service: 01/29/23 Reason for admission: Anemia; iron deficiency History of Present Illness: Patient is a 42-year-old female who states she is perimenopausal and presents to the emergency room with severe anemia. She is been symptomatic and becomes short of breath just from ambulating 20 yards. She says she gets fatigued and has been feeling really weak. She has had this chronically. She has had blood transfusion in the past. Her last 1 was in May or July. She also has had iron transfusions in September. Afterwards she had been doing well up until getting short of breath over the last week. It has progressed and she tired all the time. She decided to come into the emergency room for further evaluation. She does not have significant menorrhagia. She said her cycles whenever she has them last for about a day or 2. They used to be heavy but not anymore. She has a significant degree of iron deficiency anemia. I think this is what is exacerbating her anemia. She is probably not absorbing her iron appropriately and her GI tract. She will need to follow-up with gastroenterology at discharge and she will need to get set up with iron transfusions once a month so she does not need blood transfusions going forward. Also check folic acid and B12 levels. At this time, patient will be admitted for observation for blood transfusion. Her hemoglobin is very low. We may need more than 24 hours to treat her current condition. However, if we can get her H&H fixed over the next 24 hours to a hemoglobin greater than 7.0 she should be stable for discharge. Allergies hydrocodone [Hydrocodone] Adverse Reaction (Severe, Verified 11/14/22 12:10) Itching Home Medications: Famotidine 20 mg PO DAILY PRN 09/13/22 Semaglutide [Wegovy] 1.7 mg SQ EVERY 7TH DAY 10/30/22 - Past Medical/Surgical History Diabetic: No -: Hemorrhoid -: gi bleed -: anemia -: esophagitis -: Cholecystectomy -: plastic surgery [facility] from [facility] -: vein surgery from [facility] - Family History Father Medical History: Hypertension, Stroke Notes: dad from stroke in 2009 Mother Notes: No history provided - Social History Alcohol use: No CD- Drugs: No Caffeine use: Yes Review of Systems 10-point ROS is otherwise unremarkable Physical Examination - Vital Signs Temperature: 98 F (Reviewed) - Physical Exam General: Alert, In no apparent distress, Oriented x3 HEENT: Atraumatic, PERRLA, Mucous membr. moist/pink, Other (Conjunctiva pallor), EOMI, Sclerae nonicteric Neck: Supple, 2+ carotid pulse no bruit, No LAD, Without JVD or thyroid abnormality Respiratory: Clear to auscultation bilaterally, Normal air movement Cardiovascular: Regular rate/rhythm, Normal S1 S2, Other (Tachycardic) Gastrointestinal: Normal bowel sounds, Soft and benign, Non-distended, No te nderness Musculoskeletal: No clubbing, No swelling, No tenderness Integumentary: No rashes Neurological: Normal gait, Normal speech, Normal strength at 5/5 x4 extr, Normal tone, Sensation intact, Cranial nerves 3-12 intact, Normal affect Lymphatics: No axilla or inguinal lymphadenopathy - Studies Laboratory Data (last 24 hrs) 01/29/23 01/29/23 01/29/23 16:35 16:35 16:35 WBC 4.70 Hgb 4.9 L* Hct 15.7 L Plt Count 437 H PT 12.9 H INR 1.17 Sodium 137 Potassium 3.1 L BUN 13 Creatinine 0.72 Glucose 103 Magnesium 2.0 Total Bilirubin 0.2 AST 10 L ALT 11 L Alkaline Phosphatase 77 Assessment & Plan - Problems (Diagnosis) (1) Iron deficiency anemia Current Visit: Yes Status: Acute (2) Symptomatic anemia Current Visit: No Status: Acute - Plan Plan: 1. Iron transfusions 2. Unit of packed red blood cells 3. Outpatient hematology follow-up; she needs to get scheduled for iron transfusions monthly 4. We will try iron in liquid form and see if that absorbs better into her GI tract. We will need to monitor her levels closely 5. We will check B12 and folic acid levels 6. She has had GI work-up in the past. Recent EGD and colonoscopy which only revealed hemorrhoid but no other signs of bleeding. She states that her PCP had her stop taking iron tablets because she was getting constipated. However, she does need iron supplements. We will set this up as an outpatient with hematology or have her follow-up with hematology as an outpatient for iron transfusions. At this time, patient will be admitted for observation for iron transfusions. - Advance Directives Does patient have a Living Will: No Does patient have a Durable POA for Healthcare: No
[2023-01-29] MEDS ORDERED: NA CHLORIDE 0.9% 1,000 ML IV SCH (20:00)
[2023-01-29] MEDS ORDERED: NA CHLORIDE 0.9% 250 ML IV SCH (20:00)
[2023-01-29] MEDS ORDERED: PANTOPRAZOLE 40 MG INJ ONE (20:29)
[2023-01-29 20:59] LABS: Anisocytosis 2+; Blood Morphology Comment NOTED (NOT SEEN); Platelet Estimate ADEQ; Poikilocytosis 1+; White Blood Cell Scan OK (OK)
[2023-01-29 22:07] VITALS: BMI 32.5
[2023-01-29 22:24] VITALS: O2SAT 100
[2023-01-29] MEDS ORDERED: NA CHLORIDE 0.9% 50 ML ONE (23:11)
[2023-01-30] MEDS ORDERED: POTASSIUM CL SA 10 MEQ TAB PO ONE (03:19)
--- NOTE | 2023-01-30 07:50 | EKG ---
Test Date: 2023-01-29 Test Time: 16:22:38 Hoistman: ESTEPHANIA MEASUREMENT RESULTS: Intervals: Rate: 77 KS: 128 QRSD: 94 QT: 428 QTc: 484 [place]: P: 68 KS: 128 QRS: 62 T: 47 INTERPRETIVE STATEMENTS: Normal sinus rhythm Nonspecific ST abnormality Prolonged QT Abnormal ECG Compared to ECG 08/17/2022 13:26:49 ST (T wave) deviation now present Prolonged QT interval now present Sinus arrhythmia no longer present Myocardial infarct finding no longer present Electronically Signed On 01-30-23 07:49:29 CDT by Guilherme Kahn
[2023-01-30 08:50] LABS: Absolute Lymphocytes (CBC) 0.9 K/uL (0.7-4.9); Hematocrit 25.4 % (36.0-45.0); Lymphocytes % 15.9 % (15.3-44.8); MCV 72.3 fL (80-100); MPV 6.8 fL (7.6-11.3); Platelets 377 thou/uL (152-406); RBC Red Blood Cell Count 3.51 M/uL (3.86-4.86)
[2023-01-30 08:54] LABS: Protime INR 1.08
[2023-01-30 09:00] LABS: Potassium 3.6 mEq/L (3.5-5.1)
[2023-01-30] MEDS ORDERED: SOD FERRIC GLUC COMPLX/SUCROSE 125 MG in NA CHLORIDE 0.9% 100 ML IV SCH (09:00)
[2023-01-30 09:39] VITALS: TEMP 97.2
[2023-01-30 09:59] LABS: Anisocytosis 3+; Blood Morphology Comment NOTED (NOT SEEN); Platelet Estimate ADEQ; White Blood Cell Scan OK (OK)
[2023-01-30 10:00] LABS: Hypochromasia 2+
[2023-01-30 12:06] LABS: Hematocrit 26.8 % (36.0-45.0)
[2023-01-30 12:14] VITALS: BP 109/73
== END 2023-01-30 12:47 | disposition home or self-care (01) ==
LOC: ER 15:50 → ERHOLD 19:47 → 4TH 21:17
PROVIDERS: ADMIT Hospitalist; ATTEND Hospitalist
PROC: 30233N1 Transfusion of Nonautologous Red Blood Cells into Peripheral Vein, Percutaneous Approach (ICD-10-PCS; principal; 2023-01-29)
DX: D50.9 Iron deficiency anemia, unspecified (principal); Z88.5 Allergy status to narcotic agent; Z90.49 Acquired absence of other specified parts of digestive tract
CPT/HCPCS: 36415; 71045; 80048; 80076; 81001; 82728; 83540; 83735; 83880; 84466; 84484; 85014; 85018; 85025; 85379; 85610; 85730; 86850; 86900; 86901; 86920; 93005; 96374; 99285; C9113; G0378; J2916; J7030; J7050; P9016

== ENCOUNTER 2023-03-04 18:54 | Observation (INO) | payer OTHER ==
--- OUTSIDE RECORDS SUMMARY | 2023-03-04 18:58 | XMS REPORT | Continuity of Care Document ---
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 Unassigned, AIDEE 350.1.13.10 ity of [place] [facility] 4.2.7.2.686 Brandt as [id number] [address] 2021-12-20 2021-12-20 Outpatient R MARTINEZ [facility] [id number] Univers 10:00:00 10:54:02 MEGHAN rodriguez [facility] 2021-12-20 2021-12-20 Office [facility] 1.2.840.114 [id number] Univers 10:00:00 10:54:02 Visit Meghan ANN 350.1.13.10 i ty of [place] [phone] Sc dicut NAL [address] [place] [address] 2021-10-20 2021-10-20 Outpatient [facility] [address] [place] 05:23:00 05:23:00 HANA 0721 [facility] 2021-10-20 2021-10-20 Telephone [facility] [id number] Univers 00:00:00 00:00:00 Lida ANN 350.1.13.10 i ty [place] [id number] Sc dical NAL [address] [place] [address] 2021-10-20 2021-10-20 Abstract Anita [facility] 1.2.840.114 [id number] Univers 00:00:00 00:00:00 Lida [facility] 350.1.13.10 it y of [place] 4.2.7.2.686 Brandt as JOCE?BLEA [id number] Sc dicut KNEY [address] [place] [address] MEDICAL OFFICE BUILDING 2021-10-20 2021-10-20 [facility] 1.2.117.101 [id number] Univers 00:00:00 00:00:00 Lida [facility] 350.1.13.10 it y of [facility] 4.2.7.2.686 Brandt as JOCE?BLEA [phone] [address] MEDICAL OFFICE [facility] 2021-10-19 2021-10-19 Telephone [facility] [id number] Univers 00:00:00 00:00:00 Lida MEDINA 350.1.13.10 it y of [place] 4.2.7.2.686 Brandt as JOCE?BLEA [phone] [address] MEDICAL OFFICE [facility] 2021-10-13 2021-10-13 Patient Doctor NELLIE 1.2.840.114 [id number] Univers 00:00:00 00:00:00 Secure Msg Unassigned, AIDEE 350.1.13.10 ity of [place] [facility] 4.2.7.2.686 Brandt as [id number] [address] 2021-10-10 2021-10-10 Office [facility] 1.2.840.114 [id number] Univers 09:00:00 10:13:55 Visit Lida [facility] 350.1.13.10 it y of [place] 4.2.7.2.686 Brandt as JOCE?BLEA [id number] [address] MEDICAL OFFICE [facility] 2021-10-10 2021-10-10 [facility] [id number] Univers 09:00:00 10:13:55 LIDA rodriguez of [facility] Results Test Description Test Time Test Comments Results Result Comments Source Prepare Packed RBC (in units), 1 Units 2022-03-01 19:48:29 Test Item Value Reference Range Interpretation Comme nts Cross Match Result (test code = Compatible 4408) ISBT Blood Type Code (test code = 144263) Unit Blood Type (test code = 4410) O Pos Unit Number (test code = 4411) [id number] Blood Expiration Date & Time (test code = 928859) Status Information (test code = Issued 4411) Product Identification (test code = Red Blood Cells 4413) Product Code (test code = 4414) [id number] Performed at [facility] Laboratory Services - [facility] Blood [address]Toll Free: [phone] 266CLIA No. [id number] [facility] Confirmation (Lab Only)2022-03-01 19:31:50 Test Item Value Reference Range Interpretation Comments ABO & RH (test code O Positive Performe d at [facility] = 20) Laboratory Serv [facility] Blood Bank1 [address] [address]Toll Free: [phone] A No. [id number] [facility] CenterType and Screen - ONCE [id number] 19:00:09 Test Item Value Reference Range Interpretation Comments ABO & RH (test code O Positive Performe d at [facility] = 20) Laboratory Serv [facility] Blood [facility] [address] [address]Toll Free: [phone] A No. [id number] IAT (test code = Negative Performed a t [facility] 1185) Laboratory [facility] Blood Bank [address] [address]Toll Free: [phone] A No. [id number] [facility] CenterCBC WITH [id number] 18:03:42 Test Item Value Reference Range Interpretation Comments WBC (test code = See_Comment [Automated 1490-2) message] The sy stem which generated this [...] RDW-SD (test code = 41.9 fL 39.0-49.9 57307-6) RDW-CV (test code = 16.9 % 12.0-15.5 H 788-0) PLT (test code = See_Comment H [Automated 777-3) message] The sy stem which generated this result transmitted reference range : 166 - 358 10*3/ ?L. The reference r tashi was not used to interpret this result as normal/abnormal . MPV (test code = 10.4 fL 9.5-12.9 89575-7) NRBC/100 WBC (test See_Comment [Automat ed code = 8559456961) message] The system which generated this result transmitted reference range : 0.0 - 10.0 /100 WBCs. The refer ence range was not u sed to interpret th is result as normal/abnormal . NRBC x10^3 (test code See_Comment [Auto mated = 9838618595) message] The s ystem which generated this result transmitted reference range : 10*3/?L. The reference range was not used to interpret this result as normal/abnormal . GRAN MAT (NEUT) % 65.9 % (test code = 770-8) IMM GRAN % (test code 0.60 % = 2040616505) LYMPH % (test code = 23.2 % 736-9) MONO % (test code = 8.4 % 5905-5) EOS % (test code = 1.3 % 713-8) BASO % (test code = 0.6 % 706-2) GRAN MAT x10^3(ANC) 3.55 10*3/uL 1.88-7.09 (test code = 3533336302) IMM GRAN x10^3 (test 0.03 10*3/uL 0.00-0.06 code = 1870753935) LYMPH x10^3 (test code 1.25 10*3/uL 1.32-3.29 L = 731-0) MONO x10^3 (test code 0.45 10*3/uL 0.33-0.92 = 742-7) EOS x10^3 (test code = 0.07 10*3/uL 0.03-0.39 711-2) BASO x10^3 (test code 0.03 10*3/uL 0.01-0.07 = 704-7) ELPIDIO CELLS (test code 2+ See_Comment A [Auto mated = 7790-9) message] The sy stem which generated this result transmitted reference range : (none). The reference range was not used to interpret this result as normal/abnormal . ELLIPTO/OVAL (test 2+ See_Comment A [Automat ed code = 54150-3) message] The system which generated this result transmitted reference range : (none). The reference range was not used to interpret this result as normal/abnormal . POLYCHROMASIA (test 2+ See_Comment [Automa luis code = 30640-5) message] The system which generated this result [...] . Lab Interpretation Abnormal (test code = 74363-6) [facility] CenterCOMP. METABOLIC PANEL (96034)2022-03-01 17:34:25 Test Item Value Reference Range Interpretation Comments NA (test code = 138 mmol/L 135-145 2590820521) K (test code = 4.5 mmol/L 3.5-5.0 8499642942) CL (test code = 106 mmol/L 98-108 4531198669) CO2 TOTAL (test code = 26 mmol/L 23-31 2481308009) AGAP (test code = 2-16 8299521662) BUN (test code = 12 mg/dL 7-23 8682730455) GLUCOSE (test code = 95 mg/dL 70-110 9552041471) CREATININE (test code = 0.66 mg/dL 0.50-1.04 3648301249) TOTAL BILI (test code = 0.6 mg/dL 0.1-1.7 4770530244) CALCIUM (test code = 8.3 mg/dL 8.6-10.6 L 1159302478) T PROTEIN (test code = 7.3 g/dL 6.3-8.2 4398895781) ALBUMIN (test code = 4.3 g/dL 3.5-5.0 1943836271) ALK PHOS (test code = 74 U/L 34-122 0501290496) ALTv (test code = 11 U/L 5-35 1742-6) AST(SGOT) (test code = 37 U/L 13-40 8553276859) eGFR (test code = mL/min/1.73m2 8324535845) MOUNIKA (test code = MOUNIKA) Association of [...] tests). Lab Interpretation Abnormal (test code = 18169-2) [facility], [id number] 17:31:48 Test Item Value Reference Range Interpretation Comments PREG SERUM (test code Negative = 0804794198) MOUNIKA (test code = MOUNIKA) Less than 10 IU/L. ?If low titer or ectopic is suspected, resubmit specimen in 48-72 hours. [facility]"
[2023-03-04 20:11] LABS: Absolute Lymphocytes (CBC) 1.1 K/uL (0.7-4.9); Hematocrit 14.2 % (36.0-45.0); MCV 63.6 fL (80-100); MPV 6.5 fL (7.6-11.3); Platelets 384 thou/uL (152-406); RBC Red Blood Cell Count 2.24 M/uL (3.86-4.86)
[2023-03-04 20:21] LABS: Potassium 3.4 mEq/L (3.5-5.1)
--- NOTE | 2023-03-04 20:24 | EDPHYS ---
Physician Documentation [facility] Name: Jory Wood Age: 42 yrs Sex: Female : 1980 Arrival Date: 03/04/2023 Time: 18:54 Bed 20 Private MD: ED Physician Niles Ndiaye HPI: 03/04 19:41 This 42 yrs old Female presents to ER via Ambulatory with complaints of ms3 Shortness Of Breath, leg weakness, Dizziness. 19:41 42-year-old female with past medical history of acid reflux, anemia resents to the [facility] emergency department for shortness of breath, generalized weakness, dizziness, "I feel like my blood count is low again.". Patient states she had 2 periods over the last month. Patient denies pain. Patient denies any alleviating or inciting factors. Patient states last months she had 2 pints of blood and an iron transfusion. Patient states she usually has transfusions every 3 to 4 months. Patient denies nausea, vomiting, fevers, chills.. 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 - Social history:: Smoking status: Patient denies any tobacco usage or history of. - Code Status:: Full code. ROS: 19:41 Neck: Negative for injury, pain, and swelling, Cardiovascular: Negative for chest pain, ms3 and palpitations. Abdomen/GI: Negative for abdominal pain, nausea, vomiting, diarrhea, and constipation, 19:41 Constitutional: Positive for Generalized weakness, 19:41 Respiratory: Positive for shortness of breath, 19:41 All other systems are negative, Exam: 19:41 Constitutional: This is a well developed, well nourished patient who is awake, alert, ms3 and in no acute distress. Head/Face: Normocephalic, atraumatic. Neck: Trachea midline, no cervical lymphadenopathy. Supple, full range of motion without nuchal rigidity, or vertebral point tenderness. No Meningismus. Chest/axilla: Normal chest wall appearance and motion. Nontender with no deformity. Cardiovascular: Regular rate and rhythm with a normal S1 and S2. No gallops, murmurs, or rubs. Normal PMI, no JVD. No pulse deficits. 19:41 Respiratory: the patient does not display signs of respiratory distress, Respirations: normal, Breath sounds: are clear throughout, no decreased breath sounds, no rales, rhonchi, no stridor, no wheezing, Vital Signs: 19:38 BP 113 / 73; Pulse 102; Resp 18; Temp 97; Pulse Ox 100% ; Weight 78.02 kg; Height 5 ft. kl 0 in. ; Pain 0/10; 20:50 BP 87 / 78; Pulse 90; Resp 20 S; Pulse Ox 98% on R/A; la4 22:47 BP 108 / 80; Pulse 89; Resp 18; Temp 97.9; Pulse Ox 100% on R/A; Pain 0/10; la4 23:11 BP 103 / 76; Pulse 91; Resp 16; Pulse Ox 100% on R/A; la4 19:38 Body Mass Index 33.59 (78.02 kg, 152.4 cm) kl 19:38 Pain Scale: Adult kl 22:47 Pain Scale: Adult la4 22:47 blood transfusion completed la4 [place] Coma Score: 20:50 Eye Response: spontaneous(4). Motor Response: obeys commands(6). Verbal Response: la4 oriented(5). Total: 15. MDM: 19:19 Patient medically screened. ms3 19:41 Differential diagnosis: Anemia. ms3 20:25 Data reviewed: vital signs, nurses notes, lab test result(s), radiologic studies, and ms3 as a result, I will admit patient. Consideration of Admission/Observation Patient was admitted/placed on observation. Management of patient was discussed with the following: Hospitalist: Dr Arnold. I considered the following discharge prescriptions or medication management in the emergency department Medications were administered in the Emergency Department. See MAR. Counseling: I had a detailed discussion with the patient and/or guardian regarding the historical points, exam findings, and any diagnostic results supporting the discharge/admit diagnosis, lab results, the need for further work-up and treatment in the hospital. ED course: Discussed case with Dr Arnold and he accepts patient as admission. 2 units PRBCs ordered.. 03/04 19:19 Order name: CBC with Diff; Complete Time: 23:34 ms3 03/04 19:19 Order name: BMP; Complete Time: 23:34 ms3 03/04 19:19 Order name: Type And Screen ms3 03/04 20:25 Order name: Bb Add On: 2 units PRBC ms3 03/04 20:31 Order name: Packed RBC Leukored EDMS 03/04 20:53 Order name: CBC Smear Scan; Complete Time: 23:34 EDMS 03/04 21:56 Order name: CBC with Automated Diff EDMS 03/04 21:56 Order name: CBC with Automated Diff EDMS 03/04 21:56 Order name: CBC with Automated Diff EDMS 03/04 21:56 Order name: Comprehensive Metabolic Panel EDMS 03/04 21:56 Order name: Comprehensive Metabolic Panel EDMS 03/04 21:56 Order name: Protime (+INR) EDMS 03/04 21:56 Order name: Protime (+INR) EDMS 03/04 21:56 Order name: PTT, Activated Partial Thromb EDMS 03/04 21:56 Order name: PTT, Activated Partial Thromb EDMS 03/04 21:57 Order name: Retic Count EDMS 03/04 21:57 Order name: Iron EDMS 03/04 21:57 Order name: Vitamin B12 Level EDMS 03/04 22:00 Order name: Abdomen EDMS Administered Medications: No medications were administered Disposition: 20:25 Critical Care:. ms3 Disposition Summary: 03/04/23 20:23 Hospitalization Ordered Notes: Hospitalization Status: Inpatient Admission ms3 Provider: Yanna Arnold ms3 Location: Telemetry/[facility] (Inpatient) ms3 Condition: Stable ms3 Problem: new ms3 Symptoms: are unchanged ms3 Bed/Room Type: Standard ms3 Room Assignment: 408(03/04/23 22:18) cg Diagnosis - Anemia, unspecified ms3 - Shortness of breath ms3 - Muscle weakness (generalized) ms3 Forms: - Medication Reconciliation Form ms3 - SBAR form ms3 - Leadership Thank You Letter ms3 Critical care time excluding procedures: 20:25 Critical care time: Bedside Care: 25 minutes, Consultation: 10 minutes. Total time: 35 ms3 minutes Signatures: Dispatcher [employer] Clotilde Valadez, RN RN Cecille Salcido RN RN Niles Adam DO DO ms3 Lee Dodson RN RN la4 Corrections: (The following items were deleted from the chart) 22:18 20:23 ms3 cg
--- NOTE | 2023-03-04 20:24 | ER ---
Nurse's Notes [facility] Name: Jory Wood Age: 42 yrs Sex: Female : 1980 Arrival Date: 03/04/2023 Time: 18:54 Bed 20 Private MD: Diagnosis: Anemia, unspecified;Shortness of breath;Muscle weakness (generalized) Presentation: 03/04 19:38 Chief complaint: Patient states: weakness and dizziness history of anemia here last kl month received blood unable to follow up. Coronavirus screen: Vaccine status: Patient reports receiving the 2nd dose of the covid vaccine. Ebola Screen: Patient negative for fever greater than or equal to 101.5 degrees Fahrenheit, and additional compatible Ebola Virus Disease symptoms. Initial Sepsis Screen: Does the patient meet any 2 criteria? No. Patient's initial sepsis screen is negative. Does the patient have a suspected source of infection? No. Patient's initial sepsis screen is negative. Risk Assessment: Do you want to hurt yourself or someone else? Patient reports no desire to harm self or others. 19:38 Method Of Arrival: Ambulatory 19:38 Acuity: ARUN 3 kl 23:14 Onset of symptoms was February 06, 2023. la4 Triage Assessment: 19:41 General: Appears in no apparent distress. Behavior is calm, cooperative. Pain: Denies kl pain. Respiratory: Reports shortness of breath on exertion Onset: The symptoms/episode began/occurred gradually, the patient has moderate shortness of breath. Derm: Skin is pale. 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 - Social history:: Smoking status: Patient denies any tobacco usage or history of. - Code Status:: Full code. Screenin:50 [facility] ED Fall Risk Assessment (Adult) History of falling in the last 3 months, la4 including since admission No falls in past 3 months (0 pts) Confusion or Disorientation No (0 pts) Intoxicated or Sedated No (0 pts) Impaired Gait No (0 pts) Mobility Assist Device Used No (0 pt) Altered Elimination No (0 pt) Score/Fall Risk Level 0 - 2 = Low Risk Oriented to surroundings, Provided non-skid footwear, Hourly rounding (assess needs \T\ fall precautionary measures) done. Abuse screen: Denies threats or abuse. Denies injuries from another. Nutritional screening: No deficits noted. Tuberculosis screening: No symptoms or risk factors identified. Assessment: 20:50 General: Appears in no apparent distress. tired . Behavior is calm, cooperative, la4 appropriate for age, Reports fatigue for >3 days. Pain: Denies pain. Neuro: No deficits noted. [place] Agitation-Sedation Scale (RASS): 0 - Alert and Calm Level of Consciousness is awake, alert, obeys commands, Oriented to person, place, time, situation, Appropriate for age Oracle Erp Architect are equal bilaterally Moves all extremities. Cardiovascular: No deficits noted. Denies chest pain, shortness of breath, Heart tones S1 S2 Capillary refill < 3 seconds Patient's skin is warm and dry. pale lips and eyes. Rhythm is regular. Respiratory: No deficits noted. Airway is patent Respiratory effort is even, unlabored, Respiratory pattern is regular, symmetrical, Breath sounds are clear bilaterally. GI: No deficits noted. Abdomen is flat, Bowel sounds present X 4 quads. Vital Signs: 19:38 BP 113 / 73; Pulse 102; Resp 18; Temp 97; Pulse Ox 100% ; Weight 78.02 kg; Height 5 ft. kl 0 in. ; Pain 0/10; 20:50 BP 87 / 78; Pulse 90; Resp 20 S; Pulse Ox 98% on R/A; la4 22:47 BP 108 / 80; Pulse 89; Resp 18; Temp 97.9; Pulse Ox 100% on R/A; Pain 0/10; la4 23:11 BP 103 / 76; Pulse 91; Resp 16; Pulse Ox 100% on R/A; la4 19:38 Body Mass Index 33.59 (78.02 kg, 152.4 cm) kl 19:38 Pain Scale: Adult kl 22:47 Pain Scale: Adult la4 22:47 blood transfusion completed la4 Vitals: 20:50 Cardiac Rhythm Assessment Regular. la4 [place] Coma Score: 20:50 Eye Response: spontaneous(4). Motor Response: obeys commands(6). Verbal Response: la4 oriented(5). Total: 15. ED Course: 18:56 Patient arrived in ED. mr 19:03 Niles Ndiaye DO is Attending Physician. ms3 19:40 Triage completed. kl 19:54 Type And Screen Sent. me1 19:54 BMP Sent. me1 19:54 CBC with Diff Sent. me1 19:54 Inserted saline lock: 20 gauge in right forearm, using aseptic technique. me1 20:23 Yanna Arnold MD is Hospitalizing Provider. ms3 20:48 Lee Dodson RN is Primary Nurse. la4 20:50 Awaiting bed assignment, Awaiting: blood transfusion. la4 20:50 No provider procedures requiring assistance completed. IV is patent, is intact, with la4 good blood return. 20:50 Patient has correct armband on for positive identification. Placed in gown. Bed in low la4 position. Call light in reach. Side rails up X2. Provided Education on: Plan of care. Client placed on continuous cardiac and pulse oximetry monitoring. NIBP monitoring applied. 21:00 Inserted saline lock: 20 gauge in right hand, using aseptic technique. la4 22:42 Abdomen In Process Unspecified. EDMS 22:46 Patient moved back from CT. la4 22:46 Patient admitted, IV remains in place. la4 23:14 Arm band placed on right wrist. Patient placed in an exam room. la4 Administered Medications: No medications were administered Medication: 20:50 VIS not applicable for this client. la4 22:47 Blood products: PRBCs X 1 unit given. See transfusion record transfusion completed and la4 pt tolerated well w/o reaction. No distress noted. Room ready and report to be called. Outcome: 20:23 Decision to Hospitalize by Provider. ms3 23:13 Admitted to Med/surg accompanied by tech, via stretcher, with chart, Report called to la4 Faviola Sullivan RN 23:13 Condition: stable 23:13 Instructed on the need for admit, Demonstrated understanding of plan of care for admission 1204 00:52 Patient left the ED. lg3 Signatures: Dispatcher [employer] EDMS Clotilde Gottlieb RN RN kl Rivera, Mary, Reg Reg Ashley Pillai RN RN lg3 Niles Ndiaye DO DO ms3 Amanda Scott, RN RN me1 Lee Dodson RN RN la4 Corrections: (The following items were deleted from the chart) 03/04 23:08 22:47 BP 108 / 80; Pulse 89bpm; Resp 18bpm; Pulse Ox 100% RA; Temp 97.9F; Pain 0/10, la4 Adult; la4
[2023-03-04 20:53] LABS: Anisocytosis 3+; Blood Morphology Comment NOTED (NOT SEEN); Hypochromasia 2+; Platelet Estimate ADEQ; White Blood Cell Scan OK (OK)
[2023-03-04] MEDS ORDERED: ACETAMINOPHEN 500 MG TAB PO PRN (21:52)
[2023-03-04] MEDS ORDERED: ONDANSETRON 4 MG/2 ML VIAL IV PRN (21:52)
[2023-03-04] MEDS ORDERED: NA CHLORIDE 0.9% 250 ML ONE (21:57)
[2023-03-04] MEDS ORDERED: NA CHLORIDE 0.9% 1,000 ML IV SCH (22:00)
[2023-03-05 00:45] VITALS: BMI 34.7
[2023-03-05 02:10] LABS: Absolute Lymphocytes (CBC) 1.3 K/uL (0.7-4.9); Hematocrit 17.3 % (36.0-45.0); Lymphocytes % 24.3 % (15.3-44.8); MCV 69.7 fL (80-100); MPV 6.9 fL (7.6-11.3); Platelets 301 thou/uL (152-406); RBC Red Blood Cell Count 2.48 M/uL (3.86-4.86)
[2023-03-05 02:15] LABS: Protime INR 1.14
[2023-03-05 02:55] LABS: Albumin 2.9 g/dL (3.4-5.0); Bilirubin Total 0.3 mg/dL (0.2-1.0); Potassium 3.3 mEq/L (3.5-5.1); Protein, Total 6.1 g/dL (6.4-8.2)
[2023-03-05] MEDS ORDERED: NA CHLORIDE 0.9% 250 ML ONE (02:56)
[2023-03-05 04:09] VITALS: O2SAT 98
--- NOTE | 2023-03-05 04:26 | P.HP ---
Certification for Inpatient Patient admitted to: Observation With expected LOS: <2 Midnights Patient will require the following post-hospital care: None Practitioner: I am a practitioner with admitting privileges, knowledge of patient current condition, hospital course, and medical plan of care. Services: Services provided to patient in accordance with Admission requirements found in Title 42 Section 412.3 of the Code of Federal Regulations Patient History Date of Service: 03/04/23 Reason for admission: Anemia History of Present Illness: Patient is a 42-year-old female came to the hospital with severe anemia. Patient has a history of menorrhagia. She states she was given a blood transfusion about a month and a half ago and afterwards she has severe vaginal bleeding. She bled for about 2 weeks. Since that time she is got really weak. She is short of breath on ambulating. She came to the emergency room and she was found to have a hemoglobin of 4.5. She will be admitted to the hospital for 2 units of packed red blood cells. She is going to follow-up with gynecology for evaluation for possible hysterectomy or endometrial ablation. She is asked for the Depo shot which she is taken in the past. Will give this to her and she will follow-up with [facility] in the near future. She states she does not have insurance that covers her doctors appointments that she has a hard time getting the money to go to the appointment but she states she will do what ever is possible. At this time, she will be given 2 units of packed red blood cells and she should be able to go home afterwards. Allergies hydrocodone [Hydrocodone] Adverse Reaction (Severe, Verified 11/14/22 12:10) Itching Home Medications: Cefdinir [Cefdinir*] 300 mg PO BID #14 cap 01/30/23 - Past Medical/Surgical History Diabetic: No -: Hemorrhoid -: gi bleed -: anemia -: esophagitis -: Cholecystectomy -: plastic surgery [facility] -: vein [facility] from [facility] - Family History Father Medical History: Hypertension, Stroke Notes: dad from stroke in 2009 Mother Notes: No history provided - Social History Smoking Status: Never smoker Alcohol use: No CD- Drugs: No Place of Residence: Home Review of Systems 10-point ROS is otherwise unremarkable Physical Examination - Vital Signs Temperature: 97.4 F Blood Pressure: 95/54 Pulse: 78 Respirations: 16 Pulse Ox (%): 100 - Physical Exam General: Alert, In no apparent distress, Oriented x3 HEENT: Atraumatic, PERRLA, Mucous membr. moist/pink, Other (Conjunctival pallor), EOMI, Sclerae nonicteric Neck: Supple, 2+ carotid pulse no bruit, No LAD, Without JVD or thyroid abnormality Respiratory: Clear to auscultation bilaterally, Normal air movement Cardiovascular: Regular rate/rhythm, Normal S1 S2, No murmurs Gastrointestinal: Normal bowel sounds, Soft and benign, Non-distended, No tenderness Musculoskeletal: No tenderness Integumentary: No rashes Neurological: Normal gait, Normal speech, Normal strength at 5/5 x4 extr, Normal tone, Sensation intact, Cranial nerves 3-12 intact, Normal affect Lymphatics: No axilla or inguinal lymphadenopathy - Studies Laboratory Data (last 24 hrs) 03/04/23 03/04/23 03/04/23 21:53 19:51 19:51 WBC Cancelled 6.80 Hgb Cancelled 4.3 L* Hct Cancelled 14.2 L Plt Count Cancelled 384 Sodium 137 Potassium 3.4 L BUN 13 Creatinine 0.84 Glucose 111 H Assessment & Plan - Problems (Diagnosis) (1) Menorrhagia Current Visit: Yes Status: Acute (2) Acute blood loss anemia Current Visit: No Status: Acute - Plan Plan: 1. Patient with menorrhagia and anemia; patient with acute blood loss anemia secondary to heavy vaginal bleeding. Will go ahead and give her a Depo shot. She will get 2 units of packed red blood cells and afterwards she should be able to go home. Patient will follow-up with [facility] for further evaluation. Monitor H&H at discharge at least once a week, until hemoglobin is consistently staying up. Patient will need iron supplementation and we will check a B12 level as well. Patient follows up with Dr. Morley. Discharge Plan: Home Plan to discharge in: 24 Hours - Advance Directives Does patient have a Living Will: No Does patient have a Durable POA for Healthcare: No - Code Status/Comfort Care Code Status Assessed: Yes Code Status: Full Code Critical Care: No Time Spent Managing PTS Care (In Minutes): 40
[2023-03-05] MEDS ORDERED: CYANOCOBALAMIN 1000MCG/ML INJ IM ONE (08:00)
[2023-03-05] MEDS ORDERED: INFLUENZA VACCINE (for 6+ mo) 0.5 ML DOSE IMVAC ONE (08:00)
[2023-03-05] MEDS ORDERED: SOD FERRIC GLUC COMPLX/SUCROSE 125 MG in NA CHLORIDE 0.9% 100 ML IV SCH (09:00)
[2023-03-05] MEDS ORDERED: MEDROXYPROGEST ACET 150 MG/ML IM SCH (09:00)
[2023-03-05 10:36] LABS: Hematocrit 22.7 % (36.0-45.0)
--- NOTE | 2023-03-05 14:13 | RAD REPORT ---
EXAM DESCRIPTION: CT - Abdomen Pelvis W Contrast - 03/05/2023 7:35 am CLINICAL HISTORY: The patient is 42 years old and is Female; anemia; menorrhagia TECHNIQUE: Axial computed tomography images of the abdomen and pelvis with intravenous contrast. S agittal and coronal reformatted images were created and reviewed. This CT exam was performed using one or more of the following dose reduction techniques: automated exposure control, adjustment of t he mA and/or kV according to patient size, and/or use of iterative reconstruction technique. COMPARISON: No relevant prior studies available. FINDINGS: Lung bases: Unremarkable. No mass. No consolidation. Mediastinum: Small hiatal hernia. ABDOMEN: Liver: Unremarkable. No mass. Gallbladder and bile ducts: Gallbladder is surgically absent. No ductal dilation. Pancreas: Unremarkable. No mass. No ductal dilation. Spleen: Unremarkable. No splenomegaly. Adrenals: Unremarkable. No mass. Kidneys and ureters: Unremarkable. No solid mass. No hydronephrosis. Stomach and bowel: Unremarkable. No obstruction. No mucosal thickening. PELVIS: Appendix: The appendix is normal. Bladder: Unremarkable. Reproductive: Unremarkable as visualized. ABDOMEN and PELVIS: Intraperitoneal space: Unremarkable. No free air. No significant fluid collection. Bones/joints: No acute fracture. No dislocation. Soft tissues: Unremarkable. Vasculature: Unremarkable. No abdominal aortic aneurysm. Lymph nodes: Unremarkable. No enlarged lymph nodes. IMPRESSION: No acute finding in the abdomen/pelvis. Electronically signed by: Herminio Tobar MD 03/04/2023 11:57 PM [facility] Due to temporary technical issues with the PACS/Fluency reporting system, reports are being signed by the in house radiologist without review as a courtesy to ensure prompt reporting. The interpreting r adiologist is fully responsible for the content of the report.
[2023-03-05 17:34] VITALS: BP 104/71; TEMP 98
== END 2023-03-05 18:05 | disposition home or self-care (01) ==
LOC: ER 18:54 → 4TH 23:53
PROVIDERS: ADMIT Hospitalist; ATTEND Hospitalist
PROC: 30233N1 Transfusion of Nonautologous Red Blood Cells into Peripheral Vein, Percutaneous Approach (ICD-10-PCS; principal; 2023-03-04)
DX: D50.0 Iron deficiency anemia secondary to blood loss (chronic) (principal); N92.0 Excessive and frequent menstruation with regular cycle; R06.02 Shortness of breath; M62.81 Muscle weakness (generalized)
CPT/HCPCS: 85025 ×2; 80048; 36415; 86900; 86850; 85610; 85044; 86901; 85730; 86920 ×2; 85018; 85014; 82607; 83540; 80053; 74177; 36430 ×2; 99285; Q9967; J3420; Q2035; J1050; J2916; G0378; P9016 ×2; J7050 ×2; J7030

== ENCOUNTER 2023-06-22 18:41 | Observation (INO) | payer OTHER ==
--- OUTSIDE RECORDS SUMMARY | 2023-06-22 18:45 | XMS REPORT | Continuity of Care Document ---
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 Outpatient R MEGHAN HENRIQUEZ [facility] [id number] [facility] 2021-12-20 10:00:00 2021-12-20 10:54:02 [facility] 1.840.114 350.1.13.10 4.2.7.2.686 [id number] [facility] 2021-10-20 05:23:00 2021-10-20 05:23:00 Outpatient RAMSEY_CHARITO PERSAUD MOSANJIV [facility] [id number] Jessica delgado [facility] 2021-10-20 00:00:00 2021-10-20 00:00:00 Telephone Lida Howard [facility] 1.2.840.114 350.1.13.10 4.2.7.2.686 [id number] [facility] 2021-10-20 00:00:00 2021-10-20 00:00:00 Abstract Lida Howard [facility] 1.2.840.114 350.1.13.10 4.2.7.2.686 [id number] [facility] 2021-10-20 00:00:00 2021-10-20 00:00:00 Telephone Lida Howard [facility] 1.2.840.114 350.1.13.10 4.2.7.2.686 [id number] [facility] 2021-10-19 00:00:00 2021-10-19 00:00:00 Telephone Lida Howard [facility] 1.2.840.114 350.1.13.10 4.2.7.2.686 [id number] [facility] 2021-10-13 00:00:00 2021-10-13 00:00:00 Patient Secure Msg Doctor Unassigned, [place] [facility] 1.2.840.114 350.1.13.10 4.2.7.2.686 [id number] [facility] 2021-10-10 09:00:00 2021-10-10 10:13:55 Office Visit Lida Howard [facility] 1.2.840.114 350.1.13.10 4.2.7.2.686 [id number] [facility] 2021-10-10 09:00:00 2021-10-10 10:13:55 Outpatient R LIDA HOWARD [facility] [id number] [facility] Results Test Description Test Time Test Comments Results Result Co mments Source [facility] Only[facility]2022-03-01 19:31:50* Test Item Value Reference Range Interpretation Comme nts ABO & RH (test code = 20) O Positive Performed at [facility] Laboratory [facility] Blood [place] [address]Toll Free: [phone] No. [id number] [facility] and Screen - ONCE [id number] 19:00:09 * Test Item Value Reference Range Interpretation Comme nts ABO & RH (test code = 20) O Positive Performed at [facility] Blood [place] [address]Toll Free: [phone] No. [id number] IAT (test code = 1185) Negative Performed at [facility] Blood [address]Toll Free: [phone] No. [id number] [facility] WITH [id number] 18:03:42* Test Item Value Reference Range Interpretation Comme nts WBC (test code = 6690-2) See_Comment [Automated messa ge] The system which generated this result transmitted reference range: 4.30 - 11.10 10*3/?L. The reference range was not used to interpret this result as normal/abnormal. RBC (test code = 789-8) See_Comment L [Automated messa ge] The system which generated this result transmitted reference range: 3.93 - 5.25 10*6/?L. The reference range was not used to interpret this result as normal/abnormal. HGB (test code = 718-7) 6.0 g/dL 11.6-15.0 L HCT (test code = 4544-3) 21.5 % 35.7-45.2 L MCV (test code = 787-2) 69.4 fL 80.6-95.5 L MCH (test code = 785-6) 19.4 pg 25.9-32.8 L MCHC (test code = 786-4) 27.9 g/dL 31.6-35.1 L RDW-SD (test code = 55237-2) 41.9 fL 39.0-49.9 RDW-CV (test code = 788-0) 16.9 % 12.0-15.5 H PLT (test code = 777-3) See_Comment H [Automated messa ge] The system which generated this result transmitted reference range: 166 - 358 10*3/?L. The reference range was not used to interpret this result as normal/abnormal. MPV (test code = 69059-5) 10.4 fL 9.5-12.9 NRBC/100 WBC (test code = 4152609531) See_Comment [Automated [employer] ssage] The system which generated this result transmitted reference range: 0.0 - 10.0 /100 WBCs. The reference range was not used to interpret this result as normal/abnormal. NRBC x10^3 (test code = 8791379255) See_Comment [Automated messa ge] The system which generated this result transmitted reference range: 10*3/?L. The reference range was not used to interpret this result as normal/abnormal. GRAN MAT (NEUT) % (test code = 770-8) 65.9 % IMM GRAN % (test code = 9825622522) 0.60 % LYMPH % (test code = 736-9) 23.2 % MONO % (test code = 5905-5) 8.4 % EOS % (test code = 713-8) 1.3 % BASO % (test code = 706-2) 0.6 % GRAN MAT x10^3(ANC) (test code = 3816503289) 3.55 10*3/uL 1.88-7.09 IMM GRAN x10^3 (test code = 2837591355) 0.03 10*3/uL 0.00-0.06 LYMPH x10^3 (test code = 731-0) 1.25 10*3/uL 1.32-3.29 L MONO x10^3 (test code = 742-7) 0.45 10*3/uL 0.33-0.92 EOS x10^3 (test code = 711-2) 0.07 10*3/uL 0.03-0.39 BASO x10^3 (test code = 704-7) 0.03 10*3/uL 0.01-0.07 ELPIDIO CELLS (test code = 7790-9) 2+ See_Comment A [Automated messa ge] The system which generated this result transmitted reference range: (none). The reference range was not used to interpret this result as normal/abnormal. ELLIPTO/OVAL (test code = 42835-6) 2+ See_Comment A [Automated messa ge] The system which generated this result transmitted reference range: (none). The reference range was not used to interpret this result as normal/abnormal. POLYCHROMASIA (test code = 35348-3) 2+ See_Comment [Automated messa ge] The system which generated this result transmitted reference range: 2+. The reference range was not used to interpret this result as normal/abnormal. GIANT PLATELETS (test code = 5908-9) Present See_Comment A [Automated messa ge] The system which generated this result transmitted reference range: (none). The reference range was not used to interpret this result as normal/abnormal. Lab Interpretation (test code = 04207-8) Abnormal [facility]. METABOLIC PANEL (63849)2022-03-01 17:34:25* Test Item Value Reference Range Interpretation Comme nts NA (test code = 2390608543) 138 mmol/L 135-145 K (test code = 5822937144) 4.5 mmol/L 3.5-5.0 CL (test code = 0394695398) 106 mmol/L 98-108 CO2 TOTAL (test code = 7484542046) 26 mmol/L 23-31 AGAP (test code = 8335673980) 2-16 BUN (test code = 2571579171) 12 mg/dL 7-23 GLUCOSE (test code = 8335348914) 95 mg/dL 70-110 CREATININE (test code = 3646539108) 0.66 mg/dL 0.50-1.04 TOTAL BILI (test code = 3583069462) 0.6 mg/dL 0.1-1.1 CALCIUM (test code = 8186112667) 8.3 mg/dL 8.6-10.6 L T PROTEIN (test code = 6975429528) 7.3 g/dL 6.3-8.2 ALBUMIN (test code = 1016187227) 4.3 g/dL 3.5-5.0 ALK PHOS (test code = 0458825712) 74 U/L 34-122 ALTv (test code = 1742-6) 11 U/L 5-35 AST(SGOT) (test code = 5164092347) 37 U/L 13-40 eGFR (test code = 5308146814) mL/min/1.73m2 MOUNIKA (test code = MOUNIKA) Association of [...] or abnormalities in imaging tests). Lab Interpretation (test code = 61020-0) Abnormal [facility], [id number] 17:31:48* Test Item Value Reference Range Interpretation Comme nts PREG SERUM (test code = 9530489788) Negative MOUNIKA (test code = MOUNIKA) Less than 10 IU/L. ?If low titer or ectopic is suspected, resubmit specimen in 48-72 hours. [facility]"
[2023-06-22 19:30] LABS: Absolute Basophils 0.1 K/uL (0-0.5); Absolute Eosinophils 0.1 K/uL (0-0.5); Absolute Lymphocytes (CBC) 1.4 K/uL (0.7-4.9); Absolute Monocytes 0.6 K/uL (0.1-1.3); Absolute Neutrophil 3.7 K/uL (1.8-8.0); Basophils % 1.2 % (0-1.3); Hematocrit 14.4 % (36.0-45.0); Lymphocytes % 24.1 % (15.3-44.8); MCH 15.3 pg (27.0-35.0); MCHC 29.2 g/dL (32.0-36.0); MCV 52.4 fL (80-100); MPV 8.2 fL (7.6-11.3); Monocytes % 9.9 % (3.3-12.3); Neutrophils % 63.8 % (41.7-73.7); Nucleated Red Blood Cells % 0.1 % (0-0); Platelets 526 thou/uL (152-406); RBC Red Blood Cell Count 2.74 M/uL (3.86-4.86)
[2023-06-22 19:35] LABS: Anion Gap 9.1 mEq/L (5.0-15.0); Potassium 3.1 mEq/L (3.5-5.1)
[2023-06-22 19:39] LABS: Hemoglobin 4.2 g/dL (12.0-15.0)
[2023-06-22] MEDS ORDERED: POTASSIUM CL SA 10 MEQ TAB PO ONE (19:46)
--- NOTE | 2023-06-22 20:27 | EDPHYS ---
Physician Documentation [facility] Name: Jory Wood Age: 42 yrs Sex: Female : 1980 Arrival Date: 06/22/2023 Time: 18:41 Bed 15 Private MD: Carlos Frey ED Physician Percy Clinton HPI: 06/21 20:23 This 42 yrs old Female presents to ER via Ambulatory with complaints of Anemia.kb 20:23 Patient is a 42-year-old female with a history of chronic anemia who presents for kb weakness and shortness of breath on exertion that started about a week ago. States this is how she normally feels when she needs a blood transfusion. Patient reports she has had to have transfusions every 3 to 4 months. Patient has had colonoscopies in the past that were normal. Patient has also been seen by Dr. Soto in the past for chronic anemia but a cause was never found.. 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 - Social history:: Smoking status: Patient denies any tobacco usage or history of. ROS: 20:22 Constitutional: As per HPI kb Exam: 20:22 Constitutional: This is a well developed, well nourished patient who is awake, alert, kb and in no acute distress. Head/Face: Normocephalic, atraumatic. ENT: Moist Mucous membranes Cardiovascular: Regular rate Respiratory: Respirations even and unlabored. No increased work of breathing. Talking in full sentences Skin: Warm, dry with normal turgor. Normal color. MS/ Extremity: Pulses equal, no cyanosis. Neurovascular intact. Full, normal range of motion. Neuro: Awake and alert, GCS 15, oriented to person, place, time, and situation. Moves all extremities. Normal gait. 20:22 Constitutional: The patient appears pale, Vital Signs: 18:48 BP 117 / 63; Pulse 90; Resp 16; Temp 97.4; Pulse Ox 97% on R/A; Weight 80.74 kg; Height iw 5 ft. 0 in. ; 18:48 Body Mass Index 34.76 (80.74 kg, 152.4 cm) iw MDM: 18:52 Patient medically screened. kb 20:22 Differential Diagnosis anemia, dehydration, abnormal electrolytes. Data reviewed: vital kb signs, nurses notes. Consideration of Admission/Observation Patient was admitted/placed on observation. Escalation of care including admission/observation considered. Management of patient was discussed with the following: Hospitalist: Dr Parker accepts pt for admission. Counseling: I had a detailed discussion with the patient and/or guardian regarding the historical points, exam findings, and any diagnostic results supporting the discharge/admit diagnosis, lab results, the need for further work-up and treatment in the hospital. 06/21 18:54 Order name: CBC with Diff; Complete Time: 20:51 iw 06/21 18:54 Order name: BMP; Complete Time: 19:41 iw 06/21 18:54 Order name: Type And Screen 06/21 19:41 Order name: CBC Smear Scan; Complete Time: 20:51 EDRI 06/21 19:47 Order name: Packed RBC Leukored [facility] 06/21 18:54 Order name: IV Start; Complete Time: 19:16 iw Administered Medications: 19:49 Drug: Potassium Chloride PO 40 mEq PO once Route: PO; me1 21:19 Follow up: Response: No adverse reaction me1 Disposition Summary: 06/22/23 20:26 Hospitalization Ordered Notes: Hospitalization Status: Observation kb Provider: Cheikh Parker [facility] Condition: Stable kb Problem: new kb Symptoms: are unchanged kb Bed/Room Type: Standard Room Assignment: 404(06/22/23 20:55) rv1 Diagnosis - Anemia, unspecified kb Forms: - Medication Reconciliation Form kb - SBAR form kb - Leadership Thank You Letter kb Signatures: Dispatcher [employer] Danay Gallardo, PETAR-Kar TIRADOP-Falguni Alva, RN RN Magdalene Cox rv1 Amanda Scott RN RN me1 Corrections: (The following items were deleted from the chart) 20:55 20:26 kb rv1
--- NOTE | 2023-06-22 20:27 | ER ---
Nurse's Notes [facility] Name: Jory Wood Age: 42 yrs Sex: Female : 1980 Arrival Date: 06/22/2023 Time: 18:41 Bed 15 Private MD: Carlos Frey Diagnosis: Anemia, unspecified Presentation: 06/21 18:48 Chief complaint: Patient states: blood count is low, feels weak when she walks, feels iw her heart race and feels SOB on exertion since this week. Coronavirus screen: At this time, the client does not indicate any symptoms associated with coronavirus-19. Ebola Screen: Patient negative for fever greater than or equal to 101.5 degrees Fahrenheit, and additional compatible Ebola Virus Disease symptoms Patient denies exposure to infectious person. Patient denies travel to an Ebola-affected area in the 21 days before illness onset. No symptoms or risks identified at this time. Initial Sepsis Screen: Does the patient meet any 2 criteria? No. Patient's initial sepsis screen is negative. Does the patient have a suspected source of infection? No. Patient's initial sepsis screen is negative. Risk Assessment: Do you want to hurt yourself or someone else? Patient reports no desire to harm self or others. Onset of symptoms was June 18, 2023. 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 - Social history:: Smoking status: Patient denies any tobacco usage or history of. Screenin:16 [facility] ED Fall Risk Assessment (Adult) History of falling in the last 3 months, me1 including since admission No falls in past 3 months (0 pts) Confusion or Disorientation No (0 pts) Intoxicated or Sedated No (0 pts) Impaired Gait No (0 pts) Mobility Assist Device Used No (0 pt) Altered Elimination No (0 pt) Score/Fall Risk Level 0 - 2 = Low Risk Maintained a safe environment, Provided non-skid footwear, Hourly rounding (assess needs \T\ fall precautionary measures) done. Abuse screen: Denies threats or abuse. Nutritional screening: No deficits noted. Tuberculosis screening: No symptoms or risk factors identified. Assessment: 19:16 General: Appears comfortable, well groomed, well developed, well nourished, Behavior is me1 calm, cooperative, appropriate for age, Reports feels like her blood count is low, feels weak when she walks, feels her heart race and feels SOB on exertion since this week. Pain: Denies pain. Neuro: Level of Consciousness is awake, alert, obeys commands, Oriented to person, place, time, situation, Appropriate for age. Cardiovascular: Patient's skin is warm and dry. Respiratory: Reports shortness of breath on exertion Respiratory effort is even, unlabored, Respiratory pattern is regular, symmetrical. GI: No deficits noted. : No deficits noted. Derm: Skin is intact, is healthy with good turgor, Skin is dry, Skin is pale. Musculoskeletal: No deficits noted. 21:18 General: Unit 1 of 2 started transfusing at 21:00. . me1 21:51 General: Patient refused a hospital gown before transport to the floor. . me1 Vital Signs: 18:48 BP 117 / 63; Pulse 90; Resp 16; Temp 97.4; Pulse Ox 97% on R/A; Weight 80.74 kg; Height iw 5 ft. 0 in. ; 18:48 Body Mass Index 34.76 (80.74 kg, 152.4 cm) iw ED Course: 18:43 Patient arrived in ED. mr 18:43 Carlos Frey MD is Private Physician. mr 18:49 Triage completed. iw 18:50 Arm band placed on. iw 18:52 Danay Vargas FNP-C is PHCP. kb 18:52 Percy Clinton MD is Attending Physician. kb 18:57 Amanda Scott RN is Primary Nurse. me1 19:15 Client placed on continuous cardiac and pulse oximetry monitoring. NIBP monitoring me1 applied. Pulse ox on. NIBP on. Warm blanket given. 19:15 Initial lab(s) drawn, by me, sent to lab. T\T\S collected, blood band applied to patient. me1 Inserted saline lock: 22 gauge in right antecubital area, using aseptic technique. 19:16 Patient has correct armband on for positive identification. Call light in reach. Side me1 rails up X 1. Provided Education on: POC. Verbalized understanding. . 19:16 BMP Sent. me1 19:16 CBC with Diff Sent. me1 19:16 Type And Screen Sent. me1 19:16 No provider procedures requiring assistance completed. me1 20:26 Cheikh Parker is Hospitalizing Provider. kb 21:51 Patient admitted, IV remains in place. me1 Administered Medications: 19:49 Drug: Potassium Chloride PO 40 mEq PO once Route: PO; me1 21:19 Follow up: Response: No adverse reaction me1 Medication: 19:16 VIS not applicable for this client. me1 Outcome: 20:26 Decision to Hospitalize by Provider. kb 21:27 Admitted to Tele accompanied by nurse, via wheelchair, room 404, with chart, Report me1 called to faxed at 21:20. Fax receipt confirmed with [place]. 21:27 Condition: stable 21:27 Instructed on the need for admit, 22:09 Patient left the ED. me1 Signatures: Danay Vargas, THERAPIST OCCUPATIONAL-C THERAPIST OCCUPATIONAL-Ckb Elvia Stock, Reg Reg mr Falguni Russell, RN RN iw Amanda Scott, RN RN me1 Corrections: (The following items were deleted from the chart) 19:16 18:48 Chief complaint: Patient states: blood count is low, feels weak when she walks, me1 feels her heart race and feels SOB on exertion since this week iw
[2023-06-22] MEDS ORDERED: NA CHLORIDE 0.9% 250 ML ONE (20:41)
[2023-06-22 20:50] LABS: Blood Morphology Comment NOTED (NOT SEEN); Platelet Estimate INCR; White Blood Cell Scan OK (OK)
[2023-06-22 20:51] LABS: Anisocytosis 2+; Hypochromasia 2+; Microcytosis 3+; Ovalocytes 2+; Teardrop Cell 1+
[2023-06-22] MEDS ORDERED: ONDANSETRON 4 MG/2 ML VIAL IV PRN (20:58)
--- NOTE | 2023-06-22 22:25 | P.HP ---
Certification for Inpatient Patient admitted to: Observation With expected LOS: <2 Midnights Practitioner: I am a practitioner with admitting privileges, knowledge of patient current condition, hospital course, and medical plan of care. Services: Services provided to patient in accordance with Admission requirements found in Title 42 Section 412.3 of the Code of Federal Regulations Patient History Date of Service: 06/22/23 Reason for admission: Fatigue, palpitation History of Present Illness: 42-year-old woman with a history of recurrent anemia presented to the emergency department with a complain of fatigue, dyspnea on exertion and palpitation. Patient has a history of anemia and has undergone workup with EGD and colonoscopy. Prior EGD reported gastric erosions, esophagitis and Schatzki ring. Colonoscopy did not show any significant findings to explain her recurrent anemia. Patient has apparently been evaluated by hematology oncologist Dr. Soto and has received IV iron infusion in the past for severe iron deficiency. Patient reports history of hemorrhoids but denies any hematochezia. She also denies any melena. Hemoglobin in the emergency department was down to 4.2. She was given a dose of Depo Provera for menorrhagia in March 2023 and according to the patient consistent with any menses since then. ED provider ordered 2 unit PRBC transfusion. Patient is hospitalized for further transfusions as needed and monitoring. Allergies hydrocodone [Hydrocodone] Adverse Reaction (Severe, Verified 06/22/23 22:32) Itching - Past Medical/Surgical History Diabetic: No -: Hemorrhoid -: gi bleed -: anemia -: esophagitis -: Cholecystectomy -: plastic surgery [facility] from [facility] -: vein [facility] from [facility] - Family History Father -: Hypertension, Stroke Notes: dad from stroke in 2009 Mother Notes: No history provided - Social History Alcohol use: No CD- Drugs: No Caffeine use: Yes Review of Systems Other: Patient denies any chest pain, she endorsed palpitations. Except as documented, all systems reviewed and negative. Physical Examination - Physical Exam General: Alert, In no apparent distress, Oriented x3 HEENT: Mucous membr. moist/pink Neck: Supple, JVD not distended Respiratory: Clear to auscultation bilaterally, Normal air movement Cardiovascular: No edema, Regular rate/rhythm, Normal S1 S2, No murmurs Capillary refill: <2 Seconds Gastrointestinal: Normal bowel sounds, Soft and benign, Non-distended, No tenderness Musculoskeletal: No swelling Integumentary: No rashes, No cyanosis Neurological: Normal strength at 5/5 x4 extr, Cranial nerves 3-12 intact Lymphatics: No axilla or inguinal lymphadenopathy - Studies Laboratory Data (last 24 hrs) 06/22/23 06/22/23 19:09 19:09 WBC 5.80 Hgb 4.2 L* Hct 14.4 L Plt Count 526 H Sodium 139 Potassium 3.1 L BUN 13 Creatinine 0.82 Glucose 114 H Assessment and Plan - Problems (Diagnosis) (1) Symptomatic anemia Current Visit: No Status: Acute (2) Iron deficiency anemia Current Visit: No Status: Acute (3) History of GI bleed Current Visit: Yes Status: Acute - Plan Place patient under observation. 2 units PRBC transfusion ordered. Monitor H&H and transfuse as needed for a target hemoglobin greater than 7. Check iron profile and start IV iron as needed. Oral iron plus vitamin C supplementation on discharge. Further workup for anemia as outpatient. Patient may need outpatient GI follow-up and possibly capsular endoscopy. - Advance Directives Does patient have a Living Will: No Does patient have a Durable POA for Healthcare: No
[2023-06-22 22:51] VITALS: BMI 34.7
[2023-06-22 23:20] VITALS: O2SAT 100
[2023-06-23] MEDS ORDERED: NA CHLORIDE 0.9% 250 ML IV SCH (03:00)
[2023-06-23 08:05] LABS: Absolute Eosinophils 0.1 K/uL (0-0.5); Absolute Lymphocytes (CBC) 1.1 K/uL (0.7-4.9); Absolute Monocytes 0.4 K/uL (0.1-1.3); Absolute Neutrophil 2.4 K/uL (1.8-8.0); Basophils % 0.8 % (0-1.3); Eosinophils % 2.2 % (0-4.4); Hematocrit 22.7 % (36.0-45.0); Hemoglobin 6.9 g/dL (12.0-15.0); Lymphocytes % 26.6 % (15.3-44.8); MCH 19.8 pg (27.0-35.0); MCHC 30.4 g/dL (32.0-36.0); MCV 65.3 fL (80-100); MPV 8.3 fL (7.6-11.3); Monocytes % 10.4 % (3.3-12.3); Nucleated Red Blood Cells % 0.2 % (0-0); Platelets 395 thou/uL (152-406); RBC Red Blood Cell Count 3.47 M/uL (3.86-4.86); Red Cell Distribution Width 36.3 % (12.1-15.2)
[2023-06-23 08:13] LABS: PT Prothrombin Time 12.1 SECONDS (9.5-12.5); Protime INR 1.1
[2023-06-23 08:25] LABS: Anion Gap 6.6 mEq/L (5.0-15.0); Magnesium 2.1 mg/dL (1.6-2.4); Phosphorus 2.2 mg/dL (2.5-4.9); Potassium 3.6 mEq/L (3.5-5.1)
[2023-06-23] MEDS: SOD FERRIC GLUC COMPLX/SUCROSE 125 MG in NA CHLORIDE 0.9% 100 ML IV SCH (10:56)
[2023-06-23] MEDS: ACETAMINOPHEN 325 MG TABLET PO PRN (10:57)
[2023-06-23 18:38] LABS: Absolute Eosinophils 0.1 K/uL (0-0.5); Absolute Monocytes 0.5 K/uL (0.1-1.3); Basophils % 0.7 % (0-1.3); Eosinophils % 1.5 % (0-4.4); Hematocrit 26.5 % (36.0-45.0); Hemoglobin 8.3 g/dL (12.0-15.0); Lymphocytes % 17.5 % (15.3-44.8); MCH 21.1 pg (27.0-35.0); MCHC 31.4 g/dL (32.0-36.0); MCV 67.3 fL (80-100); MPV 8.2 fL (7.6-11.3); Monocytes % 8.3 % (3.3-12.3); Nucleated Red Blood Cells % 0.1 % (0-0); Platelets 419 thou/uL (152-406); RBC Red Blood Cell Count 3.94 M/uL (3.86-4.86); Red Cell Distribution Width 36.5 % (12.1-15.2)
[2023-06-23 21:28] VITALS: BP 131/66; TEMP 97.7
== END 2023-06-23 21:30 | disposition home or self-care (01) ==
LOC: ER 18:41 → ERHOLD 20:46 → 4TH 21:24
PROVIDERS: ADMIT Internal Medicine; ATTEND Hospitalist
DX: D50.9 Iron deficiency anemia, unspecified (principal); R00.2 Palpitations; R53.83 Other fatigue; R06.00 Dyspnea, unspecified; Z88.5 Allergy status to narcotic agent
CPT/HCPCS: 36430; 85025 ×3; 80048 ×2; 36415; 86900; 83735; 86850; 84100; 85610; 86901; 86920 ×3; 83540; 84466; 99285; J2916; P9016 ×3; J7050 ×3; G0378 ×3

== ENCOUNTER 2023-12-09 14:06 | Emergency (ER) | payer OTHER ==
[2023-12-09 15:08] LABS: Absolute Basophils 0.1 K/uL (0-0.5); Absolute Eosinophils 0.1 K/uL (0-0.5); Absolute Monocytes 0.7 K/uL (0.1-1.3); Absolute Neutrophil 5.2 K/uL (1.8-8.0); Basophils % 0.9 % (0-1.3); Eosinophils % 1.6 % (0-4.4); Hematocrit 17.4 % (36.0-45.0); Lymphocytes % 14.6 % (15.3-44.8); MCH 17.2 pg (27.0-35.0); MCHC 29.8 g/dL (32.0-36.0); MCV 57.8 fL (80-100); MPV 8.3 fL (7.6-11.3); Monocytes % 9.5 % (3.3-12.3); Neutrophils % 73.4 % (41.7-73.7); Nucleated Red Blood Cells % 0.1 % (0-0); Platelets 455 thou/uL (152-406); RBC Red Blood Cell Count 3.01 M/uL (3.86-4.86); Red Cell Distribution Width 21.2 % (12.1-15.2)
[2023-12-09 15:15] LABS: Albumin 3.2 g/dL (3.4-5.0); Albumin/Globulin Ratio 0.8 (1.1-1.8); Alkaline Phosphatase 86 U/L (45-117); Anion Gap 8.5 mEq/L (5.0-15.0); BUN Blood Urea Nitrogen 9 mg/dL (7-18); Bicarbonate 27 mEq/L (21-32); Bilirubin Total 0.3 mg/dL (0.2-1.0); Globulin 3.8 g/dL (2.3-3.5); Glomerular Filtration Rate 111 ml/min (=/>90); Glucose Level 99 mg/dL (74-106); Potassium 3.5 mEq/L (3.5-5.1); Sodium Level 137 mEq/L (136-145)
[2023-12-09 15:16] LABS: ALT/SGPT < 14 U/L (13-56); AST/SGOT < 10 U/L (15-37)
[2023-12-09 15:18] LABS: Hemoglobin 5.2 g/dL (12.0-15.0)
[2023-12-09 16:54] LABS: Anisocytosis 2+; Blood Morphology Comment NOTED (NOT SEEN); Hypochromasia 3+; Platelet Estimate INCR; Poikilocytosis 2+; White Blood Cell Scan OK (OK)
[2023-12-09] MEDS ORDERED: NA CHLORIDE 0.9% 250 ML ONE ×2 (17:03→19:57)
--- NOTE | 2023-12-09 22:39 | ER ---
Nurse's Notes [facility] Name: Jory Wood Age: 43 yrs Sex: Female : 1980 Arrival Date: 12/09/2023 Time: 14:06 Bed 14 Private MD: Diagnosis: Symptomatic anemia Presentation: 12/08 14:12 Chief complaint: Patient states: November 29 received lab results of Hgb 5.6. 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 Today feeling tired and weak. Coronavirus screen: Vaccine status: Patient reports receiving the 2nd dose of the covid vaccine. Ebola Screen: Patient negative for fever greater than or equal to 101.5 degrees Fahrenheit, and additional compatible Ebola Virus Disease symptoms Patient denies exposure to infectious person. Patient denies travel to an Ebola-affected area in the 21 days before illness onset. No symptoms or risks identified at this time. Initial Sepsis Screen: Does the patient meet any 2 criteria? No. Patient's initial sepsis screen is negative. Does the patient have a suspected source of infection? No. Patient's initial sepsis screen is negative. Risk Assessment: Do you want to hurt yourself or someone else? Patient reports no desire to harm self or others. Onset of symptoms was November 30, 2023. 14:12 Method Of Arrival: Ambulatory 6 14:12 Acuity: ARUN 3 tm6 Triage Assessment: 14:13 General: Appears in no apparent distress. Behavior is calm, cooperative. Pain: Denies tm6 pain. EENT: No signs and/or symptoms were reported regarding the EENT system. Neuro: Level of Consciousness is awake, alert, obeys commands, Oriented to person, place, time, situation. Cardiovascular: Patient's skin is warm and dry. Respiratory: Airway is patent Respiratory effort is even, unlabored, Respiratory pattern is regular, symmetrical. GI: No signs and/or symptoms were reported involving the gastrointestinal system. Abdomen is round non-distended. : No signs and/or symptoms were reported regarding the genitourinary system. Derm: No signs and/or symptoms reported regarding the dermatologic system. Musculoskeletal: Reports weakness in general weakness since one week ago. 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 - Infectious Disease History:: Denies. - Social history:: Smoking status: Patient denies any tobacco usage or history of. Patient uses alcohol, occasionally. - Family history:: not pertinent. Screenin:13 [facility] ED Fall Risk Assessment (Adult) History of falling in the last 3 months, rg5 including since admission No falls in past 3 months (0 pts) Confusion or Disorientation No (0 pts) Intoxicated or Sedated No (0 pts) Impaired Gait No (0 pts) Mobility Assist Device Used No (0 pt) Altered Elimination No (0 pt) Score/Fall Risk Level 0 - 2 = Low Risk Oriented to surroundings, Maintained a safe environment, Educated pt \T\ family on fall prevention, incl call for assistance when getting out of bed, Hourly rounding (assess needs \T\ fall precautionary measures) done. Abuse screen: Denies threats or abuse. Nutritional screening: No deficits noted. Tuberculosis screening: No symptoms or risk factors identified. Assessment: 19:13 General: Appears in no apparent distress. comfortable, Behavior is calm, cooperative, rg5 appropriate for age. Pain: Denies pain. Neuro: Level of Consciousness is awake, alert, obeys commands, Oriented to person, place, time, situation. Cardiovascular: Heart tones S1 S2 Capillary refill < 3 seconds Patient's skin is warm and dry. Respiratory: Airway is patent Trachea midline Respiratory effort is even, unlabored, Respiratory pattern is regular, symmetrical. GI: Abdomen is round non-distended. : No signs and/or symptoms were reported regarding the genitourinary system. EENT: No deficits noted. Derm: Skin is intact, Skin is dry, Skin is pale, Skin temperature is warm. Musculoskeletal: Range of motion: intact in all extremities. 20:22 Reassessment: No changes from previously documented assessment. Patient and/or family rg5 updated on plan of care and expected duration. Pain level reassessed. Patient is alert, oriented x 3, equal unlabored respirations, skin warm/dry/pink. 21:38 Reassessment: No changes from previously documented assessment. Patient and/or family rg5 updated on plan of care and expected duration. Pain level reassessed. Patient is alert, oriented x 3, equal unlabored respirations, skin warm/dry/pink. Neuro: Level of Consciousness is awake, alert, obeys commands. Respiratory: Airway is patent Trachea midline Respiratory effort is even, unlabored, Respiratory pattern is regular, symmetrical. 22:15 Reassessment: Patient and/or family updated on plan of care and expected duration. Pain rg5 level reassessed. Patient is alert, oriented x 3, equal unlabored respirations, skin warm/dry/pink. Patient states feeling better. Patient states symptoms have improved. Vital Signs: 14:11 BP 115 / 87; Pulse 90; Resp 19; Temp 98.5(O); Pulse Ox 100% on R/A; Weight 80.74 kg; tm6 Height 5 ft. 0 in. ; Pain 0/10; 19:05 BP 114 / 78; Pulse 77; Resp 16; Temp 97.8(T); Pulse Ox 100% ; Pain 0/10; rg5 20:00 BP 116 / 84; Pulse 78; Resp 16; Temp 97.8(T); Pulse Ox 100% ; Pain 0/10; rg5 22:04 BP 111 / 75; Pulse 77; Resp 16; Temp 97.6; Pulse Ox 100% on R/A; Pain 0/10; rg5 14:11 Body Mass Index 34.76 (80.74 kg, 152.4 cm) tm6 14:11 Pain Scale: Adult tm6 19:05 Pain Scale: Adult rg5 20:00 Pain Scale: Adult rg5 22:04 Pain Scale: Adult rg5 ED Course: 14:08 Patient arrived in ED. ra3 14:13 Triage completed. tm6 14:13 Arm band placed on right wrist. tm6 14:14 Rio Jay MD is Attending Physician. rt 14:35 Amanda Scott RN is Primary Nurse. me1 14:48 Initial lab(s) drawn, by wi, sent to lab. T\T\S collected, blood band applied to patient. me1 Inserted saline lock: 22 gauge in right forearm, using aseptic technique. 14:48 Type And Screen Sent. me1 14:48 CMP Sent. me1 14:48 CBC with Diff Sent. me1 19:05 Provided Education on: Blood Transfusion. rg5 19:13 Patient has correct armband on for positive identification. rg5 19:13 No provider procedures requiring assistance completed. rg5 19:16 Bb Add On Sent. rg5 23:00 IV discontinued, bleeding controlled, No redness/swelling at site. Pressure dressing rg5 applied. Administered Medications: No medications were administered Medication: 19:13 VIS not applicable for this client. rg5 20:00 Blood products: PRBCs X 1 unit given. rg5 Outcome: 22:39 Discharge ordered by MD. ec2 22:59 Discharged to home ambulatory, rg5 22:59 Condition: good 22:59 Discharge instructions given to patient, Instructed on discharge instructions, follow up and referral plans. Demonstrated understanding of instructions, 23:00 Patient left the ED. rg5 Signatures: Rio Jay MD MD rt Amanda Scott RN RN me1 Elias Arellano MD MD ec2 Korey Duffy RN RN tm6 Felicia Tamayo 3 Antony Grande, ANA RN rg5 Corrections: (The following items were deleted from the chart) 20:36 20:22 Blood products: PRBCs X 1 unit given. rg5 rg5
--- NOTE | 2023-12-09 22:40 | EDPHYS ---
Physician Documentation [facility] Name: Jory Wood Age: 43 yrs Sex: Female : 1980 Arrival Date: 12/09/2023 Time: 14:06 Bed 14 Private MD: ED Physician Rio Jay HPI: 12/08 19:09 This 43 yrs old Female presents to ER via Ambulatory with complaints of rt Abnormal Lab Results. 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 Reports that her hemoglobin was 5.6 in the office about a week ago. She reports fatigue is her only symptom, denies lightheadedness, shortness of breath. Denies any bleeding, melena. Denies other acute complaints, symptoms are moderate in severity, no other aggravating or alleviating factors.. 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 - Infectious Disease History:: Denies. - Social history:: Smoking status: Patient denies any tobacco usage or history of. Patient uses alcohol, occasionally. - Family history:: not pertinent. ROS: 19:09 Cardiovascular: Negative for chest pain, palpitations, and edema, Respiratory: Negative rt for shortness of breath, cough, wheezing, and pleuritic chest pain, Abdomen/GI: Negative for abdominal pain, nausea, vomiting, diarrhea, and constipation, Skin: Negative for injury, rash, and discoloration, Neuro: Negative for headache, weakness, numbness, tingling, and seizure, Psych: Negative for depression, anxiety, suicide ideation, homicidal ideation, and hallucinations, 19:09 Constitutional: Positive for fatigue, Negative for fever, Exam: 19:09 Constitutional: This is a well developed, well nourished patient who is awake, alert, rt and in no acute distress. Head/Face: Normocephalic, atraumatic. Chest/axilla: Normal chest wall appearance and motion. Nontender with no deformity. No lesions are appreciated. Cardiovascular: Regular rate and rhythm with a normal S1 and S2. No gallops, murmurs, or rubs. Normal PMI, no JVD. No pulse deficits. Respiratory: Lungs have equal breath sounds bilaterally, clear to auscultation and percussion. No rales, rhonchi or wheezes noted. No increased work of breathing, no retractions or nasal flaring. Abdomen/GI: Soft, non-tender, with normal bowel sounds. No distension or tympany. No guarding or rebound. No evidence of tenderness throughout. Skin: Warm, dry with normal turgor. Normal color with no rashes, no lesions, and no evidence of cellulitis. MS/ Extremity: Pulses equal, no cyanosis. Neurovascular intact. Full, normal range of motion. Neuro: Awake and alert, GCS 15, oriented to person, place, time, and situation. Cranial nerves II-XII grossly intact. Motor strength 5/5 in all extremities. Sensory grossly intact. Cerebellar exam normal. Normal gait. Vital Signs: 14:11 BP 115 / 87; Pulse 90; Resp 19; Temp 98.5(O); Pulse Ox 100% on R/A; Weight 80.74 kg; tm6 Height 5 ft. 0 in. ; Pain 0/10; 19:05 BP 114 / 78; Pulse 77; Resp 16; Temp 97.8(T); Pulse Ox 100% ; Pain 0/10; rg5 20:00 BP 116 / 84; Pulse 78; Resp 16; Temp 97.8(T); Pulse Ox 100% ; Pain 0/10; rg5 22:04 BP 111 / 75; Pulse 77; Resp 16; Temp 97.6; Pulse Ox 100% on R/A; Pain 0/10; rg5 14:11 Body Mass Index 34.76 (80.74 kg, 152.4 cm) tm6 14:11 Pain Scale: Adult tm6 19:05 Pain Scale: Adult rg5 20:00 Pain Scale: Adult rg5 22:04 Pain Scale: Adult rg5 MDM: 14:20 Patient medically screened. rt 19:09 Differential Diagnosis Iron deficiency anemia. Data reviewed: vital signs, nurses rt notes, lab test result(s). Consideration of Admission/Observation Escalation of care including admission/observation considered. No evidence of active bleeding, patient does not wish to be admitted to the hospital. She has good outpatient follow-up. Stable for outpatient care following blood transfusion. Care significantly affected by the following chronic conditions: Iron deficiency anemia. Counseling: I had a detailed discussion with the patient and/or guardian regarding the historical points, exam findings, and any diagnostic results supporting the discharge/admit diagnosis, lab results, the need for outpatient follow up, to return to the emergency department if symptoms worsen or persist or if there are any questions or concerns that arise at home. Response to treatment: the patient's symptoms have markedly improved after treatment. 12/08 14:30 Order name: Type And Screen rt 12/08 14:30 Order name: CBC with Diff; Complete Time: 19:13 rt 12/08 14:30 Order name: CMP; Complete Time: 19:13 rt 12/08 15:23 Order name: Bb Add On eb 12/08 15:52 Order name: Packed RBC Leukored EDMS 12/08 16:54 Order name: CBC Smear Scan; Complete Time: 19:13 EDMS Administered Medications: No medications were administered Disposition Summary: 12/09/23 22:39 Discharge Ordered Notes: Location: Home ec2 Problem: chronic ec2 Symptoms: have improved ec2 Condition: Stable ec2 Diagnosis - Symptomatic anemia ec2 Followup: rt - With: Private Physician - When: 2 - 3 days - Reason: Discharge Instructions: - Discharge Summary Sheet rt - Anemia rt - Blood Transfusion, Adult rt Forms: - Medication Reconciliation Form ec2 - Antibiotic Education ec2 - Prescription Opioid Use ec2 - Patient Portal Instructions ec2 - Leadership Thank You Letter ec2 Critical care time excluding procedures: 19:09 Critical care time: Bedside Care: 35 minutes. Total time: 35 minutes rt Signatures: Dispatcher [employer] Rio Gross MD MD rt Elias Arellano MD MD ec2 Korey Duffy RN RN tm6
[2023-12-09 23:35] VITALS: O2SAT 100
[2023-12-09 23:41] VITALS: BP 111/75; TEMP 97.6
== END 2023-12-09 23:00 | disposition home or self-care (01) ==
LOC: ER 14:06
DX: D50.9 Iron deficiency anemia, unspecified (principal)
CPT/HCPCS: 85025; 36415; 86900; 86850; 86901; 86920 ×2; 80053; 36430; 99284; P9016 ×2; J7050 ×2

== ENCOUNTER 2024-08-12 18:39 | Emergency (ER) | payer OTHER ==
--- OUTSIDE RECORDS SUMMARY | 2024-08-12 18:45 | XMS REPORT | Continuity of Care Document ---
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 [facility] Complete Blood Count w/Diff and Platelet 2023-10-15 00:00:00 [facility] Comprehensive metabolic panel 2023-10-15 00:00:00 [facility] INSURANCE CORRESPONDENCE 2022-04-04 06:01:00 Doc tor Unassigned, [place] [facility] HM COLONOSCOPY 2022-04-02 00:00:00 Provider, Chuck kelly External Data [facility] TRANSFUSE PACKED RBC 2022-03-01 20:05:00 Everett Thurston [facility] PREPARE PACKED RBC 2022-03-01 19:48:29 Sarah Thurston [facility] ABORH CONFIRMATION (LAB ONLY) 2022-03-01 19:14:00 Sarah Thurston [facility] HB ABO GROUPING 2022-03-01 17:15:00 [facility], [facility] 2022-03-01 17:08:00 Luis Thurston [facility] COMP. METABOLIC PANEL ([id number]) 2022-03-01 17:08:00 Sarah Thurston [facility] CBC WITH DIFF 2022-03-01 17:08:00 Sarah Thurston [facility] CONSENT/REFUSAL FOR DIAGNOSIS AND TREATMENT 2022-03-01 16:37:47 Doctor Unassigned, [place] [facility] Encounters Start Date/Time End Date/Time Encounter Type Admission Type Attending Clinicians Care Facility Care Department Encounter ID Source 2024-12-05 11:15:00 2024-12-05 11:15:00 Outpatient GABBY CHAVEZ [facility] [id number] [facility] 2024-08-19 10:15:00 2024-08-19 10:15:00 Outpatient ELKIN ROTH [facility] [id number] [facility] 2024-06-06 00:00:00 2024-08-06 20:32:28 Results Follow-Up Chloe Leo 1.2.840.114 350.1.13.70 8.2.7.2.686 [id number] 2024-04-07 00:00:00 2024-06-07 20:33:40 Results Follow-Up Chloe Leo Himanshu 1.2.840.114 350.1.13.70 8.2.7.2.686 [id number] Nic lomas [facility] 2024-06-06 16:24:00 2024-06-06 23:55:00 Emergency X LEATHA LOPEZ [facility] ERT [id number] [facility] 2024-06-05 10:59:47 2024-06-05 11:43:17 Outpatient Elective LEOCHICOI EOUT [facility] [id number] EOUT 2024-06-05 11:00:00 2024-06-05 11:15:00 Office Visit LeoChiconarciso Downs 1.2.840.114 350.1.13.70 8.2.7.2.686 [id number] Nic lomas [facility] 2024-04-03 16:00:00 2024-04-03 16:39:22 Office Visit Chico Leonarciso Downs 1.2.840.114 350.1.13.70 8.2.7.2.686 [id number] Nic lomas [facility] 2024-04-03 15:56:14 2024-04-03 16:39:22 Outpatient Elective LEOCHICOI MHEOUT MHEOUT [id number] [facility] 2024-03-25 09:22:00 2024-03-26 17:15:00 Hospital Encounter Sydni, Chele Dewey, Huma Chaudhary [facility] 1.2840.114 350.1.13.70 8.2.7.2.686 [id number] Nic [facility] 2024-03-25 09:22:00 2024-03-26 17:15:00 Inpatient Emergency HUMA LEAVITT [facility] General Medicine [id number] [facility] 2024-02-06 13:22:00 2024-02-06 18:58:00 Emergency X ARIANE VALDEZ STUART [facility] ERT [id number] [facility] 2024-02-06 13:22:00 2024-02-06 18:58:00 Emergency Valdez Gasca [facility] 1.2.840.114 350.1.13.10 4.2.7.2.686 [id number] [facility] 2024-01-31 09:56:40 2024-01-31 23:59:00 Outpatient MHIEEPIC MHIEEPIC [id number] Nic Jeffery [facility] 2024-01-31 09:56:40 2024-01-31 23:59:00 Outpatient MHIEEPIC MHIEEPIC [id number] Nic Jeffery [facility] 2023-12-06 10:30:00 2023-12-06 10:54:54 Telemedici ne Gabby Chavez [facility] 1..840.114 350.1.13.58 9.2.7.2.686 [id number] [facility] 2023-11-08 15:00:00 2023-11-08 15:00:00 Outpatient GABBY CHAVEZ [facility] [id number] [facility] 2023-11-06 10:15:00 2023-11-06 10:29:58 Office Visit Chloe Leo 1.2.840.114 350.1.13.70 8.2.7.2.686 [id number] Nic Jeffery [facility] 2023-11-06 10:13:18 2023-11-06 10:29:58 Outpatient CHLOE LEO ANA ROSA EOUT [id number] EOUT 2023-11-01 09:00:00 2023-11-01 09:34:27 Office Visit Gabby Chavez [facility] 1..840.114 350.1.13.58 9.2.7.2.686 [id number] [facility] 2023-10-22 00:00:00 2023-10-22 09:36:17 Telephone Mishel Montenegro Marsha Alvin 1.2.840.114 350.1.13.70 8.2.7.2.686 [id number] [facility] 2023-10-19 08:46:00 2023-10-19 14:29:00 [id number] [facility] 2023-10-15 15:30:00 2023-10-15 16:29:44 Office Visit Chloe Leo 1.2.840.114 350.1.13.70 8.2.7.2.686 [id number] [facility] 2023-10-15 15:27:39 2023-10-15 16:29:44 Outpatient Elective CHLOE LEO EOUT EOUT [id number] [facility] 2023-01-30 00:00:00 2023-01-30 00:00:00 Outpatient GC_GCBZW_Ka diyala_S PRIV PRIV [id number] [facility] 2023-01-29 00:00:00 2023-01-29 00:00:00 Outpatient GC_GCBZW_Ka diyala_S PRIV PRIV [id number] [facility] 2022-08-03 15:20:00 2022-08-03 15:20:00 Outpatient R MEGHAN HENRIQUEZ [facility] [id number] [facility] 2022-06-20 08:30:00 2022-06-20 08:30:00 Outpatient R SEBASTIAN MERCADO [facility] [id number] [facility] 2022-04-26 00:00:00 2022-04-26 00:00:00 Patient Secure Msg Doctor Unassigned, [place] [facility] 1.2.840.114 350.1.13.10 4.2.7.2.686 [id number] [facility] 2022-04-20 00:00:00 2022-04-20 00:00:00 Refill Meghan Henriquez [facility] 1.2840.114 350.1.13.10 4.2.7.2.686 [id number] [facility] 2022-04-18 00:00:00 2022-04-18 00:00:00 Patient Secure Msg Sergeychelo Meghan [facility] 1.2840.114 350.1.13.10 4.2.7.2.686 [id number] [facility] 2022-04-07 00:00:00 2022-04-07 00:00:00 Patient Secure Msg Doctor Unassigned, [place] [facility] 1.2840.114 350.1.13.10 4.2.7.2.686 [id number] [facility] 2022-04-04 00:00:00 2022-04-04 00:00:00 Orders Only Doctor Unassigned, [place] [facility] 1.2840.114 350.1.13.10 4.2.7.2.686 [id number] [facility] 2022-03-31 15:00:00 2022-03-31 15:44:12 Outpatient R MEGHAN HENRIQUEZ [facility] [id number] [facility] 2022-03-31 15:00:00 2022-03-31 15:44:12 Office Visit Meghan Henriquez [facility] 1.2840.114 350.1.13.10 4.2.7.2.686 [id number] [facility] 2022-03-22 15:20:00 2022-03-22 15:20:00 Outpatient R MEGHAN HENRIQUEZ [facility] [id number] [facility] 2022-03-01 10:47:00 2022-03-01 16:46:00 Emergency X SARAH THURSTON [facility] ERT [id number] [facility] 2022-03-01 10:47:00 2022-03-01 16:46:00 Emergency Sarah Thurston [facility] 1..840.114 350.1.13.10 4.2.7.2.686 [id number] [facility] 2022-03-01 00:00:00 2022-03-01 00:00:00 Patient Secure Msg Doctor Unassigned, [place] [facility] 1.840.114 350.1.13.10 4.2.7.2.686 [id number] [facility] 2022-01-05 00:00:00 2022-01-05 00:00:00 Patient Secure Msg Doctor Unassigned, [place] [facility] 1.2840.114 350.1.13.10 4.2.7.2.686 [id number] [facility] 2021-12-20 10:00:00 2021-12-20 10:54:02 Outpatient R MEGHAN HENRIQUEZ [facility] [id number] [facility] 2021-12-20 10:00:00 2021-12-20 10:54:02 Office Visit Meghan Henriquez [facility] PROFESSIO [facility] 1.840.114 350.1.13.10 4.2.7.2.686 [id number] [facility] 2021-10-20 05:23:00 2021-10-20 05:23:00 Outpatient RAMSEY_CHARITO PERSAUD UTSANJIV [facility] [id number] Jessica delgado [facility] [place] 2021-10-20 00:00:00 2021-10-20 00:00:00 Telephone Lida Howard [facility] 1.2840.114 350.1.13.10 4.2.7.2.686 [id number] [facility] 2021-10-20 00:00:00 2021-10-20 00:00:00 Telephone Lida Howard [facility] 1.2840.114 350.1.13.10 4.2.7.2.686 [id number] [facility] 2021-10-20 00:00:00 2021-10-20 00:00:00 [facility] 1.2840.114 350.1.13.10 4.2.7.2.686 [id number] [facility] 2021-10-19 00:00:00 2021-10-19 00:00:00 Telephone Anita [facility]OCE[facility] 1.2840.114 350.1.13.10 4.2.7.2.686 [id number] [facility] 2021-10-13 00:00:00 2021-10-13 00:00:00 Patient Secure Msg Doctor Unassigned, [place] [facility] 1.2840.114 350.1.13.10 4.2.7.2.686 [id number] [facility] 2021-10-10 09:00:00 2021-10-10 10:13:55 Office Visit Lida Howard [facility] 1.2840.114 350.1.13.10 4.2.7.2.686 [id number] [facility] 2021-10-10 09:00:00 2021-10-10 10:13:55 Outpatient R LIDA HOWARD [facility] [id number] [facility] Results Test Description Test Time Test Comments Results Result Co mments Source Maria Isabel Stanton RBC: 2 [id number] 11:55:04* Test Item Value Reference Range Interpretation Comme nts Product Code (test code = 25) [id number] Unit Number (test code = 1624) [id number] Unit ABO (test code = 8702072) O Unit RH (test code = 1924196) POS Crossmatch (test code = 6564171) Compatible Dispense Status (test code = 1623) Issued Blood Expiration Date (test code = 530) Product Blood Type (test code = 532) Unit Volume (test code = 1322-7) 300 mL 2 units RBCs available. KLS notified Cecilia 03/25/2024 1154. [facility] Jose D Stanton Packed RBC (in units), 1 [id number] 22:14:08* Test Item Value Reference Range Interpretation Comme nts Cross Match Result (test code = 4409) Compatible ISBT Blood Type Code (test code = 003438) 5100 Unit Blood Type (test code = 4410) O Pos Unit Number (test code = 4411) [id number] Blood Expiration Date & Time (test code = 278001) 529902246642 Status Information (test code = 4412) Issued Product Identification (test code = 4413) Red Blood Cells Product Code (test code = 4414) [id number] Performed at [facility] B Laboratory Services - ADC Blood [address] [place] [phone] Free: [phone] No. [id number] [facility] [id number] 21:32:56* Test Item Value Reference Range Interpretation Comme nts WBC (test code = 6690-2) 6.80 4.30-11.10 RBC (test code = 789-8) 2.88 3.93-5.25 L HGB (test code = 718-7) 4.9 g/dL 11.6-15.0 LL HCT (test code = 4544-3) 18.2 % 35.7-45.2 L MCV (test code = 787-2) 63.2 fL 80.6-95.5 L MCH (test code = 785-6) 17.0 pg 25.9-32.8 L MCHC (test code = 786-4) 26.9 g/dL 31.6-35.1 L RDW-SD (test code = 14317-2) 47.9 fL 39.0-49.9 RDW-CV (test code = 788-0) 22.1 % 12.0-15.5 H PLT (test code = 777-3) 533 166-358 H MPV (test code = 60306-5) 9.5 fL 9.5-12.9 GRAN MAT (NEUT) % (test code = 770-8) 71.0 % IMM GRAN % (test code = 3812107587) 0.40 % LYMPH % (test code = 736-9) 19.1 % MONO % (test code = 5905-5) 7.9 % EOS % (test code = 713-8) 0.9 % BASO % (test code = 706-2) 0.7 % GRAN MAT x10^3(ANC) (test code = 1528649440) 4.82 10*3/uL 1.88-7.09 IMM GRAN x10^3 (test code = 7943047066) 0.03 10*3/uL 0.00-0.06 LYMPH x10^3 (test code = 731-0) 1.30 10*3/uL 1.32-3.29 L MONO x10^3 (test code = 742-7) 0.54 10*3/uL 0.33-0.92 EOS x10^3 (test code = 711-2) 0.06 10*3/uL 0.03-0.39 BASO x10^3 (test code = 704-7) 0.05 10*3/uL 0.01-0.07 BASO STIPPLING (test code = 703-9) Present A ELLIPTO/OVAL (test code = 12476-8) 2+ See_Comment A [Automated messa ge] The system which generated this result transmitted reference range: (none). The reference range was not used to interpret this result as normal/abnormal. Lab Interpretation (test code = 61327-3) [facility] (71398)2024-02-06 21:03:54* Test Item Value Reference Range Interpretation Comme nts NA (test code = 1372675112) 136 mmol/L 135-145 K (test code = 3878720986) 3.6 mmol/L 3.5-5.0 CL (test code = 8885385158) 102 mmol/L 98-108 CO2 TOTAL (test code = 0350521898) 26 mmol/L 23-31 AGAP (test code = 2838799426) 8 2-16 BUN (test code = 2144976776) 11 mg/dL 7-23 GLUCOSE (test code = 0082560466) 92 mg/dL 70-110 CREATININE (test code = 2160-0) 0.67 mg/dL 0.50-1.04 TOTAL BILI (test code = 6690817297) 0.4 mg/dL 0.1-1.1 CALCIUM (test code = 8548906637) 8.6 mg/dL 8.6-10.6 T PROTEIN (test code = 2911788719) 7.6 g/dL 6.3-8.2 ALBUMIN (test code = 4903849922) 4.3 g/dL 3.5-5.0 ALK PHOS (test code = 4784293842) 82 U/L 34-122 ALTv (test code = 1742-6) 11 U/L 5-35 AST(SGOT) (test code = 8579179227) 42 U/L 13-40 H eGFR (test code = 91484-0) 110.0 mL/min/1.73m2 CKD-EPI eGFR (2020). Assuming creatinine has been stable day-to-day for at least three months, the eGFR indicates Category G1 (>= 90 mL/min/1.73 m2) Lab Interpretation (test code = 60667-6) Abnormal [facility] [id number] 00:00:00* Test Item Value Reference Range Interpretation Comme nts Colonoscopy (test code = 97) Normal Normal Radiology Study observation (narrative) (test code = 51367-7) [facility] Packed RBC (in units), 1 [id number] 19:48:29* Test Item Value Reference Range Interpretation Comme nts Cross Match Result (test code = 4409) Compatible ISBT Blood Type Code (test code = 425053) Unit Blood Type (test code = 4410) O Pos Unit Number (test code = 4411) [id number] Blood Expiration Date & Time (test code = 944042) Status Information (test code = 4412) Issued Product Identification (test code = 4413) Red Blood Cells Product Code (test code = 4414) [id number] Performed at [facility] Laboratory [facility] Blood [place] [address]Toll Free: [phone] No. [id number] [facility] (Lab Only)2022-03-01 19:31:50* Test Item Value Reference Range Interpretation Comme nts ABO & RH (test code = 20) O Positive Performed at [facility] Laboratory [facility] Blood [place] [address]Toll Free: [phone] No. [id number] [facility] and Screen - ONCE [id number] 19:00:09 * Test Item Value Reference Range Interpretation Comme nts ABO & RH (test code = 20) O Positive Performed at [facility] Blood [place] [address]Toll Free: [phone] No. [id number] IAT (test code = 1185) Negative Performed at [facility] Blood [place] [address]Toll Free: [phone] No. [id number] [facility] WITH [id number] 18:03:42* Test Item Value Reference Range Interpretation [...] g/dL 31.6-35.1 L RDW-SD (test code = 01294-5) 41.9 fL 39.0-49.9 RDW-CV (test code = 788-0) 16.9 % 12.0-15.5 H PLT (test code = 777-3) See_Comment H [Automated messa ge] The system which generated this result transmitted reference range: 166 - 358 10*3/?L. The reference range was not used to interpret this result as normal/abnormal. MPV (test code = 21077-0) 10.4 fL 9.5-12.9 NRBC/100 WBC (test code = 6667032565) See_Comment [Automated Dime ssage] The system which generated this result transmitted reference range: 0.0 - 10.0 /100 WBCs. The reference range was not used to interpret this result as normal/abnormal. NRBC x10^3 (test code = 4095694935) See_Comment [Automated messa ge] The system which generated this result transmitted reference range: 10*3/?L. The reference range was not used to interpret this result as normal/abnormal. GRAN MAT (NEUT) % (test code = 770-8) 65.9 % IMM GRAN % (test code = 5359619248) 0.60 % LYMPH % (test code = 736-9) 23.2 % MONO % (test code = 5905-5) 8.4 % EOS % (test code = 713-8) 1.3 % BASO % (test code = 706-2) 0.6 % GRAN MAT x10^3(ANC) (test code = 1919903913) 3.55 10*3/uL 1.88-7.09 IMM GRAN x10^3 (test code = 7601168732) 0.03 10*3/uL 0.00-0.06 LYMPH x10^3 (test code [...] result as normal/abnormal. ELLIPTO/OVAL (test code = 67460-7) 2+ See_Comment A [Automated messa ge] The system which generated this result transmitted reference range: (none). The reference range was not used to interpret this result as normal/abnormal. POLYCHROMASIA (test code = 07808-9) 2+ See_Comment [Automated messa ge] The system [...] as normal/abnormal. Lab Interpretation (test code = 77285-9) Abnormal [facility]. METABOLIC PANEL (63710)2022-03-01 17:34:25* Test Item Value Reference Range Interpretation Comme nts NA (test code = 3987227052) 138 mmol/L 135-145 K (test code = 1386952160) 4.5 mmol/L 3.5-5.0 CL (test code = 4747418035) 106 mmol/L 98-108 CO2 TOTAL (test code = 9893508266) 26 mmol/L 23-31 AGAP (test code = 2598604309) 2-16 BUN (test code = 1527720892) 12 mg/dL 7-23 GLUCOSE (test code = 8834583660) 95 mg/dL 70-110 CREATININE (test code = 6994464181) 0.66 mg/dL 0.50-1.04 TOTAL BILI (test code = 5114745977) 0.6 mg/dL 0.1-1.1 CALCIUM (test code = 5094199047) 8.3 mg/dL 8.6-10.6 L T PROTEIN (test code = 8460686126) 7.3 g/dL 6.3-8.2 ALBUMIN (test code = 1649324315) 4.3 g/dL 3.5-5.0 ALK PHOS (test code = 2368396638) 74 U/L 34-122 ALTv (test code = 1742-6) 11 U/L 5-35 AST(SGOT) (test code = 6722273510) 37 U/L 13-40 eGFR (test code = 9038176000) mL/min/1.73m2 MOUNIKA (test code = MOUNIKA) Association [...] imaging tests). Lab Interpretation (test code = 57840-6) Abnormal [facility], [id number] 17:31:48* Test Item Value Reference Range Interpretation Comme nts PREG SERUM (test code = 6234441044) Negative MOUNIKA (test code = MOUNIKA) Less than 10 IU/L. ?If low titer or ectopic is suspected, resubmit specimen in 48-72 hours. [facility] History and Physical Notes Date/Time Note Provider Source 2024-03-25 11:15:29 Consults Chief Complaint Fatigue, shortness of breath History Of Present Illness Allan Pollack is a 43 y.o. female who presented to the ED this morning with approximately 1 week of shortness of breath and fatigue. She has long-standing iron deficiency anemia for which she is followed in the [facility] [place] [facility] as well as by a budget coordinator. She recently underwent comprehensive workup for her anemia including hemoglobin electrophoresis (normal) and iron studies which showed low iron stores (total iron 12, UIBC 451, TIBC 463, iron saturation 3%, ferritin 2) in November 2023. She has been recommended for IV iron infusions but has not been able to receive this treatment due to issues with insurance coverage. She last underwent red blood cell transfusion 1 month ago at a [facility]aff[facility] clinic in [place]. It appears that based on her most recent outpatient labs from [facility], her baseline hemoglobin is around 7 g/dL. The etiology of her iron deficiency is unclear but she has been told by her animal nutrition consultant that it is not due to menorrhagia (she has regular menses; LNMP yesterday); she has also undergone endoscopic evaluation with EGD and colonoscopy (prior EGD reported gastric erosions, esophagitis and Schatzki ring; colonoscopy unremarkable). Past Medical History She has no past medical history on file. Surgical History She has no past surgical history on file. Family History No family history on file. Social History She has no history on file for tobacco use, alcohol use, and drug use. Allergies Hydrocodone Medications Medications Prior to Admission Medication Sig Dispense Refill Last Dose/Taking citalopram (CeleXA) 20 MG tablet Take 1 tablet by mouth 1 time each day. 90 tablet 1 famotidine (Pepcid) 40 MG tablet Take 1 tablet by mouth 1 time each day. 90 tablet 1 pantoprazole (ProtoNix) 40 MG EC tablet Take 40 mg by mouth daily as needed (heartburn). Do not crush, chew, or split. Review of Systems Constitutional: Positive for fatigue. Negative for activity change, chills, diaphoresis, fever and unexpected weight change. Respiratory: Positive for shortness of breath. Negative for apnea, chest tightness and wheezing. Cardiovascular: Negative for chest pain and palpitations. Gastrointestinal: Negative for abdominal distention, abdominal pain, constipation, diarrhea, nausea and vomiting. Musculoskeletal: Negative for arthralgias. Neurological: Negative for dizziness, weakness and numbness. Psychiatric/Behavioral: Negative for agitation and confusion. Last Recorded Vitals Blood pressure 113/69, pulse 72, temperature 36.8 ?C (98.3 ?F), temperature source Oral, resp. rate 17, height 1.524 m (5'), weight 83.9 kg (185 lb), SpO2 97%. Physical Exam: Relevant Results I personally reviewed recent lab and imaging results which are notable for acute on chronic anemia (Hgb 4.5) Assessment & Plan Symptomatic anemia Acute on chronic iron deficiency anemia - CBC on admission shows hemoglobin of 4.5 (MCV 60.9) against a known baseline of ~7. Patient receives periodic transfusions (last received approximately 1 month ago in the outpatient setting at [facility]--records from that visit are unavailable for review at this time) - Transfuse with 2U pRBC; follow-up repeat CBC post-transfusion - Maintain active type and screen, large bore IV x 2 - Continue with home Protonix (takes as needed for heartburn) Current Diet: Adult Diet Regular VTE Prophylaxis This patient does not have an active medication from one of the medication groupers. Disposition Admit to med/surg floor Chele Martínez DO [facility] Medicine EKEEPING SUPERVISOR EKEEPING SUPERVISOR [facility] Notes Date/Time Note Provider Source Referral ID Status Reason Start Date Expiration Date Visits Requested Visits Authorized [id number] Authorized Specialty Services Required 06/06/2024 12/03/2024 1 12 EKEEPING SUPERVISOR [facility] [id number] 20:34:26 [place] [id number] 20:34:26Scheduled Referrals Health Maintenance Due Date Last Done Comments CT Colonography 1978 FIT-DNA 1978 FIT 1978 FOBT 1978 Lipid Panel 1978 Sigmoidoscopy 1978 DTaP/Tdap/Td Vaccines (1 - Tdap) 1997 Hepatitis B Vaccines (1 of 3 - 19+ 3-dose series) 1997 HPV/Cotest 2008 Annual Physical 10/31/2024 11/01/2023 Influenza Vaccine (Season Ended) 2024 Mammogram 11/11/2025 11/12/2023, 11/12/2023, 11/12/2023 Cervical Cancer Screening 10/31/2026 Pap Smear 10/31/2026 11/01/2023 Colonoscopy 04/02/2032 04/02/2022 Colorectal Cancer Screening 04/02/2032 Respiratory Syncytial Virus (RSV) Adult Series (1 - 1-dose 75+ series) 2053 HIB Vaccines Aged Out No longer eligi ble based on patient's age to complete this topic HPV Vaccines Aged Out No longer eligi ble based on patient's age to complete this topic Hepatitis A Vaccines Aged Out No long er eligible based on patient's age to complete this topic IPV Vaccines Aged Out No longer eligi ble based on patient's age to complete this topic Meningococcal Vaccine Aged Out No billie ezequiel eligible based on patient's age to complete this topic Pneumococcal Vaccine: Pediatrics (0 to 5 Years) and At-Risk Patients (6 to 64 Years) Aged Out No longer eligible b ased on patient's age to complete this topic Rotavirus Vaccines Aged Out No longer eligible based on patient's age to complete this topic [facility] [id number] 20:34:26 Diagnosis Hx of iron deficiency anemia - Primary [facility] [id number] 20:34:26 [facility] 20:40:21 [facility]Otqngpz7736-97-11 20:40:21* Over the past 2 weeks, how often have you been bothered by any of the following problems? Question Answer Date of Assessment Author Patient Health Questionnaire-2 Score 0 08/2024 10:52 AM HOUSEKEEPING SUPERVISOR Mychart, Generic * Little interest or pleasure in doing things Answer Date of Assessment Author Not at all 06/05/2024 10:52 AM HOUSEKEEPING SUPERVISOR Mychart, Generic * Feeling down, depressed, or hopeless Answer Date of Assessment Author Not at all 06/05/2024 10:52 AM HOUSEKEEPING SUPERVISOR Mychart, Generic [facility] [id number] 20:40:21 [facility]Ciirmgm5344-29-20 20:40:21 [facility]Yvwbvuu8009-43-85 11:26:43* Consultation (Routine) - Pending Review Specialty Diagnoses / Procedures Referred By Mini eldridge Referred To Contact Gastroenterology Diagnoses Hemorrhoids, unspecified hemorrhoid type Procedures CA OFFICE/OUTPATIENT NEW HIGH MDM 60 MINUTES Chloe Leo NP [address] [place] [address] Phone: tel: fax: Referral ID Status Reason Start Date Expiration Date Visits Requested Visits Authorized [id number] Pending Review Specialty Services Required 06/05/2024 12/02/2024 1 1 EKEEPING SUPERVISOR [facility]Qyjluuy2907-70-79 11:26:43* [facility] [id number] 11:26:43 [id number] 11:26:43* Over the past 2 weeks, how often have you been bothered by any of the following problems? 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 female who presents for States would like Labs . HPI Iron Deficiency Anemia: Has been starting to feel more fatigued. Did not see budget coordinator. Has bleeding hemorrohoids and menses Has not been on iron supplementation x 2 years Hemorrhoids: worse when constipated. Would like to be considered for hemorrhoid removal Review of Systems Constitutional Symptoms: no fever, no weight changes, +fatigue Head/Face: no facial/sinus pain Ears, Nose, Mouth, Throat: no sore throat or ear pain Cardiovascular: no chest pain Respiratory: no cough/SOB/sputum production Gastrointestinal: no NVD, no abdominal pain Musculoskeletal: no arthralgia, no myalgia, no stiffness Psychiatric: no anxiety, no depression, no insomnia All others reviewed and negative except as in HPI Current Outpatient Medications Medication Instructions famotidine (PEPCID) 40 mg, Oral, Daily hydroCHLOROthiazide (HYDRODIURIL) 25 mg, Oral, Daily PRN sertraline (Zoloft) 25 MG tablet 1 tablet, Daily 630 History reviewed. No pertinent surgical history. Objective Physical Exam: Assessment & Plan Iron deficiency anemia due to chronic blood loss Orders: Complete Blood Count w/Diff and Platelet; Future Iron + transferrin + TIBC; Future Slow transit constipation Hemorrhoids, unspecified hemorrhoid type Orders:Ambulatory referral to Colorectal Surgery; Future EKEEPING SUPERVISOR * Chloe Leo NP - 06/05/2024 11:00 AM HOUSEKEEPING SUPERVISOR Subjective Patient ID: Allan Pollack is a 43 y.o. female who presents for States would like Labs . HPI Iron deficiency anemia: Complains of daily fatigue which has been getting worse and wanted to come and get her blood count checked. Has not been taking iron for over 2 years. Continues to have menstrual cycles. Had been seeing budget coordinator over a year ago but there was issue with insurance coverage regarding iron infusion. Hemorrhoids: +bleeding hemorrohoids would like to see specialist to be considered for removal. Symptoms worse when she is more constipated Review of Systems Constitutional Symptoms: no fever, no weight changes, +fatigue Head/Face: no facial/sinus pain Ears, Nose, Mouth, Throat: no sore throat or ear pain Cardiovascular: no chest pain Respiratory: no cough/SOB/sputum production Gastrointestinal: no NVD, no abdominal pain Musculoskeletal: no arthralgia, no myalgia, no stiffness Psychiatric: no anxiety, no depression, no insomnia All others reviewed and negative except as in HPI Current Outpatient Medications Medication Instructions famotidine (PEPCID) 40 mg, Oral, Daily hydroCHLOROthiazide (HYDRODIURIL) 25 mg, Oral, Daily PRN sertraline (Zoloft) 25 MG tablet 1 tablet, Daily 630 History reviewed. No pertinent surgical history. Objective Physical Exam: Blood pressure 102/71, pulse 67, temperature 36.9 ?C (98.5 ?F), temperature source Oral, resp. rate 16, height 1.524 m (5'), weight 84.8 kg (187 lb), last menstrual period 06/02/2024, SpO2 100%. General Appearance: Well appearing, well developed, well nourished, well hydrated, good color, and in no acute distress Head: Normocephalic atraumatic Eyes: PERRLA. +pallor Mouth: Moist mucous membranes Chest Wall: No retractions Lungs: CTA bilaterally, no wheezes/rales/rhonchi, and good air entry Heart: Regular rate and regular rhythm, no murmur Musculoskeletal: No obvious deformity. Moves all 4 extremities, stable gait. Neurologic: Alert/appropriate, normal strength, normal tone. Clear speech, aao x 3. Psych: Mood congruent affect, responds appropriately to questions. Assessment & Plan Iron deficiency anemia due to chronic blood loss Patient looks anemic today. Has not been taking any supplemental iron, has not been seeing budget coordinator as urged to in the past. Will get blood count and iron studies today ER warnings if worsening fatigue, dizziness, chest pain, severe headache Orders: Complete Blood Count w/Diff and Platelet; Future Iron + transferrin + TIBC; Future Slow transit constipation Increase fluids and fiber Hemorrhoids, unspecified hemorrhoid type Refer to GI to be considered for hemorrhoid removal Orders: Ambulatory referral to Colorectal Surgery; Future EKEEPING SUPERVISOR [facility] [id number] 11:26:43Scheduled Orders Scheduled Referrals Name Type Priority Associated Diagnoses Orde r Schedule Ambulatory referral to Colorectal Surgery Outpatient Referral Routine Hemorrhoids, unspecified hemorrhoid type Expected: 06/05/2024 (Approximate), Expires: 06/05/2025 Health Maintenance Due Date Last Done Comments CT Colonography 1978 FIT-DNA 1978 FIT 1978 FOBT 1978 Lipid Panel 1978 Sigmoidoscopy 1978 DTaP/Tdap/Td Vaccines (1 - Tdap) 1997 Hepatitis B Vaccines (1 of 3 - 19+ 3-dose series) 1997 HPV/Cotest 2008 Influenza Vaccine (#1) 2024 Postp oned from 12/02/2023 (Patient Refused) Annual Physical 10/31/2024 11/01/2023 Mammogram 11/11/2025 11/12/2023, 11/12/2023, 11/12/2023 Cervical Cancer Screening 10/31/2026 Pap Smear 10/31/2026 11/01/2023 Colonoscopy 04/02/2032 04/02/2022 Colorectal Cancer Screening 04/02/2032 HIB Vaccines Aged Out No longer eligi ble based on patient's age to complete this topic HPV Vaccines Aged Out No longer eligi ble based on patient's age to complete this topic Hepatitis A Vaccines Aged Out No long er eligible based on patient's age to complete this topic IPV Vaccines Aged Out No longer eligi ble based on patient's age to complete this topic Meningococcal Vaccine Aged Out No billie ezequiel eligible based on patient's age to complete this topic Pneumococcal Vaccine: Pediatrics (0 to 5 Years) and At-Risk Patients (6 to 64 Years) Aged Out No longer eligible b ased on patient's age to complete this topic Rotavirus Vaccines Aged Out No longer eligible based on patient's age to complete this topic [facility] [id number] 11:26:43 Diagnosis Iron deficiency anemia due to chronic blood loss - Primary Iron deficiency anemia secondary to blood loss (chronic) Slow transit constipation Hemorrhoids, unspecified hem orrhoid type [facility] [id number] 11:26:43 [facility] [id number] 17:11:34* Consultation (Routine) - Pending Review Specialty Diagnoses / Procedures Referred By Mini eldridge Referred To Contact Psychiatry Diagnoses Attention and concentration deficit Procedures CA OFFICE/OUTPATIENT NEW HIGH MDM 60 MINUTES Chloe Leo NP [address] [place] [address] Phone: tel: fax: Referral ID Status Reason Start Date Expiration Date Visits Requested Visits Authorized [id number] Pending Review Specialty Services Required 04/03/2024 09/30/2024 1 1 EKEEPING SUPERVISOR [facility] [id number] 17:11:34* [facility] [id number] 17:11:34 [facility] [id number] 17:11:34* Chloe Leo NP - 04/03/2024 4:00 PM HOUSEKEEPING SUPERVISOR Subjective Patient ID: Allan Pollack is a 43 y.o. female who presents for follow up from hospital visit (Iron ) and Referral (To get on something to help her focus at work ). HPI Here to follow up ER visit 03/25/24 for symptomatic anemia and was given 3 units of blood and an iron infusion Iron deficiency anemia: Despite oral iron use. Had been seeing budget coordinator but there was issue with insurance coverage regarding iron infusion. Called them today to give them her new insurance information for appt Lower extremity edema: Patient complaining of swelling of lower extremities more toward the end of the day. Usually when she wakes up her swelling has resolved. Would like a medication she can use as needed for lower extremity edema Attention issues: Would like referral to psychiatrist for med to help her focus Review of Systems Constitutional Symptoms: no fever, no weight changes, +fatigue Head/Face: no facial/sinus pain Ears, Nose, Mouth, Throat: no sore throat or ear pain Cardiovascular: no chest pain Respiratory: no cough/SOB/sputum production Gastrointestinal: no NVD, no abdominal pain Musculoskeletal: no arthralgia, no myalgia, no stiffness Psychiatric: no anxiety, no depression, no insomnia All others reviewed and negative except as in HPI Current Outpatient Medications Medication Instructions cefpodoxime (Vantin) 200 MG tablet TAKE ONE (1) TABLET(S) BY MOUTH EVERY TWELVE HOURS FOR 10 DAYS. citalopram (CELEXA) 20 mg, Oral, Daily ferrous sulfate 325 mg, Oral, Daily with breakfast hydroCHLOROthiazide (HYDRODIURIL) 25 mg, Oral, Daily PRN pantoprazole (PROTONIX) 40 mg, Daily PRN Objective Physical Exam: Blood pressure 103/70, pulse 78, temperature 37.3 ?C (99.2 ?F), temperature source Oral, height 1.524 m (5'), weight 86.7 kg (191 lb 3.2 oz), SpO2 97%. General Appearance: Well appearing, well developed, well nourished, well hydrated, good color, and in no acute distress Head: Normocephalic atraumatic Eyes: PERRLA with mild pallor noted Mouth: Moist mucous membranes Chest Wall: No retractions Lungs: CTA bilaterally, no wheezes/rales/rhonchi, and good air entry Heart: Regular rate and regular rhythm, no murmur Musculoskeletal: No obvious deformity. Moves all 4 extremities, stable gait. Neurologic: Alert/appropriate, normal strength, normal tone. Clear speech, aao x 3. Psych: Mood congruent affect, responds appropriately to questions. Assessment & Plan Other iron deficiency anemia Advised to follow-up with her budget coordinator and make sure she gets an appointment so she may start iron infusions to prevent ER visits Labs below pending Orders: Iron + transferrin + TIBC; Future Complete Blood Count w/Diff and Platelet; Future Bilateral lower extremity edema Advised that lower extremity edema is more common with severe anemia and likely will improve if overall anemia improves Advised to use compression stockings, lower sodium diet, adequate fluids and walking for exercise Orders: hydroCHLOROthiazide (HYDRODiuril) 25 MG tablet; Take 1 tablet by mouth daily as needed (lower extremity edema). Attention and concentration deficit Will refer to psychiatry per patient request. Advised that likely being severely anemic can greatly affect her energy and attention Orders: Ambulatory referral to Psychiatry; Future As the patient's primary care provider, will add G2211 as an additional CPT code to account for the long-term, comprehensive, longitudinal care of complex medical conditions addressed during this visit and requiring review of historical medical records including, but not limited to, specialist records, laboratory testing, imaging, and coordination of care with specialists. Return to clinic 6 months or sooner if needed EKEEPING SUPERVISOR [facility] [id number] 17:11:34Scheduled Orders Scheduled Referrals Name Type Priority Associated Diagnoses Orde r Schedule Ambulatory referral to Psychiatry Outpatient Referral Routine Attention and concentration deficit Expected: 04/03/2024 (Approximate), Expires: 04/03/2025 Health Maintenance Due Date Last Done Comments CT Colonography 1978 FIT-DNA 1978 FIT 1978 FOBT 1978 Lipid Panel 1978 Sigmoidoscopy 1978 DTaP/Tdap/Td Vaccines (1 - Tdap) 1997 Hepatitis B Vaccines (1 of 3 - 19+ 3-dose series) 1997 HPV/Cotest 2008 Influenza Vaccine (#1) 2023 Annual Physical 10/31/2024 11/01/2023 Mammogram 11/11/2025 11/12/2023, 11/12/2023, 11/12/2023 Cervical Cancer Screening 10/31/2026 Pap Smear 10/31/2026 11/01/2023 Colonoscopy 04/02/2032 04/02/2022 Colorectal Cancer Screening 04/02/2032 HIB Vaccines Aged Out No longer eligi ble based on patient's age to complete this topic HPV Vaccines Aged Out No longer eligi ble based on patient's age to complete this topic Hepatitis A Vaccines Aged Out No long er eligible based on patient's age to complete this topic IPV Vaccines Aged Out No longer eligi ble based on patient's age to complete this topic Meningococcal Vaccine Aged Out No billie ezequiel eligible based on patient's age to complete this topic Pneumococcal Vaccine: Pediatrics (0 to 5 Years) and At-Risk Patients (6 to 64 Years) Aged Out No longer eligible b ased on patient's age to complete this topic Rotavirus Vaccines Aged Out No longer eligible based on patient's age to complete this topic [facility] [id number] 17:11:34 Diagnosis Other iron deficiency anemia - Primary Bilateral lower extremity ed clif Attention and concentration deficit [facility] [id number] 17:11:34 [facility] [id number] 16:23:03 Images from the original note were not included. [id number] Leg Swelling in Both Legs Swelling of the feet, ankles, and legs is called edema. It's caused by extra fluid that has collected in the tissues. Extra fluid in the body settles in the lowest part because of gravity. This is why the legs and feet are most affected. Some of the causes for edema include: ? Disease of the heart, such as congestive heart failure ? Standing or sitting for long periods of time ? Infection of the feet or legs ? Blood pooling in the veins of your legs (venous insufficiency) when the veins have less elasticity ? Dilated veins in your lower leg (varicose veins) ? Poor drainage of the lymphatic system ? Some medicines, including some hormones such as control pills, some blood pressure medicines such as calcium channel blockers, steroids, and some antidepressants such as MAO inhibitors and tricyclics ? Menstrual periods that cause you to retain fluids ? Many types of kidney disease ? Liver failure or cirrhosis ? , in which some swelling is normal, but a sudden increase in leg swelling or weight gain can be a sign of a dangerous complication of called eclampsia ? Poor nutrition ? Thyroid disease Treatment will depend on what is causing the swelling in your legs. Your healthcare provider may prescribe water pills (diuretics) to get rid of the extra fluid. Home care Follow these guidelines when caring for yourself at home: ? Keep your legs up while lying or sitting. ? If infection, injury, or recent surgery is causing the swelling, stay off your legs as much as possible until symptoms get better. ? If your healthcare provider says that your leg swelling is caused by venous insufficiency or varicose veins, don't sit or spring salvage worker one place for long periods of time. Take breaks and walk about every few hours. Brisk walking is a good exercise. It helps circulate the blood that has collected in your leg. Talk with your provider about using support stockings to stop daytime leg swelling. ? If your provider says that heart disease is causing your leg swelling, follow a low-salt diet to stop extra fluid from staying in your body. You may also need medicine. Follow-up care Follow up with your healthcare provider, or as advised. When to get medical advice Call your healthcare provider right away if any of these occur: ? Swelling in both legs or ankles that gets worse ? Belly (abdominal) swelling ? Redness, warmth, or swelling in 1 leg ? Fever of 100.4?F (38?C) or higher, or as advised by your provider ? Yellow color to your skin or eyes ? Rapid, unexplained weight gain ? Having to sleep upright or use more pillows Call 911 Call 911 or get medical care right away if you have: ? New shortness of breath or chest pain ? Worsening shortness of breath or chest pain? Last Reviewed Date: 2021 00:00:00 ? [id number] [employer]. All rights reserved. This information is not intended as a substitute for professional medical care. Always follow your healthcare professional's instructions. [facility]2024-12-25 17:27:57* Consultation (Routine) - Pending Review Specialty Diagnoses / Procedures Referred By Mini eldridge Referred To Contact Hepatology Diagnoses Symptomatic anemia Hx of iron deficiency anemia Procedures CA OFFICE/OUTPATIENT NEW HIGH MDM 60-[place] [address] [place] [address] Phone: tel: fax: Referral ID Status Reason Start Date Expiration Date Visits Requested Visits Authorized [id number] Pending Review Specialty Services Required 09/22/2024 1 1 [facility]2024-12-25 17:27:57* * Auth/Cert (Routine) Specialty Diagnoses / Procedures Referred By Mini eldridge Referred To Contact Diagnoses Symptomatic anemia Procedures FAXED MANUALLY TO [phone] AND RECEIVED CONFIRMATION. [place] [address] [place] [address] Phone: tel: fax: [facility] [phone] [facility] [place] [address] Phone: tel: fax: Referral ID Status Reason Start Date Expiration Date Visits Re quested Visits Authorized [id number] 1 1 [facility] [id number] 17:27:57 [facility] [id number] 17:27:57* Audit-C Score Answer Date of Assessment Author -1 03/25/2024 1:18 PM Sa dickson Fountain RN * Intimate Partner Violence Question Answer Date of Assessment Author Within the last year, have y ou been humiliated or emotionally abused in other ways by your partner or ex-partner? No 03/25/2024 1:18 PM Lazaro Waters RN Within the last year, have y ou been afraid of your partner or ex-partner? No 03/25/2024 1:18 PM Lazaro Fountain RN Within the last year, have y ou been raped or forced to have any kind of sexual activity by your partner or ex-partner? No 03/25/2024 1:18 PM Lazaro Hensley RN Within the last year, have y ou been kicked, hit, slapped, or otherwise physically hurt by your partner or ex-partner? No 03/25/2024 1:18 PM Lazaro Fountain RN * * Calculated C-SSRS Risk Score (Lifetime/Recent) Answer Date of Assessment Author No Risk Indicated 03/25/2024 9:29 AM Kindra Richmond RN * [place] Suicide Severity Rating Scale (Screener/Recent Self-Report) Question Answer Date of Assessment Author 1. Wish to be (Past 1 Month) No 024 9:29 AM Kindra Richmond RN 2. Non-Specific Active Suici aleah Thoughts (Past 1 Month) No 03/25/2024 9:29 AM Narinder Richmond RN 6. Suicidal Behavior (Lifetime) No 9:29 AM Kindra Richmond RN [facility] ClubPajuemo9825-02-07 17:27:57Scheduled Orders Scheduled Referrals Name Type Priority Associated Diagnoses Order Schedule Ambulatory referral to Hepatology Outpatient Referral Routine Symptomatic anemia Hx of iron deficiency anemia Expected: 03/26/2024 (Approximate), Expires: 03/26/2025 Health Maintenance Due Date Last Done Comments CT Colonography 1978 FIT-DNA 1978 FIT 1978 FOBT 1978 Lipid Panel 1978 Sigmoidoscopy 1978 DTaP/Tdap/Td Vaccines (1 - Tdap) 1997 Hepatitis B Vaccines (1 of 3 - 19+ 3-dose series) 1997 HPV/Cotest 2008 Influenza Vaccine (#1) 2023 Annual Physical 10/31/2024 11/01/2023 Mammogram 11/11/2025 11/12/2023, 11/12/2023, 11/12/2023 Cervical Cancer Screening 10/31/2026 Pap Smear 10/31/2026 11/01/2023 Colonoscopy 04/02/2032 04/02/2022 Colorectal Cancer Screening 04/02/2032 HIB Vaccines Aged Out No longer eligi ble based on patient's age to complete this topic HPV Vaccines Aged Out No longer eligi ble based on patient's age to complete this topic Hepatitis A Vaccines Aged Out No long er eligible based on patient's age to complete this topic IPV Vaccines Aged Out No longer eligi ble based on patient's age to complete this topic Meningococcal Vaccine Aged Out No billie ezequiel eligible based on patient's age to complete this topic Pneumococcal Vaccine: Pediatrics (0 to 5 Years) and At-Risk Patients (6 to 64 Years) Aged Out No longer eligible b ased on patient's age to complete this topic Rotavirus Vaccines Aged Out No longer eligible based on patient's age to complete this topic [id number] 17:27:57 Diagnosis Symptomatic anemia - Primary Symptomatic anemia Hx of iron deficiency anemia Hx of iron deficiency anemia Simple obesity Obesity, unspecified Body mass index 36.0-36.9, adult Body Mass Index 36.0-36.9, adult [facility] [id number] 17:27:57 [place] [id number] 17:25:06 Discharge instructions: Patient discharged home, gave handouts and verbally educated on S&S of anemia and . Gave the patient hygiene kit, patient verbalized understanding and follow up appointment with a budget coordinator soon. Patient is stable at discharge. Patient escorted safely to private vehicle by RN. [facility]2024-12-25 17:03:07 The patient is Moderately Stable - Low risk of patient condition declining or worsening [place] [id number] 15:50:14 Images from the original note were not included. Anemia - Video Anemia means a low level of hemoglobin in the blood. It can be brought on by chronic disease, including inflammatory, infectious, or malignant conditions. This video gives information on the chronic diseases linked to anemia and recommended treatment. To view the video go to this web address: [email or web address] Or, scan this QR code with your smart phone Last Reviewed Date: 2020 00:00:00 ? The [employer]. All rights reserved. This information is not intended as a substitute for professional medical care. Always follow your healthcare professional's instructions. [facility]2024-12-25 15:40:55 The patient is Moderately Stable - Low risk of patient condition declining or worsening [facility]2024-12-25 09:30:52 The patient is Moderately Stable - Low risk of patient condition declining or worsening [place] [id number] 03:21:14 The patient is Moderately Stable - Low risk of patient condition declining or worsening The patient's goals for the shift include feel better The clinical goals for the shift include No falls, increases H/H [place] [id number] 13:44:57 The patient is Moderately Stable - Low risk of patient condition declining or worsening EKEEPING SUPERVISOR [facility] [id number] 09:22:00 Associated Order(s): Critical Care History of Present Illness: Chief Complaint: Patient presents with Shortness of Breath Patient reports increasing dizziness, sob, weakness x week. Pt pale in triage. PMH anemia. Patient presents emergency room with a complaint of shortness of breath and fatigue x 1 week. She has a history of chronic anemia is required frequent blood transfusions. She denies any abdominal pain with no vaginal bleeding or light stools. She states he has been worked up outpatient basis by hematology but have not found medical cause yet". She was recently seen at another facility and was given 1 unit of blood for a 6.5 hemoglobin. Today she feels like her fatigue and shortness of breath is getting worse headache she needs a blood transfusion. History provided by: Patient PMHx: chronic anemia, anxiety PSHx: None Social: Nicotine none, EtOH none, illicit drugs none Immunizations: Review of Systems: Review of Systems Reason unable to perform ROS: Fatigue and weakness. Respiratory: Positive for shortness of breath. Cardiovascular: Negative for chest pain. All other systems reviewed and are negative. Triage Vitals: BP: 141/79, Heart Rate: 100, Temp: 36.8 ?C (98.2 ?F), Resp: 22, SpO2: 100 %, Height: 152.4 cm (5'), Weight: 83.9 kg (185 lb) Physical Exam: Vitals reviewed. Cardiovascular: Rate and Rhythm: Regular rhythm. Tachycardia present. Pulmonary: Effort: Pulmonary effort is normal. Breath sounds: Normal breath sounds. Abdominal: General: Bowel sounds are normal. Palpations: Abdomen is soft. Tenderness: There is no abdominal tenderness. Musculoskeletal: General: Normal range of motion. Skin: Comments: She is pale appearing and has sluggish cap refill ED Course : Medical Decision Making Scoring Tools Hillman Coma Scale Score: 15 Labs Reviewed BASIC METABOLIC PANEL - Abnormal Result Value Glucose Lvl 95 BUN 8 (*) Creatinine Lvl 0.74 Sodium Lvl 142 Potassium Lvl 3.5 Chloride Lvl 107 CO2 Lvl 26.1 Anion Gap 12.4 Calcium Lvl 8.5 eGFR 102 COMPLETE BLOOD COUNT - Abnormal WBC 5.37 RBC 2.94 (*) NRBC % 0.0 Hgb 4.5 (*) Hct 17.9 (*) MCV 60.9 (*) MCH 15.3 (*) MCHC 25.1 (*) RDW - SD 47.8 Plt Count 340 MPV 9.5 AUTOMATED DIFFERENTIAL - Abnormal Segs % 72.6 (*) Lymphs % 16.4 Monos % 8.0 Eos % 2.0 Basos % 0.4 Immature Grans % 0.6 Segs # 3.90 Lymphs # 0.88 (*) Monos # 0.43 Eos # 0.11 Basos # 0.02 Imm Grans # 0.03 PROTIME-INR - Normal Prothrombin Time (PT) 14.1 INR 1.07 COMPLETE BLOOD COUNT W/DIFF AND PLATELET Narrative: The following orders were created for panel order Complete Blood Count w/Diff and Platelet. Procedure Abnormality Status --------- ------ Complete Blood Count[] Abnormal Final result Automated Differential[] Abnormal Final result Please view results for these tests on the individual orders. TYPE AND SCREEN ABO Grouping O Rh Type Positive Antibody Screen Negative COMPLETE BLOOD COUNT (NO DIFF) PREPARE RBC Product Code [id number] Unit Number [id number] Unit ABO O Unit RH POS Crossmatch Compatible Dispense Status Crossmatched Blood Expiration Date Product Blood Type 5100 Unit Volume 338 Product Code [id number] Unit Number [id number] Unit ABO O Unit RH POS Crossmatch Compatible Dispense Status Crossmatched Blood Expiration Date Product Blood Type 5100 Unit Volume 300 No orders to display Procedures Performed: Critical Care Performed by: Herminio Jimenez NP Authorized by: Herminio Jimenez NP Comments: Procedures Performed: Critical Care Performed by: Herminio Jimenez NP Authorized by: Herminio Jimenez NP Critical care provider statement: Critical care time (minutes): 30 Critical care time was exclusive of: Separately billable procedures and treating other patients Critical care was necessary to treat or prevent imminent or life-threatening deterioration of the following conditions: Symptomatic anemia Critical care was time spent personally by me on the following activities: Obtaining history from patient or surrogate, evaluation of patient's response to treatment, discussions with consultants, development of treatment plan with patient or surrogate, ordering and performing treatments and interventions, ordering and review of laboratory studies, ordering and review of radiographic studies and re-evaluation of patient's condition I assumed direction of critical care for this patient from another provider in my specialty: no Care discussed with: admitting provider Last Recorded Vitals: BP: 141/79, Heart Rate: 100, Temp: 36.8 ?C (98.2 ?F), Resp: 22, SpO2: 100 %, Height: 152.4 cm (5'), Weight: 83.9 kg (185 lb) ED Course: as of 03/25/24 1136 SunMar 25, 2024 1043 Hgb(!!): 4.5 Patient symptom is 4.5 today. Her baseline is 6 and half to 7. She is symptomatic with shortness of breath and fatigue. I recommended admission to the hospital for transfusion. She agreed with plan of care. Secure chat message was sent to the hospitalist team for admission [MO] 1135 Dr. Martínez accepted admit to obs for symptomatic anemia [MO] ED Course: User Index [MO] Herminio Jimenez NP Diagnoses as of 03/25/24 1136 Symptomatic anemia Disposition: Admit/Observation ED Prescriptions None Discussed case with Dr. Troy , who developed, reviewed, and/or aprroved the plan of care. * * * ELEMENTS OF MEDICAL DECISION MAKING * * * PROBLEMS ADDRESSED [ x ] Patient presents with a problem that potentially represents a highly morbid condition with a possible threat to life or bodily function DATA REVIEWED AND ANALYZED Category 1: Test, documents, or independent historians Additional history was required and obtained from: [ ] Family/Friends [ ] EMS [ ] PCP/Specialist [ ] Other: Prior documentation reviewed: [ x ] H&P [ ] Clinic [ ] Conference Producer [ ] DC Summary [ ] Procedure [ ] Other: N/A Prior test results reviewed: [ x ] Serum labs [ ] Radiographs [ ] Other: N/A [ x ] Tests were ordered and the results were independently reviewed by me [ ] Tests considered but not ordered: Category 2: Independent interpretation of tests [ ] Tests were independently reviewed and interpreted by me Category 3: Discussion of management with another professional [ ] Conference Producer [x ] Admitting service [ ] Radiology [ ] Behavioral Health [ ] Other: PATIENT MANAGEMENT [ x ] hospitalization [ ] Controlled parenteral medications or medications requiring intensive monitoring were administered [ ] patient d/c home. Herminio Jimenez NP 03/25/24 1137 Cosigned by José Luis Troy MD at 03/25/2024 11:56 AM HOUSEKEEPING SUPERVISOR EKEEPING SUPERVISOR EKEEPING SUPERVISOR Associated attestation - José Luis Troy MD - 03/25/2024 11:56 AM HOUSEKEEPING SUPERVISOR I performed the substantive portion of the MDM. For the problems addressed, I personally developed, reviewed, and/or approved the plan and assessment as documented by the KENDRICK. Additionally, my independent interpretations of tests and discussion of management with external qualified health rn care transition include: Patient with acute on chronic anemia, patient currently symptomatic. Patient was given blood transfusion, will plan for admission. No signs or symptoms of bleeding. José Luis Troy MD [facility] [id number] 18:56:41 Written/verbal /d/c instructions, out of er no distress [facility]via Duque [id number] 18:48:01 Pt alert cheerful, denies any discomforts [facility]2024-11-06 17:32:14 Snacks provided, pt denies discomforts [facility]2024-11-06 16:50:25 Pt denies any discomforts, resp even u/l, [place] [id number] 16:35:40 Pt alert resp even u/l, denies any discomforts [place] [id number] 15:32:53 Pt given ice [facility] Silvia Orellana [id number] 14:44:52 Called lab to confirm why all samples are up for recollect, lab states all samples are diluted, explained to lab that pt had no infusing IV on arrival to ER, pt had US IV stick/blood draw, [place] [id number] 14:20:00 Pt states usually goes to for transfusion and iron infusions but having difficulty with her insurance so decided to come here, states started having to get transfusions after getting covid vaccine in 2019, [place] [id number] 13:18:25 Patient reports having chronic anemia and usually gets blood transfusions at , had one here two years ago, most recent a couple months ago. Reports tiredness, fatigue, shortness of breath on exertion and mental fatigue - states when she feels like this she usually gets a transfusion. TTE Uriarte [id number] 10:32:42 [facility] [id number] 10:32:42* Chloe Leo NP - 11/06/2023 10:15 AM CDT Subjective Patient ID: Allan Pollack is a 43 y.o. female who presents for COVID+ test at home Virtual visit Fever This is a new (COVID+ test at home) problem. The current episode started in the past 7 days (began 11/02/23). The problem occurs rarely. The problem has been waxing and waning. The maximum temperature noted was 100 to 100.9 F. The temperature was taken using an oral thermometer. Associated symptoms include congestion, coughing, muscle aches and a sore throat. Pertinent negatives include no abdominal pain, chest pain, nausea, rash, sleepiness, urinary pain, vomiting or wheezing. She has tried NSAIDs (robitussin, lozenges) for the symptoms. The treatment provided mild relief. Risk factors: sick contacts Risk factors: no contaminated food, no contaminated water, no hx of cancer, no immunosuppression, no occupational exposure, no recent sickness and no recent travel Review of Systems Constitutional: Positive for fever. HENT: Positive for congestion and sore throat. Respiratory: Positive for cough. Negative for wheezing. Cardiovascular: Negative for chest pain. Gastrointestinal: Negative for abdominal pain, nausea and vomiting. Genitourinary: Negative for dysuria. Skin: Negative for rash. Objective Physical Exam General: Well appearing, well developed, well nourished, good color in no apparent distress. Pt alert and oriented x 3. Speaking in complete sentences without increased work of breathing. No apparent rashes or skin breakdown. Lips appear pink and well hydrated without cracking or peeling. No apparent drainage from nose. No cough or hoarseness Eyes: Sclera white, conjunctiva clear, EOMI Neuro: speech clear, facies symmetrical, good strength and tone Psych: Mood congruent effect, responds appropriately to questions Assessment & Plan COVID Rx Paxlovid as below and benzonatate prn cough Discussed option of early treatment with oral Paxlovid. Advised that medication has been shown mainly to reduce likelihood of hospitalizations and may or may not improve symptoms. Side effects could include but are not limited to: diarrhea, altered sense of smell/taste, increase in blood pressure, muscle aches, headache. Advised if experiences unpleasant side effects, may discontinue medication at any time It is also possible for COVID symptoms to return after Paxlovid has been stopped. patient verbalized understanding and wishes to try paxlovid Advised rest, drink 6-8 glasses of water daily, and take fever orthotics prosthetics assistant like acetaminophen/Tylenol as directed if needed. Over the counter vitamins such as Vitamin C, Vitamin D and Zinc may be helpful. Follow bottle directions. Self-care: Wash your hands frequently with soap and water for 20 seconds. Cough or sneeze into elbow, throw away tissue after a single use, avoid touching face. Limit close contact with people who are sick. Avoid sharing personal household items such as dishes, drinking cups, towels or bedding. Advise not to leave home except to seek medical care. Per the CDC, may end isolation after 5 days if fever free for 24 hours without the use of fever-reducing medication and symptoms are improving. Until day 10, avoid travel, avoid persons who would be likely to become very sick from Covid and wear a mask when in public. Monitor symptoms: Seek prompt medical attention if illness is worsening (e.g. difficulty breathing or fever). Before seeking care, call your healthcare provider beforehand. Put on a facemask before entering a medical facility. These steps will help the healthcare provider's office to prevent other people in the office or waiting room from getting infected or exposed. If medical emergency and need to call 911, notify the dispatch personnel of COVID status. If possible, put on a face mask before emergency medical services arrive. Orders: nirmatrelvir & ritonavir (Paxlovid, 300/100,) 20 x 150 MG & 10 x 100MG tablet therapy pack; Take 3 tablets by mouth in the morning and 3 tablets in the evening. Do all this for 5 days. Follow the instructions on the package. benzonatate (Tessalon) 200 MG capsule; Take 1 capsule by mouth 3 times a day as needed for cough for up to 10 days. Do not crush or chew. Date of last in-person visit: 10/14/21 Provider location during the visit: [facility] [place] The patient is Established This visit was conducted as a video encounter. Patient's location during the visit: in [place] The patient has given verbal consent for a virtual visit encounter. All necessary consents have been obtained. For new patients, consent to treat and medication history consents have been obtained from the patient. Also present during the encounter and their role: no one else present A clinically appropriate history, exam, diagnosis and plan of care are outlined here. The patient was advised to contact their provider should they have any changein their clinical status prior to their next appointment. For time based visits only: Total time spent with the patient: 5 minutes [facility] [id number] 10:32:42Upcoming Encounters Health Maintenance Due Date Last Done Comments CT Colonography 1978 FIT-DNA 1978 FIT 1978 FOBT 1978 Sigmoidoscopy 1978 DTaP/Tdap/Td Vaccines (1 - Tdap) 1997 Hepatitis B Vaccines (1 of 3 - 19+ 3-dose series) 1997 HPV/Cotest 2008 Mammogram 2018 Influenza Vaccine (#1) 2023 Cervical Cancer Screening 10/31/2026 Pap Smear 10/31/2026 11/01/2023 Colonoscopy 04/02/2032 04/02/2022 Colorectal Cancer Screening 04/02/2032 HIB Vaccines Aged Out No longer eligi ble based on patient's age to complete this topic HPV Vaccines Aged Out No longer eligi ble based on patient's age to complete this topic Hepatitis A Vaccines Aged Out No long er eligible based on patient's age to complete this topic IPV Vaccines Aged Out No longer eligi ble based on patient's age to complete this topic Meningococcal Vaccine Aged Out No billie ezequiel eligible based on patient's age to complete this topic Pneumococcal Vaccine: Pediat rics (0 to 5 Years) and At-Risk Patients (6 to 64 Years) Aged Out No longer eligible b ased on patient's age to complete this topic Rotavirus Vaccines Aged Out No longer eligible based on patient's age to complete this topic [facility] [id number] 10:32:42 Diagnosis COVID - Primary [facility] [id number] 10:32:42 [facility] [id number] 10:32:08 Images from the original note were not included. [id number] COVID-19: Caring for Yourself or Others If you or a household member test positive for COVID-19 or have symptoms like fever, cough, fatigue, loss of taste or smell, follow these guidelines for preventing spread of the virus and managing symptoms. These apply even if you are vaccinated. If you have symptoms or have been diagnosed with COVID-19 If you have symptoms of COVID-19 or you test positive (even without symptoms): ? Stay home and away from others (including people you live with who are not sick) if you have respiratory virus symptoms that aren't better explained by another cause. You can go back to your normal activities when, for at least 24 hours, both are true: o Your symptoms are getting better overall, and o You have not had a fever and are not using fever-reducing medicine. ? When you go back to your normal activities, take extra precaution for the next 5 days, such as: o Improve airflow at home. For example, open windows to improve airflow, change filters in your air conditioning unit, and turn your thermostat to "on" instead of "auto" to improve airflow and filtration. For more tips, see the CDC website. o Don't share personal items such as eating or drinking utensils and linens or food. o Wear a high quality, well-fitting mask if you must be around others at home or in public. o If you develop a fever or you start to feel worse after you have gone back to normal activities, stay home and away from others again and repeat the process. Stay home until, for at least 24 hours, your symptoms are getting better and you have not had a fever and are not using fever-reducing medicines. Take extra precautions for another 5 days. ? If you need to cough or sneeze, do it into a tissue. Then throw the tissue into the trash. If you don't have tissues, cough or sneeze into the bend of your elbow. ? Wash your hands often. Self-care at home Protection You can protect yourself and others from getting COVID-19 or from getting very sick if you get it: ? Vaccinate. CDC recommends the 2023?202 updated COVID-19 vaccines to protect against serious illness from COVID-19. No vaccine is ever 100% effective in preventing any illness, but the COVID-19 vaccines work well and are safe. Expert groups, including ACOG and CDC, advise or people to be vaccinated. Talk with your healthcare provider about which COVID-19 vaccine is best for you and your family. ? Practice good handwashing. ? Stay home if you have suspected or confirmed COVID-19. ? Keep your distance from anyone who is sick or has tested positive for COVID-19 when possible. ? Get tested if needed. ? Wear a high-quality, well-fitted mask as advised. ? Improve airflow indoors and move indoor activities outside. Treatment Most people with COVID-19 recover with supportive care. This includes: ? Getting rest. This helps your body fight the illness. ? Staying hydrated. Drinking liquids is the best way to prevent dehydration. Try to drink 6 to 8 glasses of liquids every day, or as advised by your provider. Also check with your provider about which fluids are best for you. Don't drink fluids that contain caffeine or alcohol. ? Taking [id number] (OTC) pain medicine. These are used to help ease pain and reduce fever. Follow your healthcare provider's instructions for which OTC medicine to use. If you've been treated for suspected or confirmed COVID-19, follow all of your healthcare team's instructions. If you were treated at a hospital and discharged, you may be sent home with a pulse oximeter. This is a small electronic device that you clip on your fingertip. It measures the amount of oxygen in your body. Follow your healthcare team's instructions on its use, how they will be in touch with you, and let you know when to call them. Home care for a sick person ? Follow all instructions from healthcare staff. ? Wash your hands often. ? Make sure the sick person wears a mask. If they can't wear a mask, limit your time in the same room with the person and wear a mask around them. ? Keep track of the sick person?s symptoms. ? Monitor yourself for symptoms and take a COVID-19 test as advised by the CDC. Take a test even if you feel fine. ? Clean home surfaces often with disinfectant. This includes phones, kitchen counters, fridge door handle, bathroom surfaces, and others. ? Don?t let anyone share household items with the sick person. This includes eating and drinking tools, towels, sheets, or blankets. ? Clean fabrics and laundry thoroughly. ? Wear a high-quality mask around others as advised. When to call your healthcare provider If you have COVID-19 and are more likely to get very sick, call your healthcare provider or seek care right away. There are treatments available to reduce your risk of getting very sick or being hospitalized. Don't delay calling your provider or seeking care. Treatment must be started within 5 to 7 days after you first develop symptoms. Call your healthcare provider right away if a sick person has any of these: ? Trouble breathing ? Pain or pressure in chest If a sick person has any of these, call 911: ? Trouble breathing that gets worse ? Pain or pressure in chest that gets worse ? Blue tint to lips or face ? Fast or irregular heartbeat ? Confusion or trouble waking ? Fainting or loss of consciousness ? Coughing up blood Date last modified: 09/10/2023 Last Reviewed Date: 2023 ? [id number] [employer]. All rights reserved. This information is not intended as a substitute for professional medical care. Always follow your healthcare professional's instructions. [id number] 09:36:26* [facility]anoRoddbyh7226-96-83 09:36:26 [facility]Mndxrao1401-42-52 09:36:26 [facility]Gyyzsjm5583-04-51 09:36:26 Diagnosis Acute cystitis without hemat uria - Primary [facility]anoDkhondb6906-80-33 09:36:26 [place] [id number] 09:35:46 Left message stating new rx was sent to pharmacy AT [facility] [id number] 07:22:14 Patient called and stated that she went to er for her blood transfusion and uti stated they gave her cefpodoxime 200mg and states it was way to much over a 100$. Wants to know if Chloe can call her in something else like cipro something that is cheaper [facility] E[facility] Segundo-07-15 16:52:31* Consultation (Urgent) - Pending Review Specialty Diagnoses / Procedures Referred By Mini eldridge Referred To Contact Gynecology Diagnoses Menorrhagia with regular cycle Procedures CA OFFICE/OUTPATIENT NEW HIGH MDM 60-74 MINUTES Chloe Leo NP [address] [place] [id number] Referral ID Status Reason Start Date Expiration Date Visits Requested Visits Authorized [id number] Pending Review Specialty Services Required 10/15/2023 04/12/2024 1 1 [id number] 16:52:31* [facility]vxacw9225-10-03 16:52:31 [facility] ClubMmsjseh2231-25-02 16:52:31* Chloe Leo NP - 10/15/2023 3:30 PM CDT Subjective Patient ID: Allan Pollack is a 43 y.o. female who presents for Anemia (Wants labs ). HPI New patient here to establish care. Few past records available for my review at time of visit Pt thinks she is very anemic and has been eating ice. Pt feels like she did in the past when she required a blood transfusion. History of iron deficiency anemia requiring iron infusions per hematology in the past. Last blood transfusion 06/2023 at [facility] Had been told in the past would need a hysterectomy due to heavy menstrual bleeding but was not able to complete workup and now insurance has changed. Will need referral to new LATHMAKER Last LATHMAKER appt 2 years ago Type O+ blood Oral iron caused constipation and GI upset in the past and declines to take Insurance changed and needs to establish with a new budget coordinator. Will need referral Colonoscopy with Dr. Negrete 2022 +hemorrhoids GERD: famotidine works well for her and would like RF Anx/MDD: c/o feeling easily irritated. Had used lexapro in the past but had some mild fatigue Review of Systems Constitutional Symptoms: no fever, no weight changes, +fatigue Head/Face: no facial/sinus pain Ears, Nose, Mouth, Throat: no sore throat or ear pain Cardiovascular: no chest pain Respiratory: no cough/SOB/sputum production Gastrointestinal: no NVD, no abdominal pain Musculoskeletal: no arthralgia, no myalgia, no stiffness Psychiatric: no anxiety, no depression, no insomnia All others reviewed and negative except as in HPI Objective Physical Exam Blood pressure 112/78, pulse 83, temperature 37.1 ?C (98.7 ?F), temperature source Oral, resp. rate 16, height 1.524 m (5'), weight 83.9 kg (185 lb), last menstrual period 09/24/2023, SpO2 100%. General Appearance: Well appearing, well developed, well nourished, well hydrated, good color, and in no acute distress. No apparent shortness of breath and speaking in complete sentences Head: Normocephalic atraumatic Eyes: PERRLA, +pallor Mouth: Moist mucous membranes with some pallor Chest Wall: No retractions Lungs: CTA bilaterally, no wheezes/rales/rhonchi, and good air entry Heart: Regular rate and regular rhythm, no murmur Musculoskeletal: No obvious deformity. Moves all 4 extremities, stable gait. No C/C/E Neurologic: Alert/appropriate, normal strength, normal tone. Clear speech, aao x 3. Psych: Mood congruent affect, responds appropriately to questions. Assessment & Plan Menorrhagia with regular cycle Source of anemia. Pt has not seen LATHMAKER in 2 years. Refer LATHMAKER - strongly urged to keep appts with LATHMAKER for eval/tx heavy menses to prevent further emergent anemia tx Lab pending today. Discussed reasons to seek ER: chest pain, SOB, dizziness, fainting. Advised if severely anemic will be sending her to the ER for transfusion Orders: Ambulatory referral to Gynecology; Future Iron Level and TIBC; Future Ferritin; Future Vitamin B12 Level; Future Complete Blood Count w/Diff and Platelet; Future Iron deficiency anemia due to chronic blood loss Lab pending. Will likely refer to Hematology pending labs Orders: Iron Level and TIBC; Future Ferritin; Future Vitamin B12 Level; Future Complete Blood Count w/Diff and Platelet; Future Comprehensive metabolic panel; Future Chronic fatigue Orders: Iron Level and TIBC; Future Ferritin; Future Vitamin B12 Level; Future Complete Blood Count w/Diff and Platelet; Future Comprehensive metabolic panel; Future Pallor Orders: Iron Level and TIBC; Future Ferritin; Future Vitamin B12 Level; Future Complete Blood Count w/Diff and Platelet; Future Gastric reflux Renew famotidine as below Orders: famotidine (Pepcid) 40 MG tablet; Take 1 tablet by mouth 1 time each day. Mixed anxiety depressive disorder Rx citalopram 20mg daily - discussed use of antidepressant/anxiolytic meds. Advised it may take 2-4 weeks to reach full effect at that dose. - common side effects include fatigue, low grade headache, dry mouth and constipation - These meds are daily medications and are not to be used as needed. Also, do not take extra medications or alter dose on own - advised these classes of meds are designed to help improve mood, however small risk exists that medication may cause worsening of mood and less commonly suicidal/homocidal thoughts. Should these occur, stop medication and call clinic or go to nearest emergency center - follow up 1 month if needed. Virtual ok Orders: citalopram (CeleXA) 20 MG tablet; Take 1 tablet by mouth 1 time each day. As the patient's primary care provider, will add G2211 as an additional CPT code to account for the long-term, comprehensive, longitudinal care of complex medical conditions addressed during this visit and requiring review of historical medical records including, but not limited to, specialist records, laboratory testing, imaging, and coordination of care with specialists. [facility]2024-07-15 16:52:31Scheduled Orders Scheduled Referrals Name Type Priority Associated Diagnoses Orde r Schedule Ambulatory referral to Gynecology Outpatient Referral STAT Menorrhagia with regular cycle Expected: 10/15/2023 (Approximate), Expires: 04/16/2024 Health Maintenance Due Date Last Done Comments CT Colonography 1978 FIT-DNA 1978 FIT 1978 FOBT 1978 Sigmoidoscopy 1978 DTaP/Tdap/Td Vaccines (1 - Tdap) 1997 Hepatitis B Vaccines (1 of 3 - 19+ 3-dose series) 1997 Pap Smear 10/12/1999 Cervical Cancer Screening 2008 HPV/Cotest 2008 Mammogram 2018 Influenza Vaccine (#1) 2023 Colonoscopy 04/02/2032 04/02/2022 Colorectal Cancer Screening 04/02/2032 HIB Vaccines Aged Out No longer eligi ble based on patient's age to complete this topic HPV Vaccines Aged Out No longer eligi ble based on patient's age to complete this topic Hepatitis A Vaccines Aged Out No long er eligible based on patient's age to complete this topic IPV Vaccines Aged Out No longer eligi ble based on patient's age to complete this topic Meningococcal Vaccine Aged Out No billie ezequiel eligible based on patient's age to complete this topic Pneumococcal Vaccine: Pediat rics (0 to 5 Years) and At-Risk Patients (6 to 64 Years) Aged Out No longer eligible b ased on patient's age to complete this topic Rotavirus Vaccines Aged Out No longer eligible based on patient's age to complete this topic Maria Isabel JefferyUebvdfi6939-35-81 16:52:31 Diagnosis Menorrhagia with regular cyc le - Primary Iron deficiency anemia due to chronic blood loss Iron deficiency anemia secondary to blood loss (chronic) Chronic fatigue Other malaise and fatigue Pallor Gastric reflux Esophageal reflux Mixed anxiety depressive dis order Maria Isabel JefferyZkgldak1380-62-05 16:52:31 Maria Isabel Jeffery
[2024-08-12 20:16] LABS: Anion Gap 8.3 mEq/L (5.0-15.0); Potassium 3.3 mEq/L (3.5-5.1)
[2024-08-12 20:21] LABS: Absolute Eosinophils 0.1 K/uL (0-0.5); Absolute Lymphocytes (CBC) 1.3 K/uL (0.7-4.9); Absolute Monocytes 0.6 K/uL (0.1-1.3); Absolute Neutrophil 5.1 K/uL (1.8-8.0); Basophils % 0.5 % (0-1.3); Hematocrit 21.1 % (36.0-45.0); Lymphocytes % 18.5 % (15.3-44.8); MCH 23.8 pg (27.0-35.0); MCV 72.3 fL (80-100); MPV 6.8 fL (7.6-11.3); Monocytes % 8.8 % (3.3-12.3); Neutrophils % 71.2 % (41.7-73.7); Platelets 528 thou/uL (152-406); RBC Red Blood Cell Count 2.92 M/uL (3.86-4.86); Red Cell Distribution Width 25.6 % (12.1-15.2)
[2024-08-12] MEDS ORDERED: NA CHLORIDE 0.9% 1,000 ML ONE (20:25)
--- NOTE | 2024-08-12 21:08 | ER ---
Nurse's Notes [facility] Name: Jory Wood Age: 43 yrs Sex: Female : 1980 Arrival Date: 08/12/2024 Time: 18:39 Bed 19 Private MD: Diagnosis: Anemia, unspecified Presentation: 08/12 19:07 Chief complaint: Patient states: hx of anemia and blood transfusions, she has been iw having a heavy period X 11 days , going through 5-7 pads per day , started feeling SOB and dizzy X 2 days. Coronavirus screen: At this time, the client does not indicate any symptoms associated with coronavirus-19. Ebola Screen: No symptoms or risks identified at this time. Initial Sepsis Screen: Does the patient meet any 2 criteria? No. Patient's initial sepsis screen is negative. Does the patient have a suspected source of infection? No. Patient's initial sepsis screen is negative. Risk Assessment: Do you want to hurt yourself or someone else? Patient reports no desire to harm self or others. Onset of symptoms was August 10, 2024. 19:07 Method Of Arrival: Ambulatory iw 19:07 Acuity: ARUN 3 iw Triage Assessment: 21:24 Pain: Denies pain. 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 - Infectious Disease History:: Denies. - Social history:: Smoking status: Patient denies any tobacco usage or history of. Screenin:[address] [facility] ED Fall Risk Assessment (Adult) History of falling in the last 3 months, kj2 including since admission No falls in past 3 months (0 pts) Confusion or Disorientation No (0 pts) Intoxicated or Sedated No (0 pts) Impaired Gait No (0 pts) Mobility Assist Device Used No (0 pt) Altered Elimination No (0 pt) Score/Fall Risk Level 0 - 2 = Low Risk Maintained a safe environment, Hourly rounding (assess needs \T\ fall precautionary measures) done. Abuse screen: Denies threats or abuse. Denies injuries from another. Nutritional screening: No deficits noted. Tuberculosis screening: No symptoms or risk factors identified. Assessment: 19:51 General: Appears in no apparent distress. Behavior is calm, cooperative. Neuro: Level kj2 of Consciousness is awake, alert, obeys commands, Oriented to person, place, time, situation. Cardiovascular: Patient's skin is warm and dry. Respiratory: Airway is patent Respiratory effort is unlabored. GI: No signs and/or symptoms were reported involving the gastrointestinal system. : Reports vaginal bleeding that is heavy flow. 20:53 Reassessment: Patient appears in no apparent distress at this time. Patient and/or kj2 family updated on plan of care and expected duration. Pain level reassessed. Patient is alert, oriented x 3, equal unlabored respirations, skin warm/dry/pink. 21:23 Reassessment: Patient appears in no apparent distress at this time. Patient and/or kj2 family updated on plan of care and expected duration. Pain level reassessed. Patient is alert, oriented x 3, equal unlabored respirations, skin warm/dry/pink. Vital Signs: 19:07 BP 131 / 95; Pulse 96; Resp 18; Temp 98.2; Pulse Ox 100% ; Weight 83.91 kg; Height 5 iw ft. 0 in. ; Pain 2/10; 20:54 BP 109 / 69; Pulse 76; Resp 18; Pulse Ox 100% on R/A; kj2 21:23 BP 116 / 79; Pulse 78; Resp 18; Temp 97.9; Pulse Ox 100% on R/A; kj2 19:07 Body Mass Index 36.13 (83.91 kg, 152.4 cm) iw 19:07 Pain Scale: Adult iw ED Course: 18:42 Patient arrived in ED. cj3 18:56 Danay Vargas FNP-C is [facility]. kb 18:56 Tonie Moreno MD is Attending Physician. kb 19:10 Triage completed. iw 19:11 Arm band placed on. iw 19:50 Smita Miller, ANA is Primary Nurse. kj2 19:52 Patient has correct armband on for positive identification. Bed in low position. Call kj2 light in reach. Provided Education on: call light. 21:24 No provider procedures requiring assistance completed. kj2 21:25 IV discontinued, intact, bleeding controlled, No redness/swelling at site. Pressure kj2 dressing applied. Administered Medications: 20:35 Drug: NS 0.9% IV 1000 ml IV at 1000 ml once; to be given as a bolus over 60 minutes kj2 Route: IV; Rate: 1000 ml; Site: right forearm; 21:43 Follow up: IV Status: Completed infusion; IV Intake: 1000ml kj2 21:43 Drug: Potassium Chloride PO 20 mEq PO once Route: PO; kj2 21:43 Follow up: Response: Medication administered at discharge. kj2 Medication: 19:52 VIS not applicable for this client. kj2 Intake: 21:43 IV: 1000ml; Total: 1000ml. kj2 Outcome: 21:07 Discharge ordered by MD. shook 21:24 Discharged to home ambulatory, kj2 21:24 Condition: stable 21:24 Discharge instructions given to patient, Instructed on discharge instructions, follow up and referral plans. Demonstrated understanding of instructions, follow-up care, 21:44 Patient left the ED. kj2 Signatures: Danay Vargas, ACCOUNTING INTERN-C PETAR-Falguni Alva RN RN iw Smita Miller RN RN kj2 Patricia Zamorano 3
--- NOTE | 2024-08-12 21:08 | EDPHYS ---
Physician Documentation [facility] Name: Jory Wood Age: 43 yrs Sex: Female : 1980 Arrival Date: 08/12/2024 Time: 18:39 Bed 19 Private MD: ED Physician Tonie Moreno HPI: 08/12 19:13 This 43 yrs old Female presents to ER via Ambulatory with complaints of Low kb Blood Count. 19:13 Pt is a 43 year old female who presents for dizziness and shortness of breath on kb exertion that started yesterday. States she has a history of anemia and has had to have multiple transfusions. 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 Reports she has been on her period for 11 days which is abnormal for her. . 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 - Infectious Disease History:: Denies. - Social history:: Smoking status: Patient denies any tobacco usage or history of. ROS: 19:15 Constitutional: As per HPI kb Exam: 19:15 Head/Face: Normocephalic, atraumatic. ENT: Moist Mucous membranes Cardiovascular: kb Regular rate Respiratory: Respirations even and unlabored. No increased work of breathing. Talking in full sentences Abdomen/GI: Soft, non-tender. No distention Skin: Warm, dry with normal turgor. Normal color. MS/ Extremity: Pulses equal, no cyanosis. Neurovascular intact. Full, normal range of motion. Neuro: Awake and alert, GCS 15, oriented to person, place, time, and situation. 19:15 Constitutional: The patient appears alert, awake, pale, Vital Signs: 19:07 BP 131 / 95; Pulse 96; Resp 18; Temp 98.2; Pulse Ox 100% ; Weight 83.91 kg; Height 5 iw ft. 0 in. ; Pain 2/10; 20:54 BP 109 / 69; Pulse 76; Resp 18; Pulse Ox 100% on R/A; kj2 21:23 BP 116 / 79; Pulse 78; Resp 18; Temp 97.9; Pulse Ox 100% on R/A; kj2 19:07 Body Mass Index 36.13 (83.91 kg, 152.4 cm) iw 19:07 Pain Scale: Adult iw MDM: 18:56 Medical Screening Exam initiated kb 19:16 Data reviewed: vital signs, nurses notes. kb 21:06 Differential diagnosis: anemia, dehydration, abnormal electrolytes. Counseling: I had a kb detailed discussion with the patient and/or guardian regarding the historical points, exam findings, and any diagnostic results supporting the discharge/admit diagnosis, lab results, the need for outpatient follow up, a family practitioner, to return to the emergency department if symptoms worsen or persist or if there are any questions or concerns that arise at home. 08/12 19:13 Order name: Type And Screen; Complete Time: 20:59 kb 08/12 19:13 Order name: CBC with Diff kb 08/12 19:13 Order name: BMP; Complete Time: 20:17 kb 08/12 19:13 Order name: IV Start; Complete Time: 19:59 kb Administered Medications: 20:35 Drug: NS 0.9% IV 1000 ml IV at 1000 ml once; to be given as a bolus over 60 minutes kj2 Route: IV; Rate: 1000 ml; Site: right forearm; 21:43 Follow up: IV Status: Completed infusion; IV Intake: 1000ml kj2 21:43 Drug: Potassium Chloride PO 20 mEq PO once Route: PO; kj2 21:43 Follow up: Response: Medication administered at discharge. kj2 Disposition Summary: 08/12/24 21:07 Discharge Ordered Notes: Location: Home kb Condition: Stable kb Diagnosis - Anemia, unspecified kb Followup: kb - With: Emergency Department - When: As needed - Reason: Worsening of condition Followup: kb - With: Private Physician - When: 2 - 3 days - Reason: Recheck today's complaints, Continuance of care, Re-evaluation by your physician Discharge Instructions: - Discharge Summary Sheet kb - Anemia kb Forms: - Medication Reconciliation Form kb - Antibiotic Education kb - Prescription Opioid Use kb - Patient Portal Instructions kb - Leadership Thank You Letter kb Signatures: Dispatcher [employer] Danay Gallardo, TOBIN INTERVENTIONAL PAIN PHYSICIAN-Falguni Alva, RN RN Smita Matos RN RN kj2
[2024-08-12] MEDS ORDERED: POTASSIUM CL SA 10 MEQ TAB PO ONE (21:35)
[2024-08-12 21:49] VITALS: O2SAT 100
[2024-08-12 21:52] VITALS: BP 116/79; TEMP 97.9
[2024-08-12 23:44] LABS: Anisocytosis 3+; Blood Morphology Comment NOTED (NOT SEEN); Hypochromasia 1+; Microcytosis 1+; Platelet Estimate ADEQ; White Blood Cell Scan OK (OK)
== END 2024-08-12 21:44 | disposition home or self-care (01) ==
LOC: ER 18:39
DX: D64.9 Anemia, unspecified (principal)
CPT/HCPCS: 85025; 80048; 36415; 86900; 86850; 86901; 96360; 99284; J7030